=== PATIENT | female | born 1940 | race Caucasian/White ===

== ENCOUNTER 2017-09-21 12:34 | Inpatient (IN) | payer MEDICARE ==
[2017-09-21] MEDS ORDERED: METF-410 PO (12:45)
[2017-09-21] MEDS ORDERED: FURO20TA19 PO (12:46)
[2017-09-21] MEDS ORDERED: LEVO50TA86 PO (12:46)
[2017-09-21] MEDS ORDERED: LISI-362 PO (12:46)
[2017-09-21 13:32] LABS: PLATELET COUNT, AUTOMATED 212 K/uL (150-450)
--- NOTE | 2017-09-21 13:33 | EKG ---
FACILITY: [facility] PATIENT NAME: BAM LOCKWOOD : [id number] MR: [id number] V: [id number] EXAM DATE: ORDERING PHYSICIAN: MARCELLUS SONG TECHNOLOGIST: Andres Brown Reason : Blood Pressure : / mmHG Vent. Rate : 112 BPM Atrial Rate : 112 BPM P-R Int : 150 ms QRS Dur : 084 ms QT Int : 356 ms P-R-T Axes : 050 019 088 degrees QTc Int : 485 ms Sinus tachycardia Possible Left atrial enlargement Possible Anterolateral infarct , age undetermined Abnormal ECG No previous ECGs available Confirmed by EARL GASCA ([id number]) on 09/21/2017 11:47:15 PM Referred By: Confirmed By:EARL GASCA
--- NOTE | 2017-09-21 13:52 | ER Report ---
History and Physical Time Seen By MD: 13:12 Hx. of Stated Complaint: PT C/O SOB AND SWOLLEN ANKLES. WAS TAKING DIURETICS BUT THEY ARE NO LONGER WORKING HPI/ROS Chief concern: shortness of breath, swelling in legs. HPI: 77 y/o female presents with concern of shortness of breath x1 month and lower extremity edema x3 weeks. Currently taking Lasix for heart failure, denies taking dose this morning, but takes as ordered otherwise; unsure of dosage. Denies chest pain,heart palpitations, nausea/vomiting, fever, chills, sweats. Reports cool extremities, "gurgling, crackles" cough, wheezing, and occasional "wobbliness" when she stands up. Reports she has been sleeping in her arm chair for one month, due to increased difficulty breathing. Reports a weight loss Review of Systems: General: Respiratory: CV: GI: Neuro: Allergies: Coded Allergies: hydrochlorothiazide (Verified Allergy, Intermediate, RASH, 09/21/17) Home Meds Reported Medications Pravastatin Sodium (PRAVACHOL) 20 Mg Tablet, 40 MG PO QDAY, TAB 09/21/17 Lisinopril (LISINOPRIL) 40 Mg Tablet, 40 MG PO QDAY, TAB 09/21/17 Glipizide (GLIPIZIDE) 10 Mg Tablet, 10 MG PO BIDAC 09/21/17 Allopurinol (ZYLOPRIM) 300 Mg Tablet, 600 MG PO QDAY, TAB 09/21/17 Levothyroxine Sodium (LEVOTHYROXINE SODIUM) 50 Mcg Tablet, 100 MCG PO QDAY, TAB 09/21/17 Furosemide (LASIX) 20 Mg Tablet, 1 TAB PO QDAY, TAB 09/21/17 Metformin Hcl (METFORMIN HCL) 500 Mg Tablet, 1 TAB PO BID, TAB 09/21/17 Discontinued Reported Medications Lisinopril (LISINOPRIL) 10 Mg Tablet, 10 MG PO QDAY, TAB 09/21/17 Past Medical/Surgical History congestive heart failure date undetermined, kidney injury 2001; Reviewed Nurses Notes: Yes Old Medical Records Reviewed: No Hx Smoking: Yes Smoking Status: Former Smoker Hx Substance Use Disorder: No Hx Alcohol Use: No Constitutional Vital Sign - Last 24 Hours 09/21/17 09/21/17 09/21/17 09/21/17 12:38 12:40 13:04 13:34 Temp 96.3 Pulse 142 115 112 Resp 22 19 10 B/P (MAP) 124/80 124/80 (95) Pulse Ox 92 93 O2 Delivery Room Air 09/21/17 09/21/17 09/21/17 13:42 14:00 14:04 Pulse 105 Resp 25 B/P (MAP) 118/71 (87) 101/70 (80) Pulse Ox 90 Physical Exam Physical Exam: General: Alert, oriented x3, in no acute distress HENT: Posterior pharynx pink, no lymphadenopathy. Respiratory: coarse crackles scattered throughout, decreased respiratory effort , no acute respiratory distress CV: irregular rate and rhythm, 4+ pitting edema bilateral lower extremities, dorsalis pedis pulse nonpalpable, radial pulse 2+ regular, capillary refill < 2seconds all extremities GI: bowel sounds normoactive all quadrants, no tenderness to palpation. After obtaining thorough HPI and ROS, the following differentials were considered but not limited to: congestive heart failure, pulmonary embolism, myocardial infarction, kidney injury, stroke, pulmonary congestion. Medical Decision Making Data Points Result Diagram: 09/21/17 1315 09/21/17 1315 Laboratory Hematology Test 09/21/17 13:15 Red Blood Count 4.58 M/uL (4.17-5.56) Mean Corpuscular Volume 90.0 fL (80.0-96.0) Mean Corpuscular Hemoglobin 29.6 pg (26.0-33.0) Mean Corpuscular Hemoglobin Concent 32.9 g/dL (32.0-36.0) Red Cell Distribution Width 15.2 % (11.5-14.5) Mean Platelet Volume 9.1 fL (7.2-11.1) Neutrophils (%) (Auto) 76.4 % (39.4-72.5) Lymphocytes (%) (Auto) 14.4 % (17.6-49.6) Monocytes (%) (Auto) 6.4 % (4.1-12.4) Eosinophils (%) (Auto) 1.9 % (0.4-6.7) Basophils (%) (Auto) 0.9 % (0.3-1.4) Nucleated RBC Relative Count (auto) 0.1 /100WBC Neutrophils # (Auto) 4.7 K/uL (2.0-7.4) Lymphocytes # (Auto) 0.9 K/uL (1.3-3.6) Monocytes # (Auto) 0.4 K/uL (0.3-1.0) Eosinophils # (Auto) 0.1 K/uL (0.0-0.5) Basophils # (Auto) 0.1 K/uL (0.0-0.1) Nucleated RBC Absolute Count (auto) 0.01 K/uL D-Dimer Quantitative (PE/DVT) 3.40 ug/ml (0-0.50) Sodium Level 141 mmol/L (137-145) Potassium Level 3.0 mmol/L (3.5-5.0) Chloride Level 105 mmol/L (98-107) Carbon Dioxide Level 20 mmol/L (22-31) Blood Urea Nitrogen 27 mg/dl (7-18) Creatinine 1.80 mg/dl (0.52-1.04) Glomerular Filtration Rate Calc 27.4 Random Glucose 157 mg/dl (75-110) Calcium Level 9.1 mg/dl (8.4-10.2) Total Bilirubin 0.6 mg/dl (0.2-1.3) Aspartate Amino Transf (AST/SGOT) 16 U/L (0-35) Alanine Aminotransferase (ALT/SGPT) 22 U/L (0-56) Alkaline Phosphatase 97 U/L (0-126) Troponin I 0.017 ng/ml B-Type Natriuretic Peptide 2550 pg/ml (0-100) Total Protein 6.5 gm/dl (6.3-8.2) Albumin 3.6 g/dl (3.5-5.0) Chemistry Test 09/21/17 13:15 White Blood Count 6.1 k/uL (4.5-11.0) Red Blood Count 4.58 M/uL (4.17-5.56) Hemoglobin 13.6 g/dL (12.0-16.0) Hematocrit 41.2 % (34.0-47.0) Mean Corpuscular Volume 90.0 fL (80.0-96.0) Mean Corpuscular Hemoglobin 29.6 pg (26.0-33.0) Mean Corpuscular Hemoglobin Concent 32.9 g/dL (32.0-36.0) Red Cell Distribution Width 15.2 % (11.5-14.5) Platelet Count 212 K/uL (150-450) Mean Platelet Volume 9.1 fL (7.2-11.1) Neutrophils (%) (Auto) 76.4 % (39.4-72.5) Lymphocytes (%) (Auto) 14.4 % (17.6-49.6) Monocytes (%) (Auto) 6.4 % (4.1-12.4) Eosinophils (%) (Auto) 1.9 % (0.4-6.7) Basophils (%) (Auto) 0.9 % (0.3-1.4) Nucleated RBC Relative Count (auto) 0.1 /100WBC Neutrophils # (Auto) 4.7 K/uL (2.0-7.4) Lymphocytes # (Auto) 0.9 K/uL (1.3-3.6) Monocytes # (Auto) 0.4 K/uL (0.3-1.0) Eosinophils # (Auto) 0.1 K/uL (0.0-0.5) Basophils # (Auto) 0.1 K/uL (0.0-0.1) Nucleated RBC Absolute Count (auto) 0.01 K/uL D-Dimer Quantitative (PE/DVT) 3.40 ug/ml (0-0.50) Glomerular Filtration Rate Calc 27.4 Calcium Level 9.1 mg/dl (8.4-10.2) Total Bilirubin 0.6 mg/dl (0.2-1.3) Aspartate Amino Transf (AST/SGOT) 16 U/L (0-35) Alanine Aminotransferase (ALT/SGPT) 22 U/L (0-56) Alkaline Phosphatase 97 U/L (0-126) Troponin I 0.017 ng/ml B-Type Natriuretic Peptide 2550 pg/ml (0-100) Total Protein 6.5 gm/dl (6.3-8.2) Albumin 3.6 g/dl (3.5-5.0) Coagulation Test 09/21/17 13:15 D-Dimer Quantitative (PE/DVT) 3.40 ug/ml EKG/Imaging EKG Interpretation 12 lead EKG: Rhythm: Sinus tachycardia with ventricular rate of 112 bpm [place]: normal QRS: Low voltage QRS ST segments: normal Monitor Interpretation: Sinus Tachycardia Imaging CHEST PA AND LAT COMPARISONS: None. ADDITIONAL PERTINENT HISTORY: Shortness of breath FINDINGS: Cardiomediastinal silhouette: Negative. Pulmonary vasculature: Mild atherosclerotic disease of the thoracic aortic arch. Mild vascular congestion without shirley pulmonary edema. Lung villasenor: Bibasilar atelectatic change. Pleural spaces: Small bilateral pleural effusions. Osseous structures: Negative. Surrounding soft tissues: Negative. IMPRESSION: 1. Underlying vascular congestion without shirley pulmonary edema. 2. Small bilateral pleural effusions with overlying atelectatic change. Report Dictated By: Carlos Arriaga MD at 09/21/2017 1:56 PM Report E-Signed By: Carlos Arriaga MD at 09/21/2017 1:57 PM ED Course/Re-evaluation ED Course Patient admitted to exam room. Thorough HPI and ROS obtained. Physical exam: coarse crackles scattered throughout, decreased respiratory effort, no acute respiratory distress; CV: irregular rate and rhythm, 4+ pitting edema bilateral lower extremities, dorsalis pedis pulse nonpalpable, radial pulse 2+ regular, capillary refill <2seconds all extremities; GI: bowel sounds normoactive all quadrants, no tenderness to palpation. The following differentials were considered but not limited to: congestive heart failure, pulmonary embolism, myocardial infarction, kidney injury, stroke, pulmonary congestion. Tests ordered include: CXR, ECG, CBC, CMP, BNP, troponin, and d-dimer. BNP levels 2, 500, troponin 0.017, d-dimer 3.4, GFR 27, BUN 27, creatinine 1.8. CXR: IMPRESSION: 1. Underlying vascular congestion without shirley pulmonary edema. 2. Small bilateral pleural effusions with overlying atelectatic change. ECG: sinus tachycardia, possible left atrial enlargement, low voltage QRS; possible anterolateral infarct, age undetermined. After discussion with patient and the hospitalist, will admit to hospital today. Patient refused catheter placement. Will administer 40mg Lasix IV. Discussed with patient, and patient verbalized understanding and agreement to plan. Decision to Disposition Date: Sep 21, 2017 Decision to Disposition Time: 14:22 Depart Departure Latest Vital Signs Vital Signs Date Time Temp Pulse Resp B/P (MAP) Pulse Ox O2 Delivery O2 Flow Rate FiO2 09/21/17 14:04 105 25 90 09/21/17 14:00 101/70 (80) 09/21/17 12:38 96.3 Room Air Impression: Primary Impression: Congestive heart failure (CHF) Additional Impression: Hypokalemia Condition: Condition Unchanged Disposition: Admitted from ER Referrals: RACHANA CHRISTY (PCP) Problem Qualifiers Primary Impression: Congestive heart failure (CHF) Heart failure type: unspecified Heart failure chronicity: acute Qualified Codes: I50.9 - Heart failure, unspecified MARCELLUS SONG Sep 21, 2017 13:52
--- NOTE | 2017-09-21 14:01 | RADIOLOGY IMAGING REPORT ---
FACILITY: [facility] PATIENT NAME: Maribel Valdovinos : 1940 MR: [id number] V: [id number] EXAM DATE: ORDERING PHYSICIAN: MARCELLUS SONG TECHNOLOGIST: Location: [facility] [place] Patient: Maribel Valdovinos : 1940 Visit/Account:[id number] Date of Sevice: 09/21/2017 CHEST PA AND LAT COMPARISONS: None. ADDITIONAL PERTINENT HISTORY: Shortness of breath FINDINGS: Cardiomediastinal silhouette: Negative. Pulmonary vasculature: Mild atherosclerotic disease of the thoracic aortic arch. Mild vascular conge stion without shirley pulmonary edema. Lung villasenor: Bibasilar atelectatic change. Pleural spaces: Small bilateral pleural effusions. Osseous structures: Negative. Surrounding soft tissues: Negative. IMPRESSION: 1. Underlying vascular congestion without shirley pulmonary edema. 2. Small bilateral pleural effusions with overlying atelectatic change. Report Dictated By: Carlos Arriaga MD at 09/21/2017 1:56 PM Report E-Signed By: Carlos Arriaga MD at 09/21/2017 1:57 PM WSN:[email or web address]
[2017-09-21] MEDS ORDERED: FUROSEMIDE 40 MG/4 ML VIAL IVP ONE (14:25)
[2017-09-21 15:05] VITALS: BP 109/73
[2017-09-21] MEDS ORDERED: FLUSH 10 ML SYR IVP PRN (15:05)
[2017-09-21] MEDS ORDERED: ALLO-119 PO (16:02)
[2017-09-21] MEDS ORDERED: GLIP-154 PO (16:02)
[2017-09-21] MEDS ORDERED: LISI-374 PO (16:02)
[2017-09-21] MEDS ORDERED: PRAV20TA65 PO (16:02)
[2017-09-21] MEDS ORDERED: KCL (*) 20 MEQ/100 ML PREMIX 100 ML IV ONE (16:45)
[2017-09-21] MEDS ORDERED: NS(*) 0.9% 250 ML BAG 250 ML IVPB PRN (17:05)
--- NOTE | 2017-09-21 17:14 | History & Physical ---
History of Present Illness Chief Complaint Increased lower extremity swelling and increased shortness of breath for the past month. History of Present Illness The patient is a 77 year old female with PMH significant for stage 3 CKD, HTN and type 2 DM who presents with increased LE edema and shortness of breath for about a month. The patient states she has had LE edema which waxes and wanes but over the past month it has worsened significantly and extends to her knees. She denies any skin breakdown with this. The patient also notes she has had increased dyspnea with exertion. She can only walk a short distance without having to stop and catch her breath. She has also developed orthopnea and says if she doesn't prop herself up in bed she becomes short of breath. She also has some PND. She denies any history of cardiac issues. She does have a FH of CAD in her father. She has never smoked but does have HTN, hyperlipidemia and type II DM. She drinks about 2 glasses of wine per year. History Problems: (1) Atrophy of right kidney Status: Chronic (2) Vaginal delivery Status: Resolved Comment: X 3 (3) Hyperlipidemia Status: Chronic (4) Leg edema Status: Chronic (5) HTN (hypertension) Status: Chronic (6) CKD (chronic kidney disease) stage 3, GFR 30-59 ml/min Status: Chronic (7) Gout Status: Chronic (8) Type II diabetes mellitus Status: Chronic (9) Hypothyroidism Status: Chronic Home Meds Reported Medications Pravastatin Sodium (PRAVACHOL) 20 Mg Tablet, 40 MG PO QDAY, TAB 09/21/17 Lisinopril (LISINOPRIL) 40 Mg Tablet, 40 MG PO QDAY, TAB 09/21/17 Glipizide (GLIPIZIDE) 10 Mg Tablet, 10 MG PO BIDAC 09/21/17 Allopurinol (ZYLOPRIM) 300 Mg Tablet, 600 MG PO QDAY, TAB 09/21/17 Levothyroxine Sodium (LEVOTHYROXINE SODIUM) 50 Mcg Tablet, 100 MCG PO QDAY, TAB 09/21/17 Furosemide (LASIX) 20 Mg Tablet, 1 TAB PO QDAY, TAB 09/21/17 Metformin Hcl (METFORMIN HCL) 500 Mg Tablet, 1 TAB PO BID, TAB 09/21/17 Discontinued Reported Medications Lisinopril (LISINOPRIL) 10 Mg Tablet, 10 MG PO QDAY, TAB 09/21/17 Allergies: Coded Allergies: hydrochlorothiazide (Verified Allergy, Intermediate, RASH, 09/21/17) Patient History: FH: CAD (coronary artery disease) FATHER FH: hearing loss MOTHER BROTHER OR SISTER FH: rheumatoid arthritis CHILD Other Social/Family Hx The patient is and lives in [place]. Her oldest son lives with her. She is retired. Hx Smoking: Yes Smoking Status: Former Smoker (Smoked a little in college. ) Hx Alcohol Use: No Hx Substance Use Disorder: No History of IV Drug Use: No Review of Systems All Systems Reviewed/Normal: Yes, Except as Noted Constitutional: Weight Loss (Unintentional weight loss gradually since being diagnosed with CKD.) ENT: Other (Wears glasses. Has upper and lower dentures.) Cardiovascular: Other (No previous heart problems.), No Chest Pain Respiratory: Shortness of Breath, Cough (Has had 3 "bouts" of coughing over the past few weeks.) Gastrointestinal: No Nausea, Diarrhea (Has had diarrhea for about 6 months. Uses Imodium, up to 2 per day, at home.), Other (Decreased appetite.) Genitourinary: No Dysuria Musculoskeletal: Pain (General "aches and pains of aging".) Other Dry skin. Exam Vital Signs Vital Signs Date Time Temp Pulse Resp B/P (MAP) Pulse Ox O2 Delivery O2 Flow Rate FiO2 09/21/17 15:09 95 09/21/17 15:05 97.8 110 28 109/73 (85) Room Air General Appearance: Alert, Awake, No Acute Distress, Afebrile Neuro: No Gross deficits Eyes: PERRLA ENT: Moist Mucous Membranes Neck: Other (Carotids palpable bilaterally. No bruits. ) Cardiovascular: Other (Tachy, regular with audible S4 gallop.) Respiratory: No Respiratory Distress GI: Abd Soft and Non-Tender Lymph: Cervical Nodes Benign Extremities: Warm, Perfused, Edema (3+ edema.) Integumentary: Skin Intact without Lesion / Mass Psych: Alert & Oriented X3, Appropriate Mood & Affect Medical Decision Making Data Points Result Diagram: 09/21/17 1315 09/21/17 1315 Item Value Date Time D-Dimer Quantitative (PE/DVT) 3.40 ug/ml H 09/21/17 1315 Calcium Level 9.1 mg/dl 09/21/17 1315 Total Bilirubin 0.6 mg/dl 09/21/17 1315 Aspartate Amino Transf (AST/SGOT) 16 U/L 09/21/17 1315 Alanine Aminotransferase (ALT/SGPT) 22 U/L 09/21/17 1315 Alkaline Phosphatase 97 U/L 09/21/17 1315 Total Protein 6.5 gm/dl 09/21/17 1315 Albumin 3.6 g/dl 09/21/17 1315 Troponin I 0.017 ng/ml 09/21/17 1315 B-Type Natriuretic Peptide 2550 pg/ml H 09/21/17 1315 EKG / Imaging EKG Interpretation FACILITY: [facility] [place] PATIENT NAME: MARIBEL VALDOVINOS : [id number] MR: [id number] V: [id number] EXAM DATE: ORDERING PHYSICIAN: MARCELLUS SONG TECHNOLOGIST: Andres Brown Reason : Blood Pressure : / mmHG Vent. Rate : 112 BPM Atrial Rate : 112 BPM P-R Int : 150 ms QRS Dur : 084 ms QT Int : 356 ms P-R-T Axes : 050 019 088 degrees QTc Int : 485 ms Sinus tachycardia Possible Left atrial enlargement Low voltage QRS Possible Anterolateral infarct , age undetermined Abnormal ECG No previous ECGs available Referred By: Confirmed By: [id number] T: / Imaging FACILITY: [facility] [place] PATIENT NAME: Maribel Valdovinos : 1940 MR: [id number] V: [id number] EXAM DATE: ORDERING PHYSICIAN: MARCELLUS SONG [place]CHNOLOGIST: [place] [facility] [place] Maribel Valdov[place] : 1940 Visit/Account:[id number] Date of Sevice: 09/21/2017 CHEST PA AND LAT COMPARISONS: None. ADDITIONAL PERTINENT HISTORY: Shortness of breath FINDINGS: Cardiomediastinal silhouette: Negative. Pulmonary vasculature: Mild atherosclerotic disease of the thoracic aortic arch. Mild vascular congestion without shirley pulmonary edema. Lung villasenor: Bibasilar atelectatic change. Pleural spaces: Small bilateral pleural effusions. Osseous structures: Negative. Surrounding soft tissues: Negative. IMPRESSION: 1. Underlying vascular congestion without shirley pulmonary edema. 2. Small bilateral pleural effusions with overlying atelectatic change. Report Dictated By: Carlos Arriaga MD at 09/21/2017 1:56 PM Report E-Signed By: Carlos Arriaga MD at 09/21/2017 1:57 PM WSN:[email or web address] Pre-Admit Course Medical Record Review: Yes (Records from Rachana Muir's office.) Assessment and Plan Problems: (1) Congestive heart failure (CHF) Status: Acute Assessment & Plan: The patient has had orthopnea, PND, dyspnea on exertion and increased LE edema. Her BNP on admission is 2250. CXR showed underlying vascular congestion and bilateral pleural effusions. No history of cardiac issues. She received a dose of Lasix 40mg in ER. Echocardiogram ordered. (2) Leg edema Status: Chronic Assessment & Plan: Worsened over the past month. Lasix given. Echo ordered. Will elevate legs. (3) CKD (chronic kidney disease) stage 3, GFR 30-59 ml/min Status: Chronic Assessment & Plan: Stage 3 per old records. She sees Dr. Blanco. (4) Type II diabetes mellitus Status: Chronic Assessment & Plan: She is on metformin and glipizide at home. Will order glucose monitoring and SSI for now. (5) Hypothyroidism Status: Chronic Assessment & Plan: TSH ordered. Continue levothyroxine. (6) Hyperlipidemia Status: Chronic Assessment & Plan: On pravastatin. (7) HTN (hypertension) Status: Chronic Assessment & Plan: On lisinopril 10mg. (8) Atrophy of right kidney Status: Chronic Assessment & Plan: Etiology unknown. (9) Gout Status: Chronic Assessment & Plan: On allopurinol. Time Spent on Plan of Care: < 30 min Copies to: RACHANA MUIR Venous Thromboembolism Antithrombotics Is Pt On Any Antithrombotics?: Yes (Lovenox.) Exam Sepsis Risk: No Definite Risk Problem Qualifiers (1) Congestive heart failure (CHF): Heart failure type: unspecified Heart failure chronicity: acute Qualified Codes: I50.9 - Heart failure, unspecified EARL WASSERMAN MD Sep 21, 2017 17:14
[2017-09-21] MEDS: POTASSIUM CHL 10 MEQ TABCR PO SCH (17:24)
[2017-09-21 21:35] VITALS: BP 106/75
[2017-09-22 06:04] VITALS: BP 102/67
[2017-09-22] MEDS: LEVOTHYROXINE SOD 0.05 MG TAB PO SCH (06:07)
[2017-09-22 06:33] LABS: PLATELET COUNT, AUTOMATED 202 K/uL (150-450)
--- NOTE | 2017-09-22 08:36 | RADIOLOGY IMAGING REPORT ---
FACILITY: [facility] PATIENT NAME: Maribel Valdovinos : 1940 MR: [id number] V: [id number] EXAM DATE: ORDERING PHYSICIAN: EARL WASSERMAN [place]CHNOLOGIST: [place] [facility] [place] Maribel Valdovinos : 1940 Visit/Account:[id number] Date of Sevice: 09/22/2017 Examination: CHEST SINGLE AP Comparison: 09/21/2017 History: Heart failure. Findings: Cardiac and hilar contour size is within normal limits and unchanged. Mild vascular congest ion with mild indistinctness of the central and infrahilar bronchovascular markings suggestive of pul monary edema. Small right pleural effusion and trace left pleural effusion. No pneumothorax. No new o r enlarging consolidation. Osseous structures are intact. IMPRESSION: Minimally changed chest with small right and trace left pleural effusions and probable mild pulmonary edema. Report Dictated By: Layo Gupta MD at 09/22/2017 8:31 AM Report E-Signed By: Layo Gupta MD at 09/22/2017 8:32 AM WSN:[id number]
[2017-09-22] MEDS ORDERED: INSULIN HUM LISPRO 100 UN/ML 3 ML VIAL SUBQ PRN (08:40)
[2017-09-22] MEDS ORDERED: OXYC-869 PO (08:43)
[2017-09-22] MEDS: POTASSIUM CHL 10 MEQ TABCR PO SCH ×2 (08:47→17:30)
[2017-09-22] MEDS: ENOXAPARIN 40 MG/0.4ML SYR SC SCH (08:47)
[2017-09-22] MEDS: LISINOPRIL 10 MG TAB PO SCH (08:47)
[2017-09-22] MEDS: FUROSEMIDE 40 MG/4 ML VIAL IVP SCH ×2 (09:33→14:40)
[2017-09-22] MEDS: LOPERAMIDE HCL 2 MG CAP PO PRN (10:19)
--- NOTE | 2017-09-22 12:02 | Hospitalist Progress Note ---
Subjective Progress Notes Subjective This patient was admitted for heart failure. She had no acute changes overnight. Patient Complains of: Cardiovascular: No: Chest Pain Respiratory: Shortness of Breath Physical Exam Vital Signs Date Time Temp Pulse Resp B/P (MAP) Pulse Ox O2 Delivery O2 Flow Rate FiO2 09/22/17 07:10 90 09/22/17 06:40 90 09/22/17 06:04 97.5 16 102/67 (79) Room Air Intake and Output 09/23/17 07:00 Intake Total 120 ml Output Total 50 ml Balance 70 ml Intake Oral 120 ml Output Urine Total 50 ml # Voids 1 Neuro: No Gross deficits Cardiovascular: Regular Rate and Rhythm, Other (JVD present.) Respiratory: Other (Crackles at bases.) Extremities: Edema Integumentary: No Cyanosis Result Diagram: 09/22/1752709/22/17527 Imaging Echocardiogram reviewed. Monitor Interpretation: Sinus Tachycardia Assessment and Plan Problems: (1) Acute systolic (congestive) heart failure Assessment & Plan: She did present with increased edema and shortness of breath. Her echocardiogram is pending an official report, but it looks as though she has an ejection fraction of around 35% and significant akinesis of the left ventricle. She has been started on scheduled Lasix. She is already on chronic treatment with lisinopril. She may benefit from cardiology follow up. (2) Type II diabetes mellitus Status: Chronic Assessment & Plan: She is on chronic treatment with metformin and glipizide. Both of these medications are currently on hold. She is on sliding scale level #2. (3) Hypothyroidism Status: Chronic Assessment & Plan: She is on chronic treatment with Synthroid. A TSH was within normal limits. (4) Hyperlipidemia Status: Chronic Assessment & Plan: She is on chronic treatment with pravastatin. (5) Gout Status: Chronic Assessment & Plan: She is on chronic treatment with allopurinol. (6) Atrophy of right kidney Status: Chronic Assessment & Plan: Etiology unknown. (7) CKD (chronic kidney disease) stage 3, GFR 30-59 ml/min Status: Chronic Assessment & Plan: Stage 3 per old records. She sees Dr. Blanco. Exam Sepsis Risk: No Definite Risk DEVI CARSON DO Sep 22, 2017 12:02
[2017-09-22 12:08] VITALS: BP 109/72
--- NOTE | 2017-09-22 12:25 | Medical Nutrition Therapy ---
Nutrition Anthropometrics Weight (Pounds): 144 Weight (Calculated Kilograms): 65.516 Néstor Nutrition Score: Adequate Néstor Nutrition Risk Score: 19 Dietary Referral Nutrition Risk Factors: Unplanned Loss >10lbs Nutrition Risk Comment: Physical Findings Physical Appearance: Skin Appearance Skin Appearance: Edema Edema Location Modifier: Both Edema Location: Lower Extremity Type of Edema: Degree of Edema: 3+ Gastrointestinal Symptoms GI Symtoms: Tube Present: Bowel Sounds: Recent Bowel Pattern: Stool Characteristics: Nutrition/Food History No Significant Nutr. HX Nutritional Diagnosis Nutritional Risk Acuity 2: CHF w/Complication Nutritional Acuity: 2-Moderate Nutrition Diagnosis: Decreased Nutrient Needs Nutrition Etiology: Physiological Causes Diet Type: Cardiac Nutrition Intervention: Cont diet as ordered Nutrition Monitoring & Eval Nutrition Goals: Eat 50-100% Meal RD Patient Assessment Time: [address] Assessment Type: RD Re-Assessment Patient Nutrition Acuity: 2-Moderate Follow Up Date: Sep 25, 2017 Nutritional Comment: Pt admitted for CHF. Alb 3.6, BNP 2550, Glu 157, High BUN/Creat. Wt 65.516 kg with 4+ pitting edema in lower extremities. Receiving Cardiac/CHF diet and consuming 75% of meals. Follow intake, wt, labs, etc. STEVE HARMAN Sep 22, 2017 12:24
[2017-09-22 16:24] VITALS: BP 99/67
--- NOTE | 2017-09-22 17:18 | RADIOLOGY IMAGING REPORT ---
[place] [facility] [place] NAME: BAM LOCKWOOD : [id number] MR: [id number] V: [id number] EXAM DATE: ORDERING PHYSICIAN: EARL WASSERMAN TECHNOLOGIST: Jennifer Goodwin EXAMINATION:TWO-DIMENSIONAL ECHOCARDIOGRAPH REASON:CHF 2D Measurements (normal values in centimeters) LV endLV endRV endVent.LV PostAorticLeftPercent DiastolicSystolicDiastolicSeptumWallRootAtriumShortening (3.5-5.7)(0.9-2.6)(0.6-1.1)(0.6-1.1)(2.0-3.7)(1.9-4.0)(25-35%) [id number]% STROKE VOLUME: 53ml ESTIMATED EJECTION FRACTION:35% on average. PARASTERNAL LONG AXIS: Left ventricular systolic function is severely decreased. Right ventricle does appear to contract but the septal wall of the right ventricle is not well seen. Aortic valve appears to open normally. There is mild mitral annular calcification. Color examination of the valves reveals some mitral insufficiency as well as a trace of aortic insufficiency present. Mild aortic calcification as well. Septal wall appears to be akinetic. PARASTERNAL SHORT AXIS: Again severely decreased left ventricular systolic function. There is akinesis along the septal wall. Other barros also appear to be hypokinetic. Aortic valve is trileaflet in configuration with mild aortic sclerosis but it does not appear to be stenotic. There is a trace of aortic insufficiency present. Tricuspid insufficiency is also noted. APICAL FOUR AND TWO CHAMBER: Left ventricular systolic function again appears to be severely decreased. Aortic valve area was measured within normal ranges at 2.7cm2. Mitral valve area measured within normal ranges at 5.2cm2. Left atrial & right atrial volumes showed mildly increased left atrial volume with normal right atrial volume. Color examination of the valves reveals moderate to borderline severe amount of tricuspid insufficiency. The tricuspid regurgitation Vmax measured 3.85m/sec. Probable severe mitral insufficiency with an eccentrically directed jet toward the free wall of the left atrium. The regurgitant volume was 103ml. The regurgitant fraction 64%. Effective regurgitant orifice is 58. Mildly calcified moderator band in the right ventricle. Right ventricular function appears to be mildly decreased. The TAPSE is measured at 1.4. There is also akinesis at the apex of the left ventricle. Definity contrast was used. No thrombus was noted in the apex of the left ventricle. SUBCOSTAL VIEW: No pericardial effusion was noted. No atrioseptal or ventriculoseptal defects were appreciated. IVC is enlarged with estimated right atrial pressure of 15mm Hg. There is significantly decreased Strain along the apex in the interventricular septum. The other barros are hypokinetic. Doppler examination of the mitral valve in diastole does reveal the E wave more than twice the velocity of the A wave suggesting significant decrease in diastolic function. Lateral & medial E prime velocities are also decreased. The PISA of the mitral regurgitation is 1.1cm at an aliasing velocity of 31. OVERALL IMPRESSION: 1. Significantly decreased left ventricular ejection fraction measuring approximately 35% with some generalized hypokinesis but also akinesis along the interventricular septum & the apex. No thrombus was noted in the apex & Definity contrast was used. 2. Severe decrease in diastolic function. 3. Mild decrease in right ventricular function that is evidenced by the TAPSE measured at 1.4. 4. Mild left atrial size increase with the other chamber sizes being normal. 5. A trileaflet aortic valve with mild aortic sclerosis but no stenosis & a trace of aortic insufficiency. 6. A mild amount of pulmonic insufficiency. 7. Moderate to severe amount of tricuspid insufficiency with estimated right ventricular systolic pressures of 64mm Hg which does include an estimated right atrial pressure of 15mm Hg indicating severe pulmonary hypertension & increased right ventricular systolic pressures. 8. Severe amount of mitral insufficiency with mild mitral annular calcification. Dictated by: Saida Blancas M.D. on 09/22/2017 at 8:42 Transcribed by: ANNAMARIE on 09/22/2017 at 13:20 Approved by: Saida Blancas M.D. on 09/22/2017 at 17:17 [facility] [employer]
[2017-09-22 20:17] VITALS: BP 110/69
[2017-09-22] MEDS: ACETAMINOPHEN 325 MG TAB PO PRN (22:11)
[2017-09-22 23:00] VITALS: BP 105/62
[2017-09-23 03:03] VITALS: BP 111/76
[2017-09-23] MEDS: LEVOTHYROXINE SOD 0.05 MG TAB PO SCH (05:22)
[2017-09-23 08:22] VITALS: BP 118/78
[2017-09-23] MEDS: LISINOPRIL 10 MG TAB PO SCH (08:25)
[2017-09-23] MEDS: ENOXAPARIN 40 MG/0.4ML SYR SC SCH (08:25)
[2017-09-23] MEDS: POTASSIUM CHL 10 MEQ TABCR PO SCH ×2 (08:26→17:19)
[2017-09-23] MEDS: FUROSEMIDE 40 MG TAB PO SCH (11:00)
[2017-09-23] MEDS: CARVEDILOL 3.125 MG TAB PO SCH ×2 (11:00→20:47)
[2017-09-23 11:41] VITALS: BP 95/75
[2017-09-23] MEDS ORDERED: FUROSEMIDE 20 MG TAB PO SCH (14:00)
[2017-09-23] MEDS: LOPERAMIDE HCL 2 MG CAP PO PRN (14:05)
[2017-09-23 14:55] VITALS: BP 98/66
--- NOTE | 2017-09-23 15:20 | RADIOLOGY IMAGING REPORT ---
FACILITY: [facility] - [place] PATIENT NAME: Maribel Valdovinos : 1940 MR: [id number] V: [id number] EXAM DATE: ORDERING PHYSICIAN: BHUMI WALLS TECHNOLOGIST: Location: [facility] Patient: Maribel Valdovinos : 1940 Visit/Account:[id number] Date of Sevice: 09/23/2017 Exam type: VENOUS DOPP LOWER BILAT EXTREM History: Right lower extremity swelling Comparison: None. Findings: There is extensive DVT of the left lower extremity veins including the left common femoral vein just below the level of the greater saphenous vein and throughout the left superficial femoral vein, popli teal vein, peroneal vein and posterior tibial vein. The anterior tibial vein on the left was zach sible and demonstrated flow There is extensive DVT throughout the right lower extremity vein including the right common femoral v ein below the greater saphenous vein the profunda femoral vein, the superficial femoral vein, the pop liteal vein, posterior tibial vein, peroneal vein and anterior tibial vein IMPRESSION: 1. Extensive DVT throughout the lower extremity veins bilaterally from the common femoral veins into the calf veins with only the left anterior tibial vein free of thrombus. Findings were communicated to the patient's nurse at the time of the examination by the technologist Report Dictated By: Jing Su MD at 09/23/2017 3:06 PM Report E-Signed By: Jing Su MD at 09/23/2017 3:14 PM WSN:[email or web address]
[2017-09-23] MEDS ORDERED: ENOXAPARIN 30 MG/0.3 ML SYR SC ONE (15:35)
[2017-09-23] MEDS ORDERED: WARFARIN SOD 2.5 MG TAB PO SCH (15:35)
[2017-09-23] MEDS: ACETAMINOPHEN 325 MG TAB PO PRN (20:01)
[2017-09-23 20:02] VITALS: BP 107/76
[2017-09-23 23:09] VITALS: BP 99/76
[2017-09-24 03:08] VITALS: BP 107/70
[2017-09-24] MEDS: LEVOTHYROXINE SOD 0.05 MG TAB PO SCH (05:41)
[2017-09-24 05:54] LABS: PLATELET COUNT, AUTOMATED 228 K/uL (150-450)
[2017-09-24 06:05] LABS: INR 1.08
[2017-09-24 07:10] VITALS: BP 116/84
[2017-09-24] MEDS: CARVEDILOL 3.125 MG TAB PO SCH (08:35)
[2017-09-24] MEDS: POTASSIUM CHL 10 MEQ TABCR PO SCH (08:35)
[2017-09-24] MEDS: FUROSEMIDE 40 MG TAB PO SCH (08:35)
[2017-09-24] MEDS: LISINOPRIL 10 MG TAB PO SCH (08:35)
[2017-09-24] MEDS ORDERED: ENOXAPARIN 100 MG/ML SYR SC SCH (09:00)
[2017-09-24] MEDS ORDERED: INFLUENZA VIRUS VAC 0.5 ML SYR IM ONLY ONE (09:00)
--- NOTE | 2017-09-24 10:24 | Hospitalist Progress Note ---
Subjective Progress Notes Subjective This is a note for 09/23: No problems o/n. Breathing much better. Still with edema. Physical Exam Vital Signs Date Time Temp Pulse Resp B/P (MAP) Pulse Ox O2 Delivery O2 Flow Rate FiO2 09/24/17 07:17 92 Room Air 09/24/17 07:10 97.2 95 14 116/84 (95) 09/23/17 11:41 1.0 General Appearance: Alert, Awake, No Acute Distress Cardiovascular: Regular Rate and Rhythm Respiratory: Clear to Auscultation Extremities: Edema (1-2+ in shins bilaterally. R>L) Result Diagram: 09/24/17 0530 09/24/17 0530 Monitor Interpretation: Sinus Tachycardia Assessment and Plan Problems: (1) Acute systolic (congestive) heart failure Assessment & Plan: She did present with increased edema and shortness of breath. Her echocardiogram is pending an official report, but it looks as though she has an ejection fraction of around 35%, severe IL, and significant akinesis of the left ventricle. She has been started on scheduled Lasix. She is already on chronic treatment with lisinopril, but the dose has been reduced in the hospital. Coreg started today. I am awaiting a return call from Dr. Lai (Cardiology). (2) DVT (deep venous thrombosis) Status: Acute Assessment & Plan: Bilateral LE DVT. Unclear when it occurred, but likely a couple of weeks ago. Because of the CKD, will start Lovenox and Warfarin. (3) Type II diabetes mellitus Status: Chronic Assessment & Plan: She is on chronic treatment with metformin and glipizide. Both of these medications are currently on hold. She is on sliding scale level #2. (4) Hypothyroidism Status: Chronic Assessment & Plan: She is on chronic treatment with Synthroid. A TSH was within normal limits. (5) Hyperlipidemia Status: Chronic Assessment & Plan: She is on chronic treatment with pravastatin. (6) Gout Status: Chronic Assessment & Plan: She is on chronic treatment with allopurinol. (7) Atrophy of right kidney Status: Chronic Assessment & Plan: Etiology unknown. (8) CKD (chronic kidney disease) stage 3, GFR 30-59 ml/min Status: Chronic Assessment & Plan: Stage 3 per old records. She sees Dr. Blanco. Exam Sepsis Risk: No Definite Risk BHUMI WALLS MD Sep 24, 2017 10:24
[2017-09-24] MEDS ORDERED: POTA-23 PO (10:53)
[2017-09-24] MEDS ORDERED: CAR3.125 PO (10:53)
[2017-09-24] MEDS ORDERED: WARF2.5T11 PO (10:53)
[2017-09-24] MEDS ORDERED: LISI-362 PO (10:53)
[2017-09-24] MEDS ORDERED: ENOX60DI10 SQ (10:53)
[2017-09-24] MEDS ORDERED: LEVO50TA86 PO (10:53)
--- NOTE | 2017-09-24 11:11 | Hospitalist Depart ---
Discharge Summary Reason for Hosp/Final Diag: (1) Acute systolic (congestive) heart failure Hospital Course & Plan: She did present with increased edema and shortness of breath. Her echocardiogram shows an ejection fraction of around 35%, severe mitral regurgitation, and significant akinesis of the left ventricle. She has been started on carvedilol and Lasix. She is already on chronic treatment with lisinopril, but the dose has been reduced in the hospital to 10mg daily. She was tolerating activities fairly well. She was not requiring supplemental oxygen. She will need to follow up very soon with her PCP (Rachana ISAAC) and Cardiology regarding further work-up and management of her medications. We have arranged for appointments. (2) DVT (deep venous thrombosis) Status: Acute Hospital Course & Plan: Bilateral LE DVT. Unclear when it occurred, but likely a couple of weeks ago. Because of the CKD, we did start Lovenox daily dosing and Warfarin. She will need close follow up on her protime/INR. I did contact Rachana ISAAC and she will monitor this. She will have a protime on MON 09/27/17. (3) Type II diabetes mellitus Status: Chronic Hospital Course & Plan: She is on chronic treatment with metformin and glipizide. Her metformin will be stopped for now, due to CHF and CKD. She will continue on the glipizide. (4) Hypothyroidism Status: Chronic Hospital Course & Plan: She is on chronic treatment with Synthroid. Her TSH was within normal limits. (5) Hyperlipidemia Status: Chronic Hospital Course & Plan: She is on chronic treatment with pravastatin. (6) Gout Status: Chronic Hospital Course & Plan: She is on chronic treatment with allopurinol. (7) Atrophy of right kidney Status: Chronic Hospital Course & Plan: Etiology unknown. (8) CKD (chronic kidney disease) stage 3, GFR 30-59 ml/min Status: Chronic Hospital Course & Plan: Stage [address] Dr[address] Blanco. Departure Weight (Pounds): 143 Weight (Ounces): 6.0 Result Diagram: 09/24/1730 09/24/17 0530 Item Value Date Time Sodium Level 141 mmol/L 09/21/17 1315 Potassium Level 3.0 mmol/L L 09/21/17 1315 Chloride Level 105 mmol/L 09/21/17 1315 Carbon Dioxide Level 20 mmol/L L 09/21/17 1315 Blood Urea Nitrogen 27 mg/dl H 09/21/17 1315 Creatinine 1.80 mg/dl H 09/21/17 131 Glomerular Filtration Rate Calc 27.4 09/21/17 1315 Random Glucose 157 mg/dl H 09/21/17 1315 Calcium Level 9.1 mg/dl 09/21/17 1315 Total Bilirubin 0.6 mg/dl 09/21/17 1315 Aspartate Amino Transf (AST/SGOT) 16 U/L 09/21/17 1315 Alanine Aminotransferase (ALT/SGPT) 22 U/L 09/21/17 1315 Alkaline Phosphatase 97 U/L 09/21/17 1315 Troponin I 0.017 ng/ml 09/21/175 Total Protein 6.5 gm/dl 09/21/171314 Albumin 3.6 g/dl 09/21/171314 Thyroid Stimulating Hormone (TSH) 3.00 uIU/ml 09/22/17 0528 B-Type Natriuretic Peptide 2550 pg/ml H 09/21/17 1315 Random Glucose 126 mg/dl H 09/22/17 0528 Glomerular Filtration Rate Calc 29.3 09/22/17 0528 Creatinine 1.70 mg/dl H 09/22/17 0528 Blood Urea Nitrogen 26 mg/dl H 09/22/17 0528 Carbon Dioxide Level 20 mmol/L L 09/22/17 0528 Chloride Level 106 mmol/L 09/22/17 0528 Potassium Level 3.8 mmol/L 09/22/17 0528 Sodium Level 140 mmol/L 09/22/17 0528 Sodium Level 140 mmol/L 09/23/17 0601 Potassium Level 3.9 mmol/L 09/23/17 0601 Chloride Level 105 mmol/L 09/23/17 0601 Carbon Dioxide Level 23 mmol/L 09/23/17 0601 Blood Urea Nitrogen 29 mg/dl H 09/23/17 0601 Creatinine 1.70 mg/dl H 09/23/17 0601 Glomerular Filtration Rate Calc 29.3 09/23/17 0601 Random Glucose 123 mg/dl H 09/23/17 0601 Calcium Level 8.9 mg/dl 09/23/17 0601 B-Type Natriuretic Peptide 2920 pg/ml H 09/24/17 0530 Prothrombin Time 14.0 seconds 09/24/17 0530 Prothromb Time International Ratio 1.08 09/24/17 0530 White Blood Count 6.1 k/uL 09/21/17 1315 Hemoglobin 13.6 g/dL 09/21/17 1315 Hematocrit 41.2 % 09/21/17 1315 Platelet Count 212 K/uL 09/21/17 1315 Imaging PATIENT NAME: Maribel Lockwood : 1940 MR: [id number] V: [id number] EXAM DATE: ORDERING PHYSICIAN: MARCELLUS SONG TECHNOLOGIST: Location: [facility] Patient: Maribel Lockwood : 1940 Visit/Account:[id number] Date of Sevice: 09/21/2017 CHEST PA AND LAT COMPARISONS: None. ADDITIONAL PERTINENT HISTORY: Shortness of breath FINDINGS: Cardiomediastinal silhouette: Negative. Pulmonary vasculature: Mild atherosclerotic disease of the thoracic aortic arch. Mild vascular congestion without shirley pulmonary edema. Lung villasenor: Bibasilar atelectatic change. Pleural spaces: Small bilateral pleural effusions. Osseous structures: Negative. Surrounding soft tissues: Negative. IMPRESSION: 1. Underlying vascular congestion without shirley pulmonary edema. 2. Small bilateral pleural effusions with overlying atelectatic change. Report Dictated By: Carlos Arriaga MD at 09/21/2017 1:56 PM Report E-Signed By: Carlos Arriaga MD at 09/21/2017 1:57 PM WSN:[email or web address] PATIENT NAME: MARIBEL LOCKWOOD : [id number] MR: [id number] V: [id number] EXAM DATE: [id number] ORDERING PHYSICIAN: EARL WASSERMAN TECHNOLOGIST: Jennifer Goodwin EXAMINATION: T WO-DIMENSIONAL ECHOCARDIOGRAPH REASON: CHF 2D Measurements (normal values in centimeters) LV end LV end RV end Vent. LV Post Aortic Left Percent Diastolic Systolic Diastolic Septum Wall Root Atrium Shortening (3.5-5.7) (0.9-2.6) (0.6-1.1) (0.6-1.1) (2.0-3.7) (1.9-4.0) (25-35%) 4.8 3.8 2.7 .76 .88 3.0 4.2 20% STROKE VOLUME: 53ml ESTIMATED EJECTION FRACTION: 35% on average. PARASTERNAL LONG AXIS: Left ventricular systolic function is severely decreased. Right ventricle does appear to contract but the septal wall of the right ventricle is not well seen. Aortic valve appears to open normally. There is mild mitral annular calcification. Color examination of the valves reveals some mitral insufficiency as well as a trace of aortic insufficiency present. Mild aortic calcification as well. Septal wall appears to be akinetic. PARASTERNAL SHORT AXIS: Again severely decreased left ventricular systolic function. There is akinesis along the septal wall. Other barros also appear to be hypokinetic. Aortic valve is trileaflet in configuration with mild aortic sclerosis but it does not appear to be stenotic. There is a trace of aortic insufficiency present. Tricuspid insufficiency is also noted. APICAL FOUR AND TWO CHAMBER: Left ventricular systolic function again appears to be severely decreased. Aortic valve area was measured within normal ranges at 2.7cm2. Mitral valve area measured within normal ranges at 5.2cm2. Left atrial & right atrial volumes showed mildly increased left atrial volume with normal right atrial volume. Color examination of the valves reveals moderate to borderline severe amount of tricuspid insufficiency. The tricuspid regurgitation Vmax measured 3.85m/sec. Probable severe mitral insufficiency with an eccentrically directed jet toward the free wall of the left atrium. The regurgitant volume was 103ml. The regurgitant fraction 64%. Effective regurgitant orifice is 58. Mildly calcified moderator band in the right ventricle. Right ventricular function appears to be mildly decreased. The TAPSE is measured at 1.4. There is also akinesis at the apex of the left ventricle. Definity contrast was used. No thrombus was noted in the apex of the left ventricle. SUBCOSTAL VIEW: No pericardial effusion was noted. No atrioseptal or ventriculoseptal defects were appreciated. IVC is enlarged with estimated right atrial pressure of 15mm Hg. There is significantly decreased Strain along the apex in the interventricular septum. The other barros are hypokinetic. Doppler examination of the mitral valve in diastole does reveal the E wave more than twice the velocity of the A wave suggesting significant decrease in diastolic function. Lateral & medial E prime velocities are also decreased. The PISA of the mitral regurgitation is 1.1cm at an aliasing velocity of 31. OVERALL IMPRESSION: 1. Significantly decreased left ventricular ejection fraction measuring approximately 35% with some generalized hypokinesis but also akinesis along the interventricular septum & the apex. No thrombus was noted in the apex & Definity contrast was used. 2. Severe decrease in diastolic function. 3. Mild decrease in right ventricular function that is evidenced by the TAPSE measured at 1.4. 4. Mild left atrial size increase with the other chamber sizes being normal. 5. A trileaflet aortic valve with mild aortic sclerosis but no stenosis & a trace of aortic insufficiency. 6. A mild amount of pulmonic insufficiency. 7. Moderate to severe amount of tricuspid insufficiency with estimated right ventricular systolic pressures of 64mm Hg which does include an estimated right atrial pressure of 15mm Hg indicating severe pulmonary hypertension & increased right ventricular systolic pressures. 8. Severe amount of mitral insufficiency with mild mitral annular calcification. Dictated by: Saida Blancas M.D. on 09/22/2017 at 8:42 Transcribed by: ANNAMARIE on 09/22/2017 at 13:20 Approved by: Saida Blancas M.D. on 09/22/2017 at 17:17 [facility] PATIENT NAME: Maribel Lockwood : 1940 MR: [id number] V: [id number] EXAM DATE: ORDERING PHYSICIAN: EARL WASSERMAN TECHNOLOGIST: Location: [facility] Patient: Maribel Lockwood : 1940 Visit/Account:[id number] Date of Sevice: 09/22/2017 Examination: CHEST SINGLE AP Comparison: 09/21/2017 History: Heart failure. Findings: Cardiac and hilar contour size is within normal limits and unchanged. Mild vascular congestion with mild indistinctness of the central and infrahilar bronchovascular markings suggestive of pulmonary edema. Small right pleural effusion and trace left pleural effusion. No pneumothorax. No new or enlarging consolidation. Osseous structures are intact. IMPRESSION: Minimally changed chest with small right and trace left pleural effusions and probable mild pulmonary edema. Report Dictated By: Layo Gupta MD at 09/22/2017 8:31 AM Report E-Signed By: Layo Gupta MD at 09/22/2017 8:32 AM WSN:[id number] PATIENT NAME: Maribel Lockwood : 1940 MR: [id number] V: [id number] EXAM DATE: [id number] ORDERING PHYSICIAN: BHUMI WALLS TECHNOLOGIST: Location: [facility] Patient: Maribel Lockwood : 1940 Visit/Account:[id number] Date of Sevice: 09/23/2017 Exam type: VENOUS DOPP LOWER BILAT EXTREM History: Right lower extremity swelling Comparison: None. Findings: There is extensive DVT of the left lower extremity veins including the left common femoral vein just below the level of the greater saphenous vein and throughout the left superficial femoral vein, popliteal vein, peroneal vein and posterior tibial vein. The anterior tibial vein on the left was compressible and demonstrated flow There is extensive DVT throughout the right lower extremity vein including the right common femoral vein below the greater saphenous vein the profunda femoral vein, the superficial femoral vein, the popliteal vein, posterior tibial vein, peroneal vein and anterior tibial vein IMPRESSION: 1. Extensive DVT throughout the lower extremity veins bilaterally from the common femoral veins into the calf veins with only the left anterior tibial vein free of thrombus. Findings were communicated to the patient's nurse at the time of the examination by the technologist Report Dictated By: Jing Su MD at 09/23/2017 3:06 PM Report E-Signed By: Jing Su MD at 09/23/2017 3:14 PM WSN:[email or web address] PATIENT NAME: MARIBEL LOCKWOOD : [id number] MR: [id number] V: [id number] EXAM DATE: ORDERING PHYSICIAN: MARCELLUS SONG TECHNOLOGIST: Andres Test Reason : Blood Pressure : / mmHG Vent. Rate : 112 BPM Atrial Rate : 112 BPM P-R Int : 150 ms QRS Dur : 084 ms QT Int : 356 ms P-R-T Axes : 050 019 088 degrees QTc Int : 485 ms Sinus tachycardia Possible Left atrial enlargement Possible Anterolateral infarct , age undetermined Abnormal ECG No previous ECGs available Confirmed by EARL GASCA ([id number]) on 09/21/2017 11:47:15 PM Referred By: Confirmed By:EARL GASCA Condition: Improved Discharge: Home Follow-Up Labs: INR (On Wednesday09/27/17 with results to Rachana ISAAC. CBC, BMP at same time.) Time Spent: > 30 min Discharge Instructions Home Meds Active Scripts Enoxaparin Sodium (ENOXAPARIN SODIUM) 60 Mg/0.6 Ml Disp.syrin, 60 MG SQ daily at 0900, #4 SYR 1 Refill Prov:BLAINE WASSERMAN MD 09/24/17 Warfarin Sodium (WARFARIN SODIUM) 2.5 Mg Tablet, 2.5 MG PO QDAY@13, #30 TAB 0 Refills Two tabs on 09/24 and SAT 09/25, then one tab a day starting on 09/26. Prov:BLAINE WASSERMAN MD 09/24/17 Potassium Chloride (KLOR-CON 10) 10 Meq Tablet.er, 10 MEQ PO BIDBS, #60 TAB 0 Refills Prov:BLAINE WASSERMAN MD 09/24/17 Lisinopril (LISINOPRIL) 10 Mg Tablet, 10 MG PO QDAY, #30 TAB 1 Refill Prov:BLAINE WASSERMAN MD 09/24/17 Carvedilol (CARVEDILOL) 3.125 Mg Tab, 3.125 MG PO BID, #60 TAB 1 Refill Prov:BLAINE WASSERMAN MD 09/24/17 Levothyroxine Sodium (LEVOTHYROXINE SODIUM) 50 Mcg Tablet, 50 MCG PO QDAY, #30 TAB 1 Refill Prov:BLAINE WASSERMAN MD 09/24/17 Reported Medications Pravastatin Sodium (PRAVACHOL) 20 Mg Tablet, 40 MG PO QDAY, TAB 09/21/17 Lisinopril (LISINOPRIL) 40 Mg Tablet, 40 MG PO QDAY, TAB 09/21/17 Glipizide (GLIPIZIDE) 10 Mg Tablet, 10 MG PO BIDAC 09/21/17 Allopurinol (ZYLOPRIM) 300 Mg Tablet, 600 MG PO QDAY, TAB 09/21/17 Furosemide (LASIX) 20 Mg Tablet, 1 TAB PO QDAY, TAB 09/21/17 Metformin Hcl (METFORMIN HCL) 500 Mg Tablet, 1 TAB PO BID, TAB 09/21/17 Discontinued Reported Medications Lisinopril (LISINOPRIL) 10 Mg Tablet, 10 MG PO QDAY, TAB 09/21/17 Follow up Referrals: Cardiology @ [facility] with [facility] with Rachana Muir Diet: Diabetic, No Added Salt (MILA) Activity: As Tolerated, No Exertion Special Instructions: Follow up with Rachana ISAAC in enxt 5-10 days. [facility] [place] [facility] [place] [facility] [place] MON 09/27/17 with results to Rachana ISAAC. Follow up with Dr. Daniel Lai (cardiology) on Wed10/01/17 at 3:00PM in [address] Copies to: RACHANA MUIR; DANIEL ALI MD Venous Thromboembolism Antithrombotics Is Pt On Any Antithrombotics?: Yes (Lovenox.) BLAINE WASSERMAN MD Sep 24, 2017 11:11
== END 2017-09-24 13:00 | disposition home or self-care (01) | DRG 291 ==
LOC: CANBEDREQ 12:39 → ER 12:47 → MED 14:36
PROVIDERS: ADMIT Internal Medicine; ATTEND Internal Medicine
DX: I13.0 Hypertensive heart and chronic kidney disease with heart failure and stage 1 through stage 4 chronic kidney disease, or unspecified chronic kidney disease (principal); I50.23 Acute on chronic systolic (congestive) heart failure; I82.413 Acute embolism and thrombosis of femoral vein, bilateral; I82.433 Acute embolism and thrombosis of popliteal vein, bilateral; I82.493 Acute embolism and thrombosis of other specified deep vein of lower extremity, bilateral; I82.441 Acute embolism and thrombosis of right tibial vein; E11.22 Type 2 diabetes mellitus with diabetic chronic kidney disease; N18.3 Chronic kidney disease, stage 3 (moderate); E03.9 Hypothyroidism, unspecified; E78.5 Hyperlipidemia, unspecified; M1A.00X0 Idiopathic chronic gout, unspecified site, without tophus (tophi); E87.6 Hypokalemia; K52.9 Noninfective gastroenteritis and colitis, unspecified; N26.1 Atrophy of kidney (terminal); I34.0 Nonrheumatic mitral (valve) insufficiency; Z88.8 Allergy status to other drugs, medicaments and biological substances; Z79.84 Long term (current) use of oral hypoglycemic drugs; Z87.891 Personal history of nicotine dependence
CPT/HCPCS: 36415; 36416; 71045; 71046; 82040; 82247; 82310; 82374; 82435; 82565; 82947; 82948; 83880; 84075; 84132; 84155; 84295; 84443; 84450; 84460; 84484; 84520; 85025; 85379; 85610; 93005; 93970; 96374; 97161; 97165; 99284; C8929; J1650; J1940; J3480; J7050; Q9957

== ENCOUNTER 2017-09-22 13:40 | Outpatient (RCR) | payer MEDICARE ==
[~2017-09-22 13:40] MED LIST: ALLO-119 PO; FURO20TA19 PO; GLIP-154 PO; LEVO50TA86 PO; LISI-362 PO; LISI-374 PO; METF-411 PO; OXYC-869 PO; PRAV20TA65 PO
[2017-09-24] MEDS ORDERED: LEVO50TA86 PO (10:53)
[2017-09-24] MEDS ORDERED: POTA-23 PO (10:53)
[2017-09-24] MEDS ORDERED: LISI-362 PO (10:53)
[2017-09-24] MEDS ORDERED: ENOX60DI10 SQ (10:53)
[2017-09-24] MEDS ORDERED: WARF2.5T11 PO (10:53)
[2017-09-24] MEDS ORDERED: CAR3.125 PO (10:53)
--- NOTE | 2017-09-27 11:53 | Transitional Care Management ---
Assessment Visit Type: Telephone Visit Spoke with: Liliane Cardiac: WNL Except Cardiac Comment: 09/27 Edema is unchanged since discharge. Respiratory: WNL Except Respiratory Comment: 09/27 Having trouble sleeping because she has to be propped up so high, in order to breath. GI: Nutrition: WNL Wt Gain/Loss: WNL Except Weight Comment: 09/27 She has not weighed since discharge. I reviewed the importance of daily weights, and the red and yellow flags, low Na diet and fluid restriction. Constipation?: No : WNL Comment: 09/27 Frequency caused by lasix. Musculoskeletal, Exercise: WNL Mobility/Falls: WNL Integumentary: WNL Integumentary Comment: 09/27 I encouraged her to watch her legs for skin issues. Feeling of Well Being: WNL Socialization: WN Socialization Comment: 09/27 Son, Jesusita is staying with her. Pain/Management: WNL Scheduled Follow-Up with [facility]: Yes (09/27 Appt with Brigitte Christy tomorrow.) Following Discharge Instructio: Yes TCM Discharge Criteria Medication Knowledge: 09/27 Reviewed discharge medications, Lovenox last dose is tomorrow. She has started using a pill city planner, and will not stop taking any medications without talking to her PCP. Red/Yellow Flags: 09/27 CHF reviewed. Transitional Care Comment: 09/22 Very pleasant, receptive asking lots of questions and taking a lot. States she stopped taking some pills recently due to waiting on labs; will not do that again. States she does BP about once a week and her BS daily and writes it on her calendar; suggest she write daily wt there also. 09/27 Edema is unchanged, we reviewed need for daily weights, low Na diet, fluid restrictions, CHF red and yellow flags, discharge medications. She has appointments tomorrow, but i will call after 1200 and inquire about a home visit. Copies to: BRIGITTE CHRISTY MICHAEL K Sep 27, 2017 11:53
--- NOTE | 2017-10-05 15:53 | Transitional Care Management ---
Assessment Visit Type: Telephone Visit Spoke with: Liliane Cardiac: WNL Except Cardiac Comment: 09/27 Edema is unchanged since discharge. 10/05 states edema is much better; she is able to wear her shoes now. Denies increased SOB or cough, taking lasix q day Respiratory: WNL Except Respiratory Comment: 09/27 Having trouble sleeping because she has to be propped up so high, in order to breath. 10/05 Able to sleep in her own bed without edema and SOB. GI: Nutrition: WNL GI Comment: 10/05 enc to avoid leafy greens Wt Gain/Loss: WNL Except Weight Comment: 09/27 She has not weighed since discharge. I reviewed the importance of daily weights, and the red and yellow flags, low Na diet and fluid restriction. 10/05 states is loosing wt and wt q day. doesn't always write the numbers down. When I asked what she'd do if she gained 2# overnight she stated "Call you". Enc her to call Dayana Lucas to avoid having to come to hospital. Constipation?: No : WNL Comment: 09/27 Frequency caused by lasix. Musculoskeletal, Exercise: WNL Mobility/Falls: WNL Integumentary: WNL Integumentary Comment: 09/27 I encouraged her to watch her legs for skin issues. 10/05 states no bleeding or new bruising and that venipuncture sites were healing Feeling of Well Being: WNL Socialization: WNL Socialization Comment: 09/27 Son, Jesusita is staying with her. 10/05 Jesusita is gone but Matt is there. States friend went to last appt with her Pain/Management: WNL Scheduled Follow-Up with Provi: Yes (09/27 Appt with Brigitte Muir tomorrow.) Community Resources/C: 10/05 had INR yesterday (2.8) due 10/08. Saw Juli 10/01 and again 10/04. To vp director of creative strategy to consider a "clip" on 10/19. To nephrology on 10/13 and/or 11/05 (she is unclear but will verify) Needed or Pending Tests: Yes (next INR 10/08) Following Discharge Instructio: Yes TCM Discharge Criteria Medication Knowledge: 09/27 Reviewed discharge medications, Lovenox last dose is tomorrow. She has started using a pill technical planner, and will not stop taking any medications without talking to her PCP. 10/05 states no change to coumadin daily dose or new bp meds from hosptal. Does bp's rarely. Cant do BS as she doesn't have a working monitor. Reminded her metformin was dc in hospital and suggested she ask her son or pharmacist to help her fix this newmeter or obtain a new one. Red/Yellow Flags: 09/27 CHF reviewed. Transitional Care Comment: 09/22 Very pleasant, receptive asking lots of questions and taking a lot. States she stopped taking some pills recently due to waiting on labs; will not do that again. States she does BP about once a week and her BS daily and writes it on her calendar; suggest she write daily wt there also. 09/27 Edema is unchanged, we reviewed need for daily weights, low Na diet, fluid restrictions, CHF red and yellow flags, discharge medications. She has appointments tomorrow, but i will call after 1200 and inquire about a home visit. 10/05 INR per orders, f/u with cardio and nephrology. Pleased edema resolved. Review s/s to report early to PCP. Suggest she have someone go to appointments with her as she is little forgetful especially if considering procedure on heart "to make it better". Frequently tired and naps prn but doing better. KAL GABRIEL Oct 05, 2017 15:53
--- NOTE | 2017-10-11 13:41 | Transitional Care Management ---
Assessment Visit Type: Telephone Visit (10/11 Liliane) Cardiac: WNL Except Cardiac Comment: 09/27 Edema is unchanged since discharge. 10/05 states edema is much better; she is able to wear her shoes now. Denies increased SOB or cough, taking lasix q day 10/11 edema about same- wering shoes. Puts legs up when estion-does have some sweelling towards evening. C/o feeeling dizzing in the mornings after she takes her lasix and lisenipril- enc her to take lisinepril at HS. Tke BP when feeling dizzy-has no BP cuff. She was told on Wednesday by Rachana to increase her coumadin but hasn't done so. Enc her to start tht this afternoon. States she is to have another blood draw in AM. I suggested she call Rachana and inquire about waiting a couple more days since she had done so at this time and also about being dizzy. Respiratory: WNL Except Respiratory Comment: 09/27 Having trouble sleeping because she has to be propped up so high, in order to breath. 10/05 Able to sleep in her own bed without edema and SOB. 10/12 continues to sleep in bed without any SOB GI: Nutrition: WNL GI Comment: 10/05 enc to avoid leafy greens 10/11 BS are doing ok-was 117 this AM. Try's to keep on low NA+ diabetic diet. Wt Gain/Loss: WNL Except Weight Comment: 09/27 She has not weighed since discharge. I reviewed the importance of daily weights, and the red and yellow flags, low Na diet and fluid restriction. 10/05 states is loosing wt and wt q day. doesn't always write the numbers down. When I asked what she'd do if she gained 2# overnight she stated "Call you". Enc her to call Dayana Lucas to avoid having to come to hospital. 10/11 "I don't wt qd but my wt has been staying about the same. Enc her to kennedy Boland if it goes up 2 or more lbs. Constipation?: No : WNL Comment: 09/27 Frequency caused by lasix. Musculoskeletal, Exercise: WNL Mobility/Falls: WNL Integumentary: WNL Integumentary Comment: 09/27 I encouraged her to watch her legs for skin issues. 10/05 states no bleeding or new bruising and that venipuncture sites were healing 10/11 Nobruising or bleeding- enc her to monitor and if does let Wntay know as this is one of the side effects of Coumadin Feeling of Well Being: WNL Socialization: WNL Socialization Comment: 09/27 Son, Jesusita is staying with her. 10/05 Jesusita is gone but Matt is there. States friend went to last appt with her Pain/Management: WNL Scheduled Follow-Up with Florenciai: Yes (09/27 Appt with Rachana Chritsy tomorrow.) Community Resources/[facility]: 10/05 had INR yesterday (2.8) due 10/08. Saw Juli 10/01 and again 10/04. To key bed installer to consider a "clip" on 10/19. To nephrology on 10/13 and/or 11/05 (she is unclear but will verify) Needed or Pending Tests: Yes (next INR 10/08) Following Discharge Instructio: Yes TCM Discharge Criteria Medication Knowledge: 09/27 Reviewed discharge medications, Lovenox last dose is tomorrow. She has started using a pill party planner, and will not stop taking any medications without talking to her PCP. 10/05 states no change to coumadin daily dose or new bp meds from hosptal. Does bp's rarely. Cant do BS as she doesn't have a working monitor. Reminded her metformin was dc in hospital and suggested she ask her son or pharmacist to help her fix this newmeter or obtain a new one. 10/11 pretty sure glucometer is working OK at this time. States "I'm not taking metformin" Red/Yellow Flags: 09/27 CHF reviewed. Transitional Care Comment: 09/22 Very pleasant, receptive asking lots of questions and taking a lot. States she stopped taking some pills recently due to waiting on labs; will not do that again. States she does BP about once a week and her BS daily and writes it on her calendar; suggest she write daily wt there also. 09/27 Edema is unchanged, we reviewed need for daily weights, low Na diet, fluid restrictions, CHF red and yellow flags, discharge medications. She has appointments tomorrow, but i will call after 1200 and inquire about a home visit. 10/05 INR per orders, f/u with cardio and nephrology. Pleased edema resolved. Review s/s to report early to PCP. Suggest she have someone go to appointments with her as she is little forgetful especially if considering procedure on heart "to make it better". Frequently tired and naps prn but doing better. 10/11 Went over medications and that she needed to follow what Padma tells her as if she is to have another INR tomorrow it won't be accurate since she didn't take her increased coumadin. Also to inquire about Lisinepril Copies to: RACHANA CHRISTY JOAN Oct 11, 2017 13:41
--- NOTE | 2017-10-22 12:41 | Transitional Care Management ---
Assessment Visit Type: Telephone Visit Spoke with: Liliane Cardiac: WNL Except Cardiac Comment: 09/27 Edema is unchanged since discharge. 10/05 states edema is much better; she is able to wear her shoes now. Denies increased SOB or cough, taking lasix q day 10/11 edema about same- wering shoes. Puts legs up when estion-does have some sweelling towards evening. C/o feeeling dizzing in the mornings after she takes her lasix and lisenipril- enc her to take lisinepril at HS. Tke BP when feeling dizzy-has no BP cuff. She was told on Wednesday by Rachana to increase her coumadin but hasn't done so. Enc her to start tht this afternoon. States she is to have another blood draw in AM. I suggested she call Rachana and inquire about waiting a couple more days since she had done so at this time and also about being dizzy. 10/22 Less edema, saw her passenger car inspector on 10/19 SYDNEY scheduled for 11/04. She still gets dizzy at times. Respiratory: WNL Except Respiratory Comment: 09/27 Having trouble sleeping because she has to be propped up so high, in order to breath. 10/05 Able to sleep in her own bed without edema and SOB. 10/12 continues to sleep in bed without any SOB GI: Nutrition: WNL GI Comment: 10/05 enc to avoid leafy greens 10/11 BS are doing ok-was 117 this AM. Try's to keep on low NA+ diabetic diet. Wt Gain/Loss: WNL Except Weight Comment: 09/27 She has not weighed since discharge. I reviewed the importance of daily weights, and the red and yellow flags, low Na diet and fluid restriction. 10/05 states is loosing wt and wt q day. doesn't always write the numbers down. When I asked what she'd do if she gained 2# overnight she stated "Call you". Enc her to call Dayana Lucas to avoid having to come to hospital. 10/11 "I don't wt qd but my wt has been staying about the same. Enc her to kennedy Boland if it goes up 2 or more lbs. 10/22 Not weighing daily, but states that weights are stable. I reminded the importance of daily weights. Constipation?: No : WNL Comment: 09/27 Frequency caused by lasix. Musculoskeletal, Exercise: WNL Mobility/Falls: WNL Integumentary: WNL Integumentary Comment: 09/27 I encouraged her to watch her legs for skin issues. 10/05 states no bleeding or new bruising and that venipuncture sites were healing 10/11 Nobruising or bleeding- enc her to monitor and if does let Wndy know as this is one of the side effects of Coumadin Feeling of Well Being: WNL Socialization: WNL Socialization Comment: 09/27 Son, Jesusita is staying with her. 10/05 Jesusita is gone but Matt is there. States friend went to last appt with her Pain/Management: WNL Scheduled Follow-Up with Provi: Yes (10/22 Next Neph appt 11/11, renal US to be scheduled, SYDNEY scheduled for 11/04) Community Resources/[facility]: 10/05 had INR yesterday (2.8) due 10/08. Saw [place] 10/01 and again 10/04. To javascript developer to consider a "clip" on 10/19. To nephrology on 10/13 and/or 11/05 (she is unclear but will verify) Needed or Pending Tests: Yes (INR 10/18 was 3.3) Following Discharge Instructio: Yes TCM Discharge Criteria Medication Knowledge: 09/27 Reviewed discharge medications, Lovenox last dose is tomorrow. She has started using a pill marine [employer] task [employer] planners, and will not stop taking any medications without talking to her PCP. 10/05 states no change to coumadin daily dose or new bp meds from hosptal. Does bp's rarely. Cant do BS as she doesn't have a working monitor. Reminded her metformin was dc in hospital and suggested she ask her son or pharmacist to help her fix this newmeter or obtain a new one. 10/11 pretty sure glucometer is working OK at this time. States "I'm not taking metformin" Red/Yellow Flags: 09/27 CHF reviewed. Transitional Care Comment: 09/22 Very pleasant, receptive asking lots of questions and taking a lot. States she stopped taking some pills recently due to waiting on labs; will not do that again. States she does BP about once a week and her BS daily and writes it on her calendar; suggest she write daily wt there also. 09/27 Edema is unchanged, we reviewed need for daily weights, low Na diet, fluid restrictions, CHF red and yellow flags, discharge medications. She has appointments tomorrow, but i will call after 1200 and inquire about a home visit. 10/05 INR per orders, f/u with cardio and nephrology. Pleased edema resolved. Review s/s to report early to PCP. Suggest she have someone go to appointments with her as she is little forgetful especially if considering procedure on heart "to make it better". Frequently tired and naps prn but doing better. 10/11 Went over medications and that she needed to follow what Padma tells her as if she is to have another INR tomorrow it won't be accurate since she didn't take her increased coumadin. Also to inquire about Lisinepril 10/19 Unable to contact 10/21 Unable to contact 10/22 She feels well, less edema, better activity tolerace. Is taking 2 coumadin, as instructed by Jessica Christy, though she does not know how may milligrams. F/U with Neph and Cardo, renal US to be scheduled, and SYDNEY scheduled for 11/04 Copies to: RACHANA CHRISTY MICHAEL K Oct 22, 2017 12:41
--- NOTE | 2017-10-29 12:46 | Transitional Care Management ---
Assessment Visit Type: Telephone Visit Spoke with: Maribel Cardiac: WNL Except Cardiac Comment: 09/27 Edema is unchanged since discharge. 10/05 states edema is much better; she is able to wear her shoes now. Denies increased SOB or cough, taking lasix q day 10/11 edema about same- wering shoes. Puts legs up when estion-does have some sweelling towards evening. C/o feeeling dizzing in the mornings after she takes her lasix and lisenipril- enc her to take lisinepril at HS. Tke BP when feeling dizzy-has no BP cuff. She was told on Wednesday by Brigitte to increase her coumadin but hasn't done so. Enc her to start tht this afternoon. States she is to have another blood draw in AM. I suggested she call Brigitte and inquire about waiting a couple more days since she had done so at this time and also about being dizzy. 10/22 Less edema, saw her certified cytotechnologist on 10/19 SYDNEY scheduled for 11/04. She still gets dizzy at times. 10/29 No cough, SOB. Edema, slight, by end of a day but is happy she can wear shoes. Enc use of support hose and to elevate. Saw cardio and is scheduled for SYDNEY and "stent in her arm" on 11/04 in [facility]. Respiratory: WNL Except Respiratory Comment: 09/27 Having trouble sleeping because she has to be propped up so high, in order to breath. 10/05 Able to sleep in her own bed without edema and SOB. 10/12 continues to sleep in bed without any SOB 10/29 denies sob but is not doing much activity GI: Nutrition: WNL GI Comment: 10/05 enc to avoid leafy greens 10/11 BS are doing ok-was 117 this AM. Try's to keep on low NA+ diabetic diet. 10/29 Not on DM meds. BS 106, 107, 110. Wt Gain/Loss: WNL Except Weight Comment: 09/27 She has not weighed since discharge. I reviewed the importance of daily weights, and the red and yellow flags, low Na diet and fluid restriction. 10/05 states is loosing wt and wt q day. doesn't always write the numbers down. When I asked what she'd do if she gained 2# overnight she stated "Call you". Enc her to call Dayanaarlin Lucas to avoid having to come to hospital. 10/11 "I don't wt qd but my wt has been staying about the same. Enc her to kennedy Boland if it goes up 2 or more lbs. 10/22 Not weighing daily, but states that weights are stable. I reminded the importance of daily weights. 10/29 wt remains at 135 and wt almost every day Constipation?: No : WNL Comment: 09/27 Frequency caused by lasix. 10/29 Saw merchandise support associate and she took her off her bp med and potassium. has US of kidney scheduled at [facility] and sees her again on 11/11 Musculoskeletal, Exercise: WNL Musculoskeletal, Excercise Com: 10/29 states she hasn't been doing much. [facility]s. enc to increase act daily. says she is going to use 2 soup cans to lift weights with at home Mobility/Falls: WNL Integumentary: WNL Integumentary Comment: 09/27 I encouraged her to watch her legs for skin issues. 10/05 states no bleeding or new bruising and that venipuncture sites were healing 10/11 Nobruising or bleeding- enc her to monitor and if does let Wndy know as this is one of the side effects of Coumadin 10/29 says last INR just over 3. takes 2 pills a day. is gong to hold it for 3 days before procedure with cardio (as instructed) Feeling of Well Being: WNL Socialization: WNL Socialization Comment: 09/27 Son, Jesusita is staying with her. 10/05 Jesusita is gone but Matt is there. States friend went to last appt with her 10/29 friend is taking her to [facility] next week but, son from [place] will meet her there Pain/Management: WNL Scheduled Follow-Up with Provi: Yes (10/22 Next Neph appt 11/11, renal US to be scheduled, SYDNEY scheduled for 11/04) Community Resources/[facility]: 10/05 had INR yesterday (2.8) due 10/08. Saw [place] 10/01 and again 10/04. To mail carriers supervisor to consider a "clip" on 10/19. To nephrology on 10/13 and/or 11/05 (she is unclear but will verify) 10/29 reports f/u with Brigitte, neph and cardio Needed or Pending Tests: Yes (INR 10/18 was 3.3) Following Discharge Instructio: Yes TCM Discharge Criteria Medication Knowledge: 09/27 Reviewed discharge medications, Lovenox last dose is tomorrow. She has started using a pill sr. merchandise planner, and will not stop taking any medications without talking to her PCP. 10/05 states no change to coumadin daily dose or new bp meds from hosptal. Does bp's rarely. Cant do BS as she doesn't have a working monitor. Reminded her metformin was dc in hospital and suggested she ask her son or pharmacist to help her fix this newmeter or obtain a new one. 10/11 pretty sure glucometer is working OK at this time. States "I'm not taking metformin" 10/29 review home meds: new spironolactone q day, lasix is bid, thyroid, coumadin, carvedilol bid. States she asked Brigitte if she should be on her statin and now she has a new RX for that. Enc her to take meds to MD appts to keep everyone on same page. States she doesn't use a pill sr. merchandise planner but, opens each bottle daily for dosing and follow direction on label Red/Yellow Flags: 09/27 CHF reviewed. Transitional Care Comment: 09/22 Very pleasant, receptive asking lots of questions and taking a lot. States she stopped taking some pills recently due to waiting on labs; will not do that again. States she does BP about once a week and her BS daily and writes it on her calendar; suggest she write daily wt there also. 09/27 Edema is unchanged, we reviewed need for daily weights, low Na diet, fluid restrictions, CHF red and yellow flags, discharge medications. She has appointments tomorrow, but i will call after 1200 and inquire about a home visit. 10/05 INR per orders, f/u with cardio and nephrology. Pleased edema resolved. Review s/s to report early to PCP. Suggest she have someone go to appointments with her as she is little forgetful especially if considering procedure on heart "to make it better". Frequently tired and naps prn but doing better. 10/11 Went over medications and that she needed to follow what Padma tells her as if she is to have another INR tomorrow it won't be accurate since she didn't take her increased coumadin. Also to inquire about Lisinepril 10/19 Unable to contact 10/21 Unable to contact 10/22 She feels well, less edema, better activity tolerace. Is taking 2 coumadin, as instructed by Jessica Muir, though she does not know how may milligrams. F/U with Neph and Cardo, renal US to be scheduled, and SYDNEY scheduled for 11/04 10/29 Reports new med and changes in previous meds. Enc her to keep list or take pills to each provider to keep current for continuity of care as she reported SBP of <100 on 2 occasions. Review sx to monitor and f/u with providers. Enc to cont to monitor labs, BP, BS wt for MD lerma . Said she wonders if she takes too many meds but on review states she needs all of them. KAL GABRIEL Oct 29, 2017 12:46
--- NOTE | 2017-11-08 13:07 | Transitional Care Management ---
Assessment Visit Type: Telephone Visit (11/08 [place]) Cardiac: WNL Except Cardiac Comment: 09/27 Edema is unchanged since discharge. 10/05 states edema is much better; she is able to wear her shoes now. Denies increased SOB or cough, taking lasix q day 10/11 edema about same- wering shoes. Puts legs up when estion-does have some sweelling towards evening. C/o feeeling dizzing in the mornings after she takes her lasix and lisenipril- enc her to take lisinepril at HS. Tke BP when feeling dizzy-has no BP cuff. She was told on Wednesday by Brigitte to increase her coumadin but hasn't done so. Enc her to start tht this afternoon. States she is to have another blood draw in AM. I suggested she call Brigitte and inquire about waiting a couple more days since she had done so at this time and also about being dizzy. 10/22 Less edema, saw her out and out cigar maker hand on 10/19 SYDNEY scheduled for 11/04. She still gets dizzy at times. 10/29 No cough, SOB. Edema, slight, by end of a day but is happy she can wear shoes. Enc use of support hose and to elevate. Saw cardio and is scheduled for SYDNEY and "stent in her arm" on 11/04 in [facility]. Respiratory: WNL Except Respiratory Comment: 09/27 Having trouble sleeping because she has to be propped up so high, in order to breath. 10/05 Able to sleep in her own bed without edema and SOB. 10/12 continues to sleep in bed without any SOB 10/29 denies sob but is not doing much activity 11/08 states SHE FEELS A LITTLE sob and dizzy today. dOES NOT HAVE HOME o2.Suggested since they dicussed in [facility] she might call Brigitte and let her know. GI: Nutrition: WNL GI Comment: 10/05 enc to avoid leafy greens 10/11 BS are doing ok-was 117 this AM. Try's to keep on low NA+ diabetic diet. 10/29 Not on DM meds. BS 106, 107, 110. 11/08 BS staying stable Wt Gain/Loss: WNL Except Weight Comment: 09/27 She has not weighed since discharge. I reviewed the importance of daily weights, and the red and yellow flags, low Na diet and fluid restriction. 10/05 states is loosing wt and wt q day. doesn't always write the numbers down. When I asked what she'd do if she gained 2# overnight she stated "Call you". Enc her to call Dayana Lucas to avoid having to come to hospital. 10/11 "I don't wt qd but my wt has been staying about the same. Enc her to kennedy Boland if it goes up 2 or more lbs. 10/22 Not weighing daily, but states that weights are stable. I reminded the importance of daily weights. 10/29 wt remains at 135 and wt almost every day 11/08 Wt 130 today Constipation?: No : WNL Comment: 09/27 Frequency caused by lasix. 10/29 Saw clinic physician director and she took her off her bp med and potassium. has US of kidney scheduled at [facility] and sees her again on 11/11 Musculoskeletal, Exercise: WNL Musculoskeletal, Excercise Com: 10/29 states she hasn't been doing much. going to [employer] today for meds. enc to increase act daily. says she is going to use 2 soup cans to lift weights with at home 11/08 states "I've been moving around the house bbut feel tired and dizzy today, I'm just going to rest today" Mobility/Falls: WNL Integumentary: WNL Integumentary Comment: 09/27 I encouraged her to watch her legs for skin issues. 10/05 states no bleeding or new bruising and that venipuncture sites were healing 10/11 Nobruising or bleeding- enc her to monitor and if does let Wndy know as this is one of the side effects of Coumadin 10/29 says last INR just over 3. takes 2 pills a day. is gong to hold it for 3 days before procedure with cardio (as instructed) Feeling of Well Being: WNL Socialization: WNL Socialization Comment: 09/27 Son, Jesusita is staying with her. 10/05 Jesusita is gone but Matt is there. States friend went to last appt with her 10/29 friend is taking her to [facility] next week but, son from [place] will meet her there Pain/Management: WNL Scheduled Follow-Up with Provi: Yes (10/22 Next Neph appt 11/11, renal US to be scheduled, SYDNEY scheduled for 11/04) Community Resources/[facility]: 10/05 had INR yesterday (2.8) due 10/08. Saw Juli 10/01 and again 10/04. To shoe reconditioner to consider a "clip" on 10/19. To nephrology on 10/13 and/or 11/05 (she is unclear but will verify) 10/29 reports f/u with Brigitte, neph and cardio Needed or Pending Tests: Yes (INR 10/18 was 3.3) Following Discharge Instructio: Yes TCM Discharge Criteria Medication Knowledge: 09/27 Reviewed discharge medications, Lovenox last dose is tomorrow. She has started using a pill funeral planner, and will not stop taking any medications without talking to her PCP. 10/05 states no change to coumadin daily dose or new bp meds from hosptal. Does bp's rarely. Cant do BS as she doesn't have a working monitor. Reminded her metformin was dc in hospital and suggested she ask her son or pharmacist to help her fix this newmeter or obtain a new one. 10/11 pretty sure glucometer is working OK at this time. States "I'm not taking metformin" 10/29 review home meds: new spironolactone q day, lasix is bid, thyroid, coumadin, carvedilol bid. States she asked Brigitte if she should be on her statin and now she has a new RX for that. Enc her to take meds to MD appts to keep everyone on same page. States she doesn't use a pill funeral planner but, opens each bottle daily for dosing and follow direction on label Red/Yellow Flags: 09/27 CHF reviewed. Transitional Care Comment: -09/22 Very pleasant, receptive asking lots of questions and taking a lot. States she stopped taking some pills recently due to waiting on labs; will not do that again. States she does BP about once a week and her BS daily and writes it on her calendar; suggest she write daily wt there also. 09/27 Edema is unchanged, we reviewed need for daily weights, low Na diet, fluid restrictions, CHF red and yellow flags, discharge medications. She has appointments tomorrow, but i will call after 1200 and inquire about a home visit. 10/05 INR per orders, f/u with cardio and nephrology. Pleased edema resolved. Review s/s to report early to PCP. Suggest she have someone go to appointments with her as she is little forgetful especially if considering procedure on heart "to make it better". Frequently tired and naps prn but doing better. 10/11 Went over medications and that she needed to follow what Padma tells her as if she is to have another INR tomorrow it won't be accurate since she didn't take her increased coumadin. Also to inquire about Lisinepril 10/19 Unable to contact 10/21 Unable to contact 10/22 She feels well, less edema, better activity tolerace. Is taking 2 coumadin, as instructed by Jessica Muir, though she does not know how may milligrams. F/U with Neph and Cardo, renal US to be scheduled, and SYDNEY scheduled for 11/04 10/29 Reports new med and changes in previous meds. Enc her to keep list or take pills to each provider to keep current for continuity of care as she reported SBP of <100 on 2 occasions. Review sx to monitor and f/u with providers. Enc to cont to monitor labs, BP, BS wt for MD lerma . Said she wonders if she takes too many meds but on review states she needs all of them. 11/08 Had stint in [facility] last week. They talked about O2 at home but didn't order any. D/t she feels tired, dizzy and SOB along with not slee[ing well last PM, I suggested she call Brigitte and let her know.She states she bought some ALEXIS hose but has not used them yet. She stated she noted her feet were slightly swollen. I suggested whe put them and put her feet up and rest for awhile today.She stated she would cll Brigitte and then rest. MARYBETH JONES Nov 08, 2017 13:07
--- NOTE | 2017-11-16 11:27 | Transitional Care Management ---
Assessment Visit Type: Telephone Visit Spoke with: Liliane Cardiac: WNL Except Cardiac Comment: 09/27 Edema is unchanged since discharge. 10/05 states edema is much better; she is able to wear her shoes now. Denies increased SOB or cough, taking lasix q day 10/11 edema about same- wering shoes. Puts legs up when estion-does have some sweelling towards evening. C/o feeeling dizzing in the mornings after she takes her lasix and lisenipril- enc her to take lisinepril at HS. Tke BP when feeling dizzy-has no BP cuff. She was told on Wednesday by Rachana to increase her coumadin but hasn't done so. Enc her to start tht this afternoon. States she is to have another blood draw in AM. I suggested she call Rachana and inquire about waiting a couple more days since she had done so at this time and also about being dizzy. 10/22 Less edema, saw her volleyball player on 10/19 SYDNEY scheduled for 11/04. She still gets dizzy at times. 10/29 No cough, SOB. Edema, slight, by end of a day but is happy she can wear shoes. Enc use of support hose and to elevate. Saw cardio and is scheduled for SYDNEY and "stent in her arm" on 11/04 in [facility]. 11/16 Increased edema, Tool Planner stopped her lasix and spironolactone due to her kidneys. Respiratory: WNL Except Respiratory Comment: 09/27 Having trouble sleeping because she has to be propped up so high, in order to breath. 10/05 Able to sleep in her own bed without edema and SOB. 10/12 continues to sleep in bed without any SOB 10/29 denies sob but is not doing much activity 11/08 states SHE FEELS A LITTLE sob and dizzy today. dOES NOT HAVE HOME o2.Suggested since they dicussed in [facility] she might call Rachana and let her know. 11/16 She is on 3L O2 all the time. She feels much better. We discussed O2 saftey in the home. GI: Nutrition: WNL GI Comment: 10/05 enc to avoid leafy greens 10/11 BS are doing ok-was 117 this AM. Try's to keep on low NA+ diabetic diet. 10/29 Not on DM meds. BS 106, 107, 110. 11/08 BS staying stable Wt Gain/Loss: WNL Except Weight Comment: 09/27 She has not weighed since discharge. I reviewed the importance of daily weights, and the red and yellow flags, low Na diet and fluid restriction. 10/05 states is loosing wt and wt q day. doesn't always write the numbers down. When I asked what she'd do if she gained 2# overnight she stated "Call you". Enc her to call Dayana Lucas to avoid having to come to hospital. 10/11 "I don't wt qd but my wt has been staying about the same. Enc her to kennedy Boland if it goes up 2 or more lbs. 10/22 Not weighing daily, but states that weights are stable. I reminded the importance of daily weights. 10/29 wt remains at 135 and wt almost every day 11/08 Wt 130 today 11/16 Not weighing daily, says she is up a few pounds. Constipation?: No : WNL Comment: 09/27 Frequency caused by lasix. 10/29 Saw knockdown man and she took her off her bp med and potassium. has US of kidney scheduled at [facility] and sees her again on 11/11 11/16 She has tried to call her knockdown man today about her increased edema since stopping the lasix and spironolactone. Musculoskeletal, Exercise: LURDES Musculoskeletal, Excercise Com: 10/29 states she hasn't been doing much. going to [facility] today for meds. enc to increase act daily. says she is going to use 2 soup cans to lift weights with at home 11/08 states "I've been moving around the house bbut feel tired and dizzy today, I'm just going to rest today" Mobility/Falls: WNL Integumentary: WNL Integumentary Comment: 09/27 I encouraged her to watch her legs for skin issues. 10/05 states no bleeding or new bruising and that venipuncture sites were healing 10/11 Nobruising or bleeding- enc her to monitor and if does let Wntay know as this is one of the side effects of Coumadin 10/29 says last INR just over 3. takes 2 pills a day. is gong to hold it for 3 days before procedure with cardio (as instructed) Feeling of Well Being: WNL Socialization: WNL Socialization Comment: 09/27 Son, Jesusita is staying with her. 10/05 Jesusita is gone but Matt is there. States friend went to last appt with her 10/29 friend is taking her to [place] next week but, son from [place] will meet her there Pain/Management: WNL Scheduled Follow-Up with Provi: Yes (11/16 Next Neph appt 12/02) Community Resources/[facility]: 10/05 had INR yesterday (2.8) due 10/08. Saw Juli 10/01 and again 10/04. To ring packer to consider a "clip" on 10/19. To nephrology on 10/13 and/or 11/05 (she is unclear but will verify) 10/29 reports f/u with sujatha Briggs and cardio 11/16 her last INR was 7, currently taking 2mg of coumadin as prescribed. Questions for Future PCP Visit: 11/16 need for diuretics? Coumadin follow up. Needed or Pending Tests: Yes (last INRs have been 7-8) Following Discharge Instructio: Yes TCM Discharge Criteria Medication Knowledge: 09/27 Reviewed discharge medications, Lovenox last dose is tomorrow. She has started using a pill case planner, and will not stop taking any medications without talking to her PCP. 10/05 states no change to coumadin daily dose or new bp meds from hosptal. Does bp's rarely. Cant do BS as she doesn't have a working monitor. Reminded her metformin was dc in hospital and suggested she ask her son or pharmacist to help her fix this newmeter or obtain a new one. 10/11 pretty sure glucometer is working OK at this time. States "I'm not taking metformin" 10/29 review home meds: new spironolactone q day, lasix is bid, thyroid, coumadin, carvedilol bid. States she asked Rachana if she should be on her statin and now she has a new RX for that. Enc her to take meds to MD appts to keep everyone on same page. States she doesn't use a pill case planner but, opens each bottle daily for dosing and follow direction on label Red/Yellow Flags: 09/27 CHF reviewed. Transitional Care Comment: -09/22 Very pleasant, receptive asking lots of questions and taking a lot. States she stopped taking some pills recently due to waiting on labs; will not do that again. States she does BP about once a week and her BS daily and writes it on her calendar; suggest she write daily wt there also. 09/27 Edema is unchanged, we reviewed need for daily weights, low Na diet, fluid restrictions, CHF red and yellow flags, discharge medications. She has appointments tomorrow, but i will call after 1200 and inquire about a home visit. 10/05 INR per orders, f/u with cardio and nephrology. Pleased edema resolved. Review s/s to report early to PCP. Suggest she have someone go to appointments with her as she is little forgetful especially if considering procedure on heart "to make it better". Frequently tired and naps prn but doing better. 10/11 Went over medications and that she needed to follow what Padma tells her as if she is to have another INR tomorrow it won't be accurate since she didn't take her increased coumadin. Also to inquire about Lisinepril 10/19 Unable to contact 10/21 Unable to contact 10/22 She feels well, less edema, better activity tolerace. Is taking 2 coumadin, as instructed by Jessica Muir, though she does not know how may milligrams. F/U with Neph and Cardo, renal US to be scheduled, and SYDNEY scheduled for 11/04 10/29 Reports new med and changes in previous meds. Enc her to keep list or take pills to each provider to keep current for continuity of care as she reported SBP of <100 on 2 occasions. Review sx to monitor and f/u with providers. Enc to cont to monitor labs, BP, BS wt for MD lerma . Said she wonders if she takes too many meds but on review states she needs all of them. 11/08 Had stint in [facility] last week. They talked about O2 at home but didn't order any. D/t she feels tired, dizzy and SOB along with not slee[ing well last PM, I suggested she call Rachana and let her know.She states she bought some ALEXIS hose but has not used them yet. She stated she noted her feet were slightly swollen. I suggested whe put them and put her feet up and rest for awhile today.She stated she would cll Rachana and then rest. 11/16 She is on 3L O2 and feels much better, no dizziness or SOB. Called her knockdown man office today about her increased edema and weight since lasix and spironolactone have been stopped. Rachana is following her INR's and adjusting warfarin. Copies to: RACHANA MUIR MICHAEL K November 16, 2017 11:27
--- NOTE | 2017-12-02 13:10 | Transitional Care Management ---
Assessment Cardiac: WNL Except Cardiac Comment: 09/27 Edema is unchanged since discharge. 10/05 states edema is much better; she is able to wear her shoes now. Denies increased SOB or cough, taking lasix q day 10/11 edema about same- wering shoes. Puts legs up when estion-does have some sweelling towards evening. C/o feeeling dizzing in the mornings after she takes her lasix and lisenipril- enc her to take lisinepril at HS. Tke BP when feeling dizzy-has no BP cuff. She was told on Wednesday by Brigitte to increase her coumadin but hasn't done so. Enc her to start tht this afternoon. States she is to have another blood draw in AM. I suggested she call Brigitte and inquire about waiting a couple more days since she had done so at this time and also about being dizzy. 10/22 Less edema, saw her employee relations assistant on 10/19 SYDNEY scheduled for 11/04. She still gets dizzy at times. 10/29 No cough, SOB. Edema, slight, by end of a day but is happy she can wear shoes. Enc use of support hose and to elevate. Saw cardio and is scheduled for SYDNEY and "stent in her arm" on 11/04 in [facility]. 11/16 Increased edema, Warehouse Associate stopped her lasix and spironolactone due to her kidneys. Respiratory: WNL Except Respiratory Comment: 09/27 Having trouble sleeping because she has to be propped up so high, in order to breath. 10/05 Able to sleep in her own bed without edema and SOB. 10/12 continues to sleep in bed without any SOB 10/29 denies sob but is not doing much activity 11/08 states SHE FEELS A LITTLE sob and dizzy today. dOES NOT HAVE HOME o2.Suggested since they dicussed in [facility] she might call Brigitte and let her know. 11/16 She is on 3L O2 all the time. She feels much better. We discussed O2 saftey in the home. GI: Nutrition: WNL GI Comment: 10/05 enc to avoid leafy greens 10/11 BS are doing ok-was 117 this AM. Try's to keep on low NA+ diabetic diet. 10/29 Not on DM meds. BS 106, 107, 110. 11/08 BS staying stable Wt Gain/Loss: WNL Except Weight Comment: 09/27 She has not weighed since discharge. I reviewed the importance of daily weights, and the red and yellow flags, low Na diet and fluid restriction. 10/05 states is loosing wt and wt q day. doesn't always write the numbers down. When I asked what she'd do if she gained 2# overnight she stated "Call you". Enc her to call Dayana Lucas to avoid having to come to hospital. 10/11 "I don't wt qd but my wt has been staying about the same. Enc her to kennedy Boland if it goes up 2 or more lbs. 10/22 Not weighing daily, but states that weights are stable. I reminded the importance of daily weights. 10/29 wt remains at 135 and wt almost every day 11/08 Wt 130 today 11/16 Not weighing daily, says she is up a few pounds. Constipation?: No : WNL Comment: 09/27 Frequency caused by lasix. 10/29 Saw catering driver and she took her off her bp med and potassium. has US of kidney scheduled at [facility] and sees her again on 11/11 11/16 She has tried to call her catering driver today about her increased edema since stopping the lasix and spironolactone. Musculoskeletal, Exercise: LURDES Musculoskeletal, Excercise Com: 10/29 states she hasn't been doing much. going to [employer] today for meds. enc to increase act daily. says she is going to use 2 soup cans to lift weights with at home 11/08 states "I've been moving around the house bbut feel tired and dizzy today, I'm just going to rest today" Mobility/Falls: WNL Integumentary: WNL Integumentary Comment: 09/27 I encouraged her to watch her legs for skin issues. 10/05 states no bleeding or new bruising and that venipuncture sites were healing 10/11 Nobruising or bleeding- enc her to monitor and if does let Wntay know as this is one of the side effects of Coumadin 10/29 says last INR just over 3. takes 2 pills a day. is gong to hold it for 3 days before procedure with cardio (as instructed) Feeling of Well Being: WNL Socialization: WNL Socialization Comment: 09/27 Son, Jesusita is staying with her. 10/05 Jesusita is gone but Matt is there. States friend went to last appt with her 10/29 friend is taking her to [place] next week but, son from [place] will meet her there Pain/Management: WNL Scheduled Follow-Up with Provi: Yes (11/16 Next Neph appt 12/02) Community Resources/[facility]: 10/05 had INR yesterday (2.8) due 10/08. Saw Juli 10/01 and again 10/04. To service inspector to consider a "clip" on 10/19. To nephrology on 10/13 and/or 11/05 (she is unclear but will verify) 10/29 reports f/u with Brigitte neph and cardio 11/16 her last INR was 7, currently taking 2mg of coumadin as prescribed. Questions for Future PCP Visit: 11/16 need for diuretics? Coumadin follow up. Needed or Pending Tests: Yes (last INRs have been 7-8) Following Discharge Instructio: Yes TCM Discharge Criteria Medication Knowledge: 09/27 Reviewed discharge medications, Lovenox last dose is tomorrow. She has started using a pill digital sales planner, and will not stop taking any medications without talking to her PCP. 10/05 states no change to coumadin daily dose or new bp meds from hosptal. Does bp's rarely. Cant do BS as she doesn't have a working monitor. Reminded her metformin was dc in hospital and suggested she ask her son or pharmacist to help her fix this newmeter or obtain a new one. 10/11 pretty sure glucometer is working OK at this time. States "I'm not taking metformin" 10/29 review home meds: new spironolactone q day, lasix is bid, thyroid, coumadin, carvedilol bid. States she asked Brigitte if she should be on her statin and now she has a new RX for that. Enc her to take meds to MD appts to keep everyone on same page. States she doesn't use a pill digital sales planner but, opens each bottle daily for dosing and follow direction on label Red/Yellow Flags: 09/27 CHF reviewed. Transitional Care Comment: -09/22 Very pleasant, receptive asking lots of questions and taking a lot. States she stopped taking some pills recently due to waiting on labs; will not do that again. States she does BP about once a week and her BS daily and writes it on her calendar; suggest she write daily wt there also. 09/27 Edema is unchanged, we reviewed need for daily weights, low Na diet, fluid restrictions, CHF red and yellow flags, discharge medications. She has appointments tomorrow, but i will call after 1200 and inquire about a home visit. 10/05 INR per orders, f/u with cardio and nephrology. Pleased edema resolved. Review s/s to report early to PCP. Suggest she have someone go to appointments with her as she is little forgetful especially if considering procedure on heart "to make it better". Frequently tired and naps prn but doing better. 10/11 Went over medications and that she needed to follow what Padma tells her as if she is to have another INR tomorrow it won't be accurate since she didn't take her increased coumadin. Also to inquire about Lisinepril 10/19 Unable to contact 10/21 Unable to contact 10/22 She feels well, less edema, better activity tolerace. Is taking 2 coumadin, as instructed by Jessica Muir, though she does not know how may milligrams. F/U with Neph and Concepciono, renal US to be scheduled, and SYDNEY scheduled for 11/04 10/29 Reports new med and changes in previous meds. Enc her to keep list or take pills to each provider to keep current for continuity of care as she reported SBP of <100 on 2 occasions. Review sx to monitor and f/u with providers. Enc to cont to monitor labs, BP, BS wt for MD lerma . Said she wonders if she takes too many meds but on review states she needs all of them. 11/08 Had stint in [facility] last week. They talked about O2 at home but didn't order any. D/t she feels tired, dizzy and SOB along with not slee[ing well last PM, I suggested she call Brigitte and let her know.She states she bought some ALEXIS hose but has not used them yet. She stated she noted her feet were slightly swollen. I suggested whe put them and put her feet up and rest for awhile today.She stated she would cll Brigitte and then rest. 11/16 She is on 3L O2 and feels much better, no dizziness or SOB. Called her catering driver office today about her increased edema and weight since lasix and spironolactone have been stopped. Brigitte is following her INR's and adjusting warfarin. 11/23 unable to contact 12/02 unable to contact-left message! MARYBETH JONES December 02, 2017 13:10
--- NOTE | 2017-12-04 11:34 | Transitional Care Management ---
Assessment Visit Type: Telephone Visit (12/04 Maribel) Cardiac: WNL Except Cardiac Comment: 09/27 Edema is unchanged since discharge. 10/05 states edema is much better; she is able to wear her shoes now. Denies increased SOB or cough, taking lasix q day 10/11 edema about same- wering shoes. Puts legs up when estion-does have some sweelling towards evening. C/o feeeling dizzing in the mornings after she takes her lasix and lisenipril- enc her to take lisinepril at HS. Tke BP when feeling dizzy-has no BP cuff. She was told on Wednesday by Rachana to increase her coumadin but hasn't done so. Enc her to start tht this afternoon. States she is to have another blood draw in AM. I suggested she call Rachana and inquire about waiting a couple more days since she had done so at this time and also about being dizzy. 10/22 Less edema, saw her grocery department manager on 10/19 SYDNEY scheduled for 11/04. She still gets dizzy at times. 10/29 No cough, SOB. Edema, slight, by end of a day but is happy she can wear shoes. Enc use of support hose and to elevate. Saw cardio and is scheduled for SYDNEY and "stent in her arm" on 11/04 in [facility]. 11/16 Increased edema, Keyboard Specialist stopped her lasix and spironolactone due to her kidneys. 12/04 Had appt pau kidney yesterday. He doesn't want me on any diuretic but my swelling gets really bad if I'm not on some. Rachana changed to a new med "don't know what it is at this time. "I try to keep my feet up when sitting./ Respiratory: WNL Except Respiratory Comment: 09/27 Having trouble sleeping because she has to be propped up so high, in order to breath. 10/05 Able to sleep in her own bed without edema and SOB. 10/12 continues to sleep in bed without any SOB 10/29 denies sob but is not doing much activity 11/08 states SHE FEELS A LITTLE sob and dizzy today. dOES NOT HAVE HOME o2.Suggested since they dicussed in [facility] she might call Rachana and let her know. 11/16 She is on 3L O2 all the time. She feels much better. We discussed O2 saftey in the home. 12/04 Continues on O2 01/02 but has decreased to 2 L. It does help me feel better" GI: Nutrition: WNL GI Comment: 10/05 enc to avoid leafy greens 10/11 BS are doing ok-was 117 this AM. Try's to keep on low NA+ diabetic diet. 10/29 Not on DM meds. BS 106, 107, 110. 11/08 BS staying stable 12/04 Have not been on any diabetic meds. Kidney Dr stopped my metformin. Bs was 120 yesterday. Continue to be on Diabetic low Na+, kidney diet laughs "It doesn't leave much" 05 Gain/Loss: WNL Except Weight Comment: 09/27 She has not weighed since discharge. I reviewed the importance of daily weights, and the red and yellow flags, low Na diet and fluid restriction. 10/05 states is loosing wt and wt q day. doesn't always write the numbers down. When I asked what she'd do if she gained 2# overnight she stated "Call you". Enc her to call Dayana Lucas to avoid having to come to hospital. 10/11 "I don't wt qd but my wt has been staying about the same. Enc her to kennedy Boland if it goes up 2 or more lbs. 10/22 Not weighing daily, but states that weights are stable. I reminded the importance of daily weights. 10/29 wt remains at 135 and wt almost every day 11/08 Wt 130 today 11/16 Not weighing daily, says she is up a few pounds. 12/04 Weits about qod but stays around 130. Discussed what to do if gains 3-5 lb in a couple days and she responed "Call the Dr" Constipation?: No : WNL Comment: 09/27 Frequency caused by lasix. 10/29 Saw pattern drafter and she took her off her bp med and potassium. has US of kidney scheduled at [facility] and sees her again on 11/11 11/16 She has tried to call her pattern drafter today about her increased edema since stopping the lasix and spironolactone. 12/04 saw kidney yesterday and he thought she was doing pretty good. Liliane concerned abput edema. Will TT Dr macias this week Musculoskeletal, Exercise: WNL Musculoskeletal, Excercise Com: 10/29 states she hasn't been doing much. going to [facility] today for meds. enc to increase act daily. says she is going to use 2 soup cans to lift weights with at home 11/08 states "I've been moving around the house bbut feel tired and dizzy today, I'm just going to rest today" 12/04 went to [facility] yesterday and feel pretty tired today-I do move around the house and do pretty good" Mobility/Falls: WNL Integumentary: WNL Integumentary Comment: 09/27 I encouraged her to watch her legs for skin issues. 10/05 states no bleeding or new bruising and that venipuncture sites were healing 10/11 Nobruising or bleeding- enc her to monitor and if does let Wndy know as this is one of the side effects of Coumadin 10/29 says last INR just over 3. takes 2 pills a day. is gong to hold it for 3 days before procedure with cardio (as instructed) Feeling of Well Being: WNL Socialization: WN Socialization Comment: 09/27 Son, Jesusita is staying with her. 10/05 Jesusita is gone but Matt is there. States friend went to last appt with her 10/29 friend is taking her to [facility] next week but, son from [place] will meet her there Pain/Management: WNL Scheduled Follow-Up with Provi: Yes (11/16 Next Neph appt 12/02) Community Resources/[facility]: 10/05 had INR yesterday (2.8) due 10/08. Saw [place] 10/01 and again 10/04. To needle control cheniller to consider a "clip" on 10/19. To nephrology on 10/13 and/or 11/05 (she is unclear but will verify) 10/29 reports f/u with Rachana neph and cardio 11/16 her last INR was 7, currently taking 2mg of coumadin as prescribed. Questions for Future PCP Visit: 11/16 need for diuretics? Coumadin follow up. Needed or Pending Tests: Yes (last INRs have been 7-8) Following Discharge Instructio: Yes TCM Discharge Criteria Medication Knowledge: 09/27 Reviewed discharge medications, Lovenox last dose is tomorrow. She has started using a pill meeting planner, and will not stop taking any medications without talking to her PCP. 10/05 states no change to coumadin daily dose or new bp meds from hosptal. Does bp's rarely. Cant do BS as she doesn't have a working monitor. Reminded her metformin was dc in hospital and suggested she ask her son or pharmacist to help her fix this newmeter or obtain a new one. 10/11 pretty sure glucometer is working OK at this time. States "I'm not taking metformin" 10/29 review home meds: new spironolactone q day, lasix is bid, thyroid, coumadin, carvedilol bid. States she asked Rachana if she should be on her statin and now she has a new RX for that. Enc her to take meds to MD appts to keep everyone on same page. States she doesn't use a pill meeting planner but, opens each bottle daily for dosing and follow direction on label Red/Yellow Flags: 09/27 CHF reviewed. Transitional Care Comment: -09/22 Very pleasant, receptive asking lots of questions and taking a lot. States she stopped taking some pills recently due to waiting on labs; will not do that again. States she does BP about once a week and her BS daily and writes it on her calendar; suggest she write daily wt there also. 09/27 Edema is unchanged, we reviewed need for daily weights, low Na diet, fluid restrictions, CHF red and yellow flags, discharge medications. She has appointments tomorrow, but i will call after 1200 and inquire about a home visit. 10/05 INR per orders, f/u with cardio and nephrology. Pleased edema resolved. Review s/s to report early to PCP. Suggest she have someone go to appointments with her as she is little forgetful especially if considering procedure on heart "to make it better". Frequently tired and naps prn but doing better. 10/11 Went over medications and that she needed to follow what Padma tells her as if she is to have another INR tomorrow it won't be accurate since she didn't take her increased coumadin. Also to inquire about Lisinepril 10/19 Unable to contact 10/21 Unable to contact 10/22 She feels well, less edema, better activity tolerace. Is taking 2 coumadin, as instructed by Jessica Muir, though she does not know how may milligrams. F/U with Neph and Marice, renal US to be scheduled, and SYDNEY scheduled for 11/04 10/29 Reports new med and changes in previous meds. Enc her to keep list or take pills to each provider to keep current for continuity of care as she reported SBP of <100 on 2 occasions. Review sx to monitor and f/u with providers. Enc to cont to monitor labs, BP, BS wt for MD lerma . Said she wonders if she takes too many meds but on review states she needs all of them. 11/08 Had stint in [facility] last week. They talked about O2 at home but didn't order any. D/t she feels tired, dizzy and SOB along with not slee[ing well last PM, I suggested she call Rachana and let her know.She states she bought some ALEXIS hose but has not used them yet. She stated she noted her feet were slightly swollen. I suggested whe put them and put her feet up and rest for awhile today.She stated she would cll Rachana and then rest. 11/16 She is on 3L O2 and feels much better, no dizziness or SOB. Called her pattern drafter office today about her increased edema and weight since lasix and spironolactone have been stopped. Rachana is following her INR's and adjusting warfarin. 11/23 unable to contact 12/02 unable to contact-left message! 12.04 Pt seems to be stable and being followed by Dr Irvin Park and kidney Dr feels ok with dcing our program. Copies to: RACHANA MUIRP MARYBETH JONES December 04, 2017 11:34
== END 2017-12-07 07:13 | disposition home or self-care (01) ==
LOC: TCM 13:40
PROVIDERS: ATTEND Nurse Practitioner
DX: Z02.9 Encounter for administrative examinations, unspecified (principal)

== ENCOUNTER → 2017-10-08 | Outpatient (CLI) | payer MEDICARE ==
[~2017-10-08] MED LIST changes: +CAR3.125 PO; +ENOX60DI10 SQ; +METF-410 PO; -METF-411 PO; +POTA-23 PO; +WARF2.5T11 PO
== END ==
LOC: LAB 10:40
PROVIDERS: ATTEND Internal Medicine Cardiovascular Disease
DX: I50.23 Acute on chronic systolic (congestive) heart failure (principal)
CPT/HCPCS: 36415; 82310; 82374; 82435; 82565; 82947; 84132; 84295; 84520

== ENCOUNTER → 2017-11-02 | Outpatient (CLI) | payer MEDICARE ==
--- NOTE | 2017-11-02 11:41 | RADIOLOGY IMAGING REPORT ---
FACILITY: [facility] [place] PATIENT NAME: Maribel Valdovinos : 1940 MR: [id number] V: [id number] EXAM DATE: ORDERING PHYSICIAN: DEVYN PA TECHNOLOGIST: Location: [facility] [place] Patient: Maribel Valdovinos : 1940 Visit/Account:[id number] Date of Sevice: 11/02/2017 KIDNEYS EXAMINATION: Renal ultrasound. History: Chronic kidney disease possible unilateral kidney COMPARISON STUDIES: Renal ultrasound December 27, 2012 FINDINGS: Kidneys: Right kidney- 6.4 x 2.5 x 3.9 cm. The resistive index on the right is 0.61. There is severe cortica l thinning on the right. There are multiple right renal cysts the largest measures 1.5 cm in diamete r in the upper pole Left kidney- 10.8 x 3.2 x 4.6 cm. Resistive index on the left measures 0.64. There is a 1.5 cm cyst medial aspect lower pole of the left kidney Uniform and symmetric blood flow in each kidney by Doppler ultrasound. Hydronephrosis: none Bladder: Prevoid volume 80 mL. Post void residual 5 mL. Bilateral ureteral jets are present. Abdominal aorta and IVC: Not imaged IMPRESSION: Severely atrophic right kidney with multiple cysts, largest measuring 1.5 cm 1.5 cm left renal cyst Report Dictated By: Jing Su MD at 11/02/2017 11:34 AM Report E-Signed By: Jing Su MD at 11/02/2017 11:37 AM WSN:[email or web address]
== END ==
LOC: US 09:54
PROVIDERS: ATTEND Internal Medicine
DX: N28.1 Cyst of kidney, acquired (principal); N18.4 Chronic kidney disease, stage 4 (severe)
CPT/HCPCS: 76705

== ENCOUNTER → 2017-11-18 | Outpatient (CLI) | payer MEDICARE ==
[~2017-11-18] MED LIST changes: -METF-410 PO; +METF-411 PO
== END ==
LOC: LAB 10:06
PROVIDERS: ATTEND Internal Medicine Cardiovascular Disease
DX: I50.23 Acute on chronic systolic (congestive) heart failure (principal)
CPT/HCPCS: 36415; 82310; 82374; 82435; 82565; 82947; 84132; 84295; 84520

== ENCOUNTER 2018-02-25 15:22 | Emergency (ER) | payer MEDICARE ==
[~2018-02-25 15:22] MED LIST changes: +ACET-2031 PO; +AMOX-559 PO; +ATR80PT PO; +CARV12.578 PO; +CEPH-13 PO; +FURO-47 PO; +METO5TAB79 PO; +SPIR25TA76 PO
--- NOTE | 2018-02-25 15:31 | ER Report ---
History and Physical Time Seen By MD: 15:30 HPI/ROS CHIEF COMPLAINT: Wound to right lower leg HISTORY OF PRESENT ILLNESS: 77-year-old female patient presents to the emergency room with complaint of a wound to the right lower leg. Patient is a patient of Anali Lynn DNP, who is at physical therapy today. Physical therapists was doing wound care noted that the leg was swollen, it was red, warm , and tender. She states there was a change from Wednesday when she was evaluated initially. She did apply dressing and then 100 come in for evaluation of a DVT. Patient states that she has had worsening pain. She denies having any fevers, chills, nausea, vomiting or diarrhea. She states that she did have a DVT in both legs in September. She's been taking the anticoagulation therapy as directed. Patient states she's not had any chest pain or shortness of breath. Patient was referred to the ER for evaluation of DVTs. REVIEW OF SYSTEMS: Respiratory: No cough, no dyspnea. Cardiovascular: No chest pain, no palpitations. Gastrointestinal: No vomiting, no abdominal pain. Musculoskeletal: No back pain. Allergies: Coded Allergies: amoxicillin (Verified Allergy, Intermediate, hives, 02/25/18) clavulanic acid (Verified Allergy, Intermediate, hives, 02/25/18) hydrochlorothiazide (Verified Allergy, Intermediate, RASH, 02/25/18) Home Meds Active Scripts Clindamycin Hcl (CLINDAMYCIN HCL) 300 Mg Capsule, 300 MG PO Q6H, #40 CAPSULE Prov:MARCELLUS SONGP 02/25/18 Cephalexin (KEFLEX) 500 Mg Capsule, 1 CAP PO QID, #40 CAP 0 Refills Prov:ANALI LYNN DNP, MEMBERSHIP SECRETARY- 02/14/18 Levothyroxine Sodium (LEVOTHYROXINE SODIUM) 50 Mcg Tablet, 50 MCG PO QDAY, #30 TAB 1 Refill Prov:BLAINE WASSERMAN MD 09/24/17 Reported Medications Nitroglycerin (NITROGLYCERIN) 0.4 Mg Tab.subl, 0.4 MG SL Q5MIN 02/25/18 Carvedilol (CARVEDILOL) 12.5 Mg Tablet, 6.25 MG PO BID, #10 TAB 02/25/18 Metolazone (METOLAZONE) 5 Mg Tablet, 5 MG PO 1 PO mon, wed, and fri, 30 minutes before AM lasix dose 01/28/18 Furosemide (FUROSEMIDE) 40 Mg Tablet, 1 TAB PO BID, TAB 01/28/18 Atorvastatin (LIPITOR) 80 Mg Tab, 1 TAB PO QDAY, TAB 01/28/18 Acetaminophen (ACETAMINOPHEN) 325 Mg Tablet, 1 TAB PO QDAY Y for PAIN, TAB 01/28/18 Discontinued Reported Medications Spironolactone (ALDACTONE) 25 Mg Tablet, 1 TAB PO QDAY, TAB 01/28/18 Carvedilol (CARVEDILOL) 12.5 Mg Tablet, 1 TAB PO BID, TAB 3 Refills 01/28/18 Past Medical/Surgical History Patient has a past medical history of CHF, hypertension, hyperlipidemia, kidney failure, diabetes, hypothyroidism. Patient denies any surgical history. Reviewed Nurses Notes: Yes Hx Smoking: Yes Smoking Status: Former Smoker Hx Substance Use Disorder: No Hx Alcohol Use: No Constitutional Vital Sign - Last 24 Hours 02/25/18 02/25/18 02/25/18 02/25/18 15:22 15:23 15:23 15:27 Temp 97.9 Pulse ??? 83 Resp 18 B/P (MAP) 93/47 100/87 (91) Pulse Ox 96 O2 Delivery Nasal Cannula O2 Flow Rate 2.0 02/25/18 02/25/18 02/25/18 02/25/18 15:30 15:37 15:52 16:07 Pulse 81 81 81 B/P (MAP) 92/67 (75) Pulse Ox 93 95 93 02/25/18 02/25/18 02/25/18 02/25/18 16:12 16:27 16:32 16:37 Pulse 81 83 82 81 Pulse Ox 92 88 90 93 02/25/18 02/25/18 02/25/18 02/25/18 16:42 16:47 16:52 16:57 Pulse 80 84 82 80 Pulse Ox 90 93 96 96 02/25/18 02/25/18 02/25/18 02/25/18 17:00 17:02 17:07 17:12 Pulse 80 80 79 B/P (MAP) 98/73 (81) Pulse Ox 96 96 96 02/25/18 02/25/18 02/25/18 02/25/18 17:17 17:22 17:27 17:30 Pulse 80 80 77 B/P (MAP) 93/58 (70) Pulse Ox 97 98 97 02/25/18 02/25/18 17:32 17:37 Pulse 80 79 Pulse Ox 98 98 Intake and Output 02/25/18 02/25/18 02/26/18 14:59 22:59 06:59 Intake Total 102 ml Balance 102 ml Physical Exam General Appearance: The patient is alert, has no immediate need for airway protection and no current signs of toxicity. Respiratory: Chest is non tender, lungs are clear to auscultation. Cardiac: regular rate and rhythm Gastrointestinal: Abdomen is soft and non tender, no masses, bowel sounds normal. Musculoskeletal: Neck: Neck is supple and non tender. Extremities have full range of motion and are non tender. Skin: No rashes or lesions. Patient has a wound to the right lower extremity, it measures approximately 3 cm in diameter, is erythematous around that, he is slightly warm to the touch, no significant drainage noted. DIFFERENTIAL DIAGNOSIS: After history and physical exam differential diagnosis was considered for DVT, cellulitis. Medical Decision Making Data Points Result Diagram: 02/25/18 1550 02/25/18 1550 Laboratory Hematology Test 02/25/18 15:50 Red Blood Count 3.37 M/uL (4.17-5.56) Mean Corpuscular Volume 92.3 fL (80.0-96.0) Mean Corpuscular Hemoglobin 31.7 pg (26.0-33.0) Mean Corpuscular Hemoglobin Concent 34.4 g/dL (32.0-36.0) Red Cell Distribution Width 16.2 % (11.5-14.5) Mean Platelet Volume 9.0 fL (7.2-11.1) Neutrophils (%) (Auto) 78.8 % (39.4-72.5) Lymphocytes (%) (Auto) 6.2 % (17.6-49.6) Monocytes (%) (Auto) 7.5 % (4.1-12.4) Eosinophils (%) (Auto) 6.7 % (0.4-6.7) Basophils (%) (Auto) 0.8 % (0.3-1.4) Nucleated RBC Relative Count (auto) 0.0 /100WBC Neutrophils # (Auto) 5.2 K/uL (2.0-7.4) Lymphocytes # (Auto) 0.4 K/uL (1.3-3.6) Monocytes # (Auto) 0.5 K/uL (0.3-1.0) Eosinophils # (Auto) 0.4 K/uL (0.0-0.5) Basophils # (Auto) 0.1 K/uL (0.0-0.1) Nucleated RBC Absolute Count (auto) 0.00 K/uL Prothrombin Time 13.9 seconds (12.0-14.4) Prothromb Time International Ratio 1.07 Activated Partial Thromboplast Time 33 seconds (23-35) Sodium Level 137 mmol/L (137-145) Potassium Level 4.1 mmol/L (3.5-5.0) Chloride Level 96 mmol/L (98-107) Carbon Dioxide Level 28 mmol/L (22-31) Blood Urea Nitrogen 77 mg/dl (7-18) Creatinine 2.20 mg/dl (0.52-1.04) Glomerular Filtration Rate Calc 21.8 Random Glucose 211 mg/dl (75-110) Calcium Level 10.4 mg/dl (8.4-10.2) Total Bilirubin 0.7 mg/dl (0.2-1.3) Aspartate Amino Transf (AST/SGOT) 22 U/L (0-35) Alanine Aminotransferase (ALT/SGPT) 29 U/L (0-56) Alkaline Phosphatase 62 U/L (0-126) Total Protein 6.2 g/dl (6.3-8.2) Albumin 3.7 g/dl (3.5-5.0) Chemistry Test 02/25/18 15:50 White Blood Count 6.7 k/uL (4.5-11.0) Red Blood Count 3.37 M/uL (4.17-5.56) Hemoglobin 10.7 g/dL (12.0-16.0) Hematocrit 31.1 % (34.0-47.0) Mean Corpuscular Volume 92.3 fL (80.0-96.0) Mean Corpuscular Hemoglobin 31.7 pg (26.0-33.0) Mean Corpuscular Hemoglobin Concent 34.4 g/dL (32.0-36.0) Red Cell Distribution Width 16.2 % (11.5-14.5) Platelet Count 186 K/uL (150-450) Mean Platelet Volume 9.0 fL (7.2-11.1) Neutrophils (%) (Auto) 78.8 % (39.4-72.5) Lymphocytes (%) (Auto) 6.2 % (17.6-49.6) Monocytes (%) (Auto) 7.5 % (4.1-12.4) Eosinophils (%) (Auto) 6.7 % (0.4-6.7) Basophils (%) (Auto) 0.8 % (0.3-1.4) Nucleated RBC Relative Count (auto) 0.0 /100WBC Neutrophils # (Auto) 5.2 K/uL (2.0-7.4) Lymphocytes # (Auto) 0.4 K/uL (1.3-3.6) Monocytes # (Auto) 0.5 K/uL (0.3-1.0) Eosinophils # (Auto) 0.4 K/uL (0.0-0.5) Basophils # (Auto) 0.1 K/uL (0.0-0.1) Nucleated RBC Absolute Count (auto) 0.00 K/uL Prothrombin Time 13.9 seconds (12.0-14.4) Prothromb Time International Ratio 1.07 Activated Partial Thromboplast Time 33 seconds (23-35) Glomerular Filtration Rate Calc 21.8 Calcium Level 10.4 mg/dl (8.4-10.2) Total Bilirubin 0.7 mg/dl (0.2-1.3) Aspartate Amino Transf (AST/SGOT) 22 U/L (0-35) Alanine Aminotransferase (ALT/SGPT) 29 U/L (0-56) Alkaline Phosphatase 62 U/L (0-126) Total Protein 6.2 g/dl (6.3-8.2) Albumin 3.7 g/dl (3.5-5.0) Coagulation Test 02/25/18 15:50 Prothrombin Time 13.9 seconds Prothromb Time International Ratio 1.07 Activated Partial Thromboplast Time 33 seconds Microbiology Microbiology Date/Time Source Procedure Growth Status 02/25/18 17:00 Leg Right Gram Stain - Final Resulted 02/25/18 17:00 Leg Right Wound Culture Pending Resulted 02/25/18 17:00 Leg Right Anaerobic Culture Pending Resulted EKG/Imaging Imaging Venous Doppler ultrasound right lower extremity Indication: Right leg swelling. Open wound.. Comparison: 09/23/2017. Findings: Duplex Doppler and color flow imaging was performed. The common femoral, femoral, and popliteal veins are all patent and compressible with normal Doppler wave forms. There are normal responses to augmentation. The posterior tibial and peroneal veins are patent in the calf. The proximal greater saphenous vein is also normal. Subcutaneous tissues are unremarkable. IMPRESSION: 1. No evidence of deep venous thrombosis of the right lower extremity. Resolution the previous thrombus. Report Dictated By: Boris Kirk at 02/25/2018 4:59 PM Report E-Signed By: Boris Kirk at 02/25/2018 5:00 PM ED Course/Re-evaluation ED Course Patient was admitted to an exam room, history and physical were obtained. Differential diagnoses were considered. On examination patient does have a 3 cm wound to the medial aspect of the right lower leg. A CBC, CMP were done. Labs were unremarkable for the patient, she did have a creatinine of 2.2 with a GFR of 21%. A ultrasound of the right lower extremity was done which was negative for DVTs. The wound was undressed for the ultrasound, following ultrasound I did go in and get a culture on it. The wound was then redressed by myself using Xeroform and an adhesive dressing. Patient tolerated that well. With a negative DVT study the patient was put on clindamycin 300 mg with first dose being given IV. Prescription was sent into her pharmacy. We will go ahead and have her follow-up with Anali Ortega next week as well as Dr. Queen. She is return to emergency room if condition worsens. Patient verbalized understanding and agreement with plan. Decision to Disposition Date: Feb 25, 2018 Decision to Disposition Time: 17:36 Depart Departure Latest Vital Signs Vital Signs Date Time Temp Pulse Resp B/P (MAP) Pulse Ox O2 Delivery O2 Flow Rate FiO2 02/25/18 17:37 79 98 02/25/18 17:30 93/58 (70) 02/25/18 15:23 97.9 18 Nasal Cannula 02/25/18 15:23 2.0 Impression: Primary Impression: Ulcer of right lower leg Condition: Improved Disposition: HOME OR SELF-CARE New Scripts Clindamycin Hcl (CLINDAMYCIN HCL) 300 Mg Capsule 300 MG PO Q6H, #40 CAPSULE Prov: MARCELLUS SONG 02/25/18 Patient Instructions: Wound Infection (ED) Additional Instructions: Limit activity by pain. Increase fluid intake. Get plenty of rest. Follow up with Anali Lynn next week, call on Wednesday to make an appointment. Change dressing as instructed. Take antibiotics as directed. Return to the ER if condition worsens. Problem Qualifiers Primary Impression: Ulcer of right lower leg Non-pressure ulcer stage: with fat layer exposed Qualified Codes: L97.912 - Non-pressure chronic ulcer of unspecified part of right lower leg with fat layer exposed MARCELLUS SONG Feb 25, 2018 15:30
[2018-02-25] MEDS ORDERED: CARV12.578 PO (15:34)
[2018-02-25] MEDS ORDERED: NITR0.4T3 SL (15:34)
[2018-02-25 16:23] LABS: INR 1.07; PLATELET COUNT, AUTOMATED 186 K/uL (150-450)
[2018-02-25] MEDS ORDERED: CLINDAMYCIN(*) 300 MG/2 ML VI 300 MG in NS(*) 0.9% 100 ML BAG 100 ML IVPB ONE (17:05)
--- NOTE | 2018-02-25 17:05 | RADIOLOGY IMAGING REPORT ---
FACILITY: [facility] PATIENT NAME: Maribel Valdovinos : 1940 MR: [id number] V: [id number] EXAM DATE: ORDERING PHYSICIAN: MARCELLUS SONG TECHNOLOGIST: Location: [facility] [place] Patient: Maribel Valdovinos : 1940 Visit/Account:[id number] Date of Sevice: 02/25/2018 Venous Doppler ultrasound right lower extremity Indication: Right leg swelling. Open wound.. Comparison: 09/23/2017. Findings: Duplex Doppler and color flow imaging was performed. The common femoral, femoral, and popl iteal veins are all patent and compressible with normal Doppler wave forms. There are normal respons es to augmentation. The posterior tibial and peroneal veins are patent in the calf. The proximal greater saphenous vein i s also normal. Subcutaneous tissues are unremarkable. IMPRESSION: 1. No evidence of deep venous thrombosis of the right lower extremity. Resolution the previous thromb us. Report Dictated By: Boris Kirk at 02/25/2018 4:59 PM Report E-Signed By: Boris Kirk at 02/25/2018 5:00 PM WSN:[id number]
[2018-02-25 17:30] VITALS: BP 93/58
[2018-02-25] MEDS ORDERED: CLIN300C99 PO (17:34)
== END 2018-02-25 17:40 | disposition home or self-care (01) ==
LOC: ER 15:33
DX: L97.912 Non-pressure chronic ulcer of unspecified part of right lower leg with fat layer exposed (principal); I13.2 Hypertensive heart and chronic kidney disease with heart failure and with stage 5 chronic kidney disease, or end stage renal disease; I50.9 Heart failure, unspecified; N18.6 End stage renal disease; E11.22 Type 2 diabetes mellitus with diabetic chronic kidney disease; E78.5 Hyperlipidemia, unspecified; E03.9 Hypothyroidism, unspecified; Z87.891 Personal history of nicotine dependence; Z79.01 Long term (current) use of anticoagulants; Z79.899 Other long term (current) drug therapy
CPT/HCPCS: 85025; 85610; 85730; 87070; 87073; 87077; 87186; 87205; 96365; 99283; J3490; J7050; 82040; 82247; 82310; 82374; 82435; 82565; 82947; 84075; 84132; 84155; 84295; 84450; 84460; 84520

== ENCOUNTER 2018-03-04 15:07 | Emergency (ER) | payer MEDICARE ==
[~2018-03-04 15:07] MED LIST changes: +CLIN300C99 PO; +NITR0.4T3 SL
--- NOTE | 2018-03-04 15:34 | ER Report ---
History and Physical Time Seen By MD: 15:33 Hx. of Stated Complaint: PT SENT FROM [facility] TODAY, WOUND ON R LOWER LEG GETTING WORSE, NOT ON ANY ABX HPI/ROS CHIEF COMPLAINT: wound infection, cellulitis HISTORY OF PRESENT ILLNESS: Pt has been treated for r leg wound infection for the past month. Wound initially started as a cat scratch and then progressed into an ulcer. The ulcer has increased in size and depth over the last month. Pt has been seen by Dr. Irizarry for debridement twice and is to see him next week. PT is currently getting wound care twice a week at [facility]. Pt today was sent here from [facility] due to the wound becoming increasingly worse since last evaluation. Pt was on abx which were stopped by Dr. Myers a few days ago. Pt has had a wound culture on prior ed visit 02/25 which shows + pseudomonas growth. PT is concerned due to dm and feels she may need admission. no fevers. + increased redness to area. REVIEW OF SYSTEMS: Constitutional: No fever, no chills. Eyes: No discharge. ENT: No sore throat. Cardiovascular: No chest pain, no palpitations. Respiratory: No cough, no shortness of breath. Gastrointestinal: No abdominal pain, no vomiting. Genitourinary: No hematuria. Musculoskeletal: No back pain. Skin: No rashes. + r leg wound Neurological: No headache. Allergies: Coded Allergies: amoxicillin (Verified Allergy, Intermediate, hives, 03/04/18) clavulanic acid (Verified Allergy, Intermediate, hives, 03/04/18) hydrochlorothiazide (Verified Allergy, Intermediate, RASH, 03/04/18) Home Meds Active Scripts Levothyroxine Sodium (LEVOTHYROXINE SODIUM) 50 Mcg Tablet, 50 MCG PO QDAY, #30 TAB 1 Refill Prov:BLAINE WASSERMAN MD 09/24/17 Reported Medications Nitroglycerin (NITROGLYCERIN) 0.4 Mg Tab.subl, 0.4 MG SL Q5MIN 02/25/18 Carvedilol (CARVEDILOL) 12.5 Mg Tablet, 6.25 MG PO BID, #10 TAB 02/25/18 Metolazone (METOLAZONE) 5 Mg Tablet, 5 MG PO 1 PO mon, wed, and fri, 30 minutes before AM lasix dose 01/28/18 Furosemide (FUROSEMIDE) 40 Mg Tablet, 1 TAB PO BID, TAB 01/28/18 Atorvastatin (LIPITOR) 80 Mg Tab, 1 TAB PO QDAY, TAB 01/28/18 Acetaminophen (ACETAMINOPHEN) 325 Mg Tablet, 1 TAB PO QDAY PRN for PAIN, TAB 01/28/18 Discontinued Reported Medications Spironolactone (ALDACTONE) 25 Mg Tablet, 1 TAB PO QDAY, TAB 01/28/18 Carvedilol (CARVEDILOL) 12.5 Mg Tablet, 1 TAB PO BID, TAB 3 Refills 01/28/18 Discontinued Scripts Clindamycin Hcl (CLINDAMYCIN HCL) 300 Mg Capsule, 300 MG PO Q6H, #40 CAPSULE Prov:MARCELLUS SONG JOB PLACEMENT OFFICER 02/25/18 Cephalexin (KEFLEX) 500 Mg Capsule, 1 CAP PO QID, #40 CAP 0 Refills Prov:ANALI LYNN DNP, JOB PLACEMENT OFFICER-BC 02/14/18 Past Medical/Surgical History Pmhx: hypothyroid, chf, cad, renal failure, dm Pshx: wound debridement Reviewed Nurses Notes: Yes Old Medical Records Reviewed: Yes Hx Smoking: Yes Smoking Status: Former Smoker Hx Substance Use Disorder: No Hx Alcohol Use: No Constitutional Vital Sign - Last 24 Hours 03/04/18 03/04/18 03/04/18 03/04/18 15:10 15:20 15:30 15:37 Temp 97.6 Pulse 96 86 Resp 18 B/P (MAP) 123/76 123/76 (92) 118/79 (92) Pulse Ox 94 97 O2 Delivery Nasal Cannula 03/04/18 03/04/18 03/04/18 16:00 16:07 16:30 Pulse 80 B/P (MAP) 111/74 (86) 113/76 (88) Pulse Ox 96 Physical Exam General Appearance: The patient is alert, has no immediate need for airway protection and no signs of toxicity. Eyes: Pupils equal and round no pallor or injection, EOMI ENT: no pharyngeal erythema or exudates, Mucous membranes are moist Respiratory: There are no retractions, lungs are clear to auscultation. Cardiovascular: Regular rate and rhythm. pulses are equal and symmetrical Gastrointestinal: Abdomen is soft and non tender, no masses, bowel sounds normal, no guarding, no rigidity or rebound Neurological: Cranial nerves II-XII grossly intact, no sensory or motor loss Skin: Warm and dry, + 5x2cm ulceration with some granulation tissue within the wound and surrounding erythema Musculoskeletal: Neck is supple non tender, no vertebral tenderness Extremities are nontender, nonswollen and have full range of motion. DIFFERENTIAL DIAGNOSIS: After history and physical exam differential diagnosis was considered for failure of outpt treatment of wound Medical Decision Making Data Points Result Diagram: 03/04/18 1535 03/04/18 1535 Laboratory Hematology Test 03/04/18 15:35 Red Blood Count 3.66 M/uL (4.17-5.56) Mean Corpuscular Volume 93.1 fL (80.0-96.0) Mean Corpuscular Hemoglobin 30.6 pg (26.0-33.0) Mean Corpuscular Hemoglobin Concent 32.8 g/dL (32.0-36.0) Red Cell Distribution Width 16.2 % (11.5-14.5) Mean Platelet Volume 8.8 fL (7.2-11.1) Neutrophils (%) (Auto) 77.0 % (39.4-72.5) Lymphocytes (%) (Auto) 8.9 % (17.6-49.6) Monocytes (%) (Auto) 8.5 % (4.1-12.4) Eosinophils (%) (Auto) 4.9 % (0.4-6.7) Basophils (%) (Auto) 0.7 % (0.3-1.4) Nucleated RBC Relative Count (auto) 0.1 /100WBC Neutrophils # (Auto) 6.5 K/uL (2.0-7.4) Lymphocytes # (Auto) 0.7 K/uL (1.3-3.6) Monocytes # (Auto) 0.7 K/uL (0.3-1.0) Eosinophils # (Auto) 0.4 K/uL (0.0-0.5) Basophils # (Auto) 0.1 K/uL (0.0-0.1) Nucleated RBC Absolute Count (auto) 0.01 K/uL Sodium Level 138 mmol/L (137-145) Potassium Level 3.7 mmol/L (3.5-5.0) Chloride Level 103 mmol/L (98-107) Carbon Dioxide Level 26 mmol/L (22-31) Blood Urea Nitrogen 61 mg/dl (7-18) Creatinine 1.80 mg/dl (0.52-1.04) Glomerular Filtration Rate Calc 27.4 Random Glucose 185 mg/dl (75-110) Calcium Level 9.6 mg/dl (8.4-10.2) C-Reactive Protein 2.0 mg/dl (<1.0) Chemistry Test 03/04/18 15:35 White Blood Count 8.4 k/uL (4.5-11.0) Red Blood Count 3.66 M/uL (4.17-5.56) Hemoglobin 11.2 g/dL (12.0-16.0) Hematocrit 34.1 % (34.0-47.0) Mean Corpuscular Volume 93.1 fL (80.0-96.0) Mean Corpuscular Hemoglobin 30.6 pg (26.0-33.0) Mean Corpuscular Hemoglobin Concent 32.8 g/dL (32.0-36.0) Red Cell Distribution Width 16.2 % (11.5-14.5) Platelet Count 268 K/uL (150-450) Mean Platelet Volume 8.8 fL (7.2-11.1) Neutrophils (%) (Auto) 77.0 % (39.4-72.5) Lymphocytes (%) (Auto) 8.9 % (17.6-49.6) Monocytes (%) (Auto) 8.5 % (4.1-12.4) Eosinophils (%) (Auto) 4.9 % (0.4-6.7) Basophils (%) (Auto) 0.7 % (0.3-1.4) Nucleated RBC Relative Count (auto) 0.1 /100WBC Neutrophils # (Auto) 6.5 K/uL (2.0-7.4) Lymphocytes # (Auto) 0.7 K/uL (1.3-3.6) Monocytes # (Auto) 0.7 K/uL (0.3-1.0) Eosinophils # (Auto) 0.4 K/uL (0.0-0.5) Basophils # (Auto) 0.1 K/uL (0.0-0.1) Nucleated RBC Absolute Count (auto) 0.01 K/uL Glomerular Filtration Rate Calc 27.4 Calcium Level 9.6 mg/dl (8.4-10.2) C-Reactive Protein 2.0 mg/dl (<1.0) ED Course/Re-evaluation Clinical Indication for ER IV: IV Access ED Course check labs 03/04/2018 4:29:15 pm PTs labs are back. White count is stable but elevated crp. Spoke with pt and she would like to go home if possible and not be admitted. Pt has not been on oral medication this week and has pictures showing the progression of worsening ulceration since off the medication. . Will treat her pseudomonas which is most sensitive to cipro. Pt will require close follow up . Pt has an appt with wound care on wednesday but she said she can move it to Wednesday. Pt is told to return if symptoms worsen prior to her wednesday appointment. IF she fails outpt treatemtn then she will require admission. Decision to Disposition Date: Mar 04, 2018 Decision to Disposition Time: 16:48 Depart Departure Latest Vital Signs Vital Signs Date Time Temp Pulse Resp B/P (MAP) Pulse Ox O2 Delivery O2 Flow Rate FiO2 03/04/18 16:30 113/76 (88) 03/04/18 16:07 80 96 03/04/18 15:10 97.6 18 Nasal Cannula Impression: Primary Impression: Pseudomonas aeruginosa infection Additional Impressions: Skin ulceration Infected open wound Condition: Stable Disposition: HOME OR SELF-CARE Referrals: DEVI MYERS MD New Scripts Ciprofloxacin Hcl (CIPROFLOXACIN HCL) 500 Mg Tablet 500 MG PO Q12H, #20 TAB Prov: NEDA PETIT DO 03/04/18 Patient Instructions: GENERAL ER DISCHARGE INSTRUCTIONS Additional Instructions: We are restarting you on an antibiotic that is specific for the bacteria, pseudomonas, which grew in your wound. You will need to start your antibiotic in the morning and it is twice a day. You will need to have your wound rechecked on Wednesday. If your wound worsens or fevers develop prior to Wednesday then please return to the emergency room for possible admission. Problem Qualifiers Additional Impressions: Skin ulceration Non-pressure ulcer stage: with fat layer exposed Qualified Codes: L98.492 - Non-pressure chronic ulcer of skin of other sites with fat layer exposed NEDA PETIT DO Mar 04, 2018 15:34
[2018-03-04 15:56] LABS: PLATELET COUNT, AUTOMATED 268 K/uL (150-450)
[2018-03-04] MEDS ORDERED: LEVOFLOXACIN/D5W*500 MG/100 ML 100 ML IVPB ONE (16:10)
[2018-03-04] MEDS ORDERED: CIPR-214 PO (16:54)
[2018-03-04 17:29] VITALS: BP 110/72
== END 2018-03-04 17:32 | disposition home or self-care (01) ==
LOC: ER 15:39
DX: B96.5 Pseudomonas (aeruginosa) (mallei) (pseudomallei) as the cause of diseases classified elsewhere (principal); L98.492 Non-pressure chronic ulcer of skin of other sites with fat layer exposed
CPT/HCPCS: 85025; 86140; 87040; 96365; 99283; J1956; 82310; 82374; 82435; 82565; 82947; 84132; 84295; 84520

== ENCOUNTER 2018-03-07 11:41 | Emergency (ER) | payer MEDICARE ==
[~2018-03-07 11:41] MED LIST changes: +METF-411 PO; -METF-450 PO
--- NOTE | 2018-03-07 11:54 | ER Report ---
History and Physical Time Seen By MD: 11:51 HPI/ROS CHIEF COMPLAINT: Sequelae from Bite, leg infection HISTORY OF PRESENT ILLNESS: This is a 77-year-old female who presents to the emergency department with a friend for recurrent wound infection and debridement of a Bite. According this patient approximately 4-6 weeks ago she was scratched by her cat, subsequently developed an infection was evaluated by her primary care provider, started on antibiotics. Did follow up with wound care and [facility], has had evaluation by Dr. Irizarry with some debridement of the wound. Initially there were 2 wounds on the right or medial calf that have coalesced, the patient was seen and evaluated again in the emergency department last Wednesday, was started on Cipro has been taking them regularly as prescribed, was seen and evaluated by wound care at [facility] where they became concerned about the appearance of the wound and subsequently was sent to the emergency department. They also contacted [place] [facility] and they were concerned at the images that were sent and suggested following up as soon as possible in the emergency department. According to the staff that saw her on Wednesday and the redness has improved however at the base of the wound has changed in appearance. There does appear to be an eschar appearance to the wound. The patient is also diabetic. Patient denies fevers or chills. No chest pain or shortness of breath. No headaches. No nausea or vomiting. The right lower extremity is warm to touch but not hot. REVIEW OF SYSTEMS: Constitutional: No fever, no chills. Eyes: No discharge. ENT: No sore throat. Cardiovascular: No chest pain, no palpitations. Respiratory: No cough, no shortness of breath. Gastrointestinal: No abdominal pain, no vomiting. Genitourinary: No hematuria. Musculoskeletal: No back pain. Skin: As above. Neurological: No headache. Allergies: Coded Allergies: amoxicillin (Verified Allergy, Intermediate, hives, 03/07/18) clavulanic acid (Verified Allergy, Intermediate, hives, 03/07/18) hydrochlorothiazide (Verified Allergy, Intermediate, RASH, 03/07/18) Home Meds Active Scripts Ciprofloxacin Hcl (CIPROFLOXACIN HCL) 500 Mg Tablet, 500 MG PO Q12H, #20 TAB Prov:NEDA PETIT DO 03/04/18 Levothyroxine Sodium (LEVOTHYROXINE SODIUM) 50 Mcg Tablet, 50 MCG PO QDAY, #30 TAB 1 Refill Prov:BLAINE WASSERMAN MD 09/24/17 Reported Medications Nitroglycerin (NITROGLYCERIN) 0.4 Mg Tab.subl, 0.4 MG SL Q5MIN 02/25/18 Carvedilol (CARVEDILOL) 12.5 Mg Tablet, 6.25 MG PO BID, #10 TAB 02/25/18 Metolazone (METOLAZONE) 5 Mg Tablet, 5 MG PO 1 PO mon, wed, and fri, 30 minutes before AM lasix dose 01/28/18 Furosemide (FUROSEMIDE) 40 Mg Tablet, 1 TAB PO BID, TAB 01/28/18 Atorvastatin (LIPITOR) 80 Mg Tab, 1 TAB PO QDAY, TAB 01/28/18 Acetaminophen (ACETAMINOPHEN) 325 Mg Tablet, 1 TAB PO QDAY PRN for PAIN, TAB 01/28/18 Discontinued Scripts Clindamycin Hcl (CLINDAMYCIN HCL) 300 Mg Capsule, 300 MG PO Q6H, #40 CAPSULE Prov:MARCELLUS SONG PAINTER APPRENTICE 02/25/18 Cephalexin (KEFLEX) 500 Mg Capsule, 1 CAP PO QID, #40 CAP 0 Refills Prov:ANALI LYNN DNP, PAINTER APPRENTICE-BC 02/14/18 Past Medical/Surgical History The patient has a past medical and surgical history of hypothyroidism, CHF, CAD, renal failure, diabetes mellitus. Surgical history of wound debridement. Reviewed Nurses Notes: Yes Hx Smoking: Yes Smoking Status: Former Smoker Hx Substance Use Disorder: No Hx Alcohol Use: No Constitutional Vital Sign - Last 24 Hours 03/07/18 03/07/18 03/07/18 03/07/18 11:45 11:45 11:48 12:00 Temp 97.9 Pulse 95 Resp 18 B/P (MAP) 122/82 122/82 (95) 120/77 (91) Pulse Ox 97 O2 Delivery Room Air O2 Flow Rate 2.0 03/07/18 03/07/18 03/07/18 03/07/18 12:11 12:30 12:41 13:00 Pulse 89 85 B/P (MAP) 118/80 (93) 126/86 (99) Pulse Ox 98 97 03/07/18 03/07/18 03/07/18 03/07/18 13:11 13:30 13:35 14:00 Pulse 88 B/P (MAP) 127/84 (98) 131/86 (101) Pulse Ox 97 99 03/07/18 03/07/18 03/07/18 03/07/18 14:05 14:10 14:30 14:40 Pulse 91 93 83 B/P (MAP) 133/81 (98) Pulse Ox 100 99 98 03/07/18 03/07/18 03/07/18 03/07/18 15:10 15:30 15:40 16:00 Pulse 90 B/P (MAP) 139/97 (111) 140/95 (110) Pulse Ox 98 100 03/07/18 03/07/18 03/07/18 16:15 16:20 16:30 Pulse 96 97 B/P (MAP) 125/69 (87) Pulse Ox 100 100 Physical Exam General Appearance: The patient is alert, has no immediate need for airway protection and no signs of toxicity. Eyes: Pupils equal and round no pallor or injection. ENT, Mouth: Mucous membranes are moist. Respiratory: There are no retractions, lungs are clear to auscultation, slightly diminished in the right lower base. Cardiovascular: Regular rate and rhythm, very faint systolic murmur, no clicks or rubs. Gastrointestinal: Abdomen is soft and non tender, no masses, bowel sounds normal. Neurological: Alert and oriented 4. Moving all extremities. Following all commands. No focal neuro deficits. Skin and Extremities : At its longest points the wound measures 9 cm x 8.5 cm, with an irregular, eroded, eschar base no drainage no identifiable granulation tissue. The surrounding tissue is reddened which is warm to touch. No palpable right femoral pulse. Very faint palpable dorsalis pedis pulse, no posterior tibial distal to the wound, + Doppler dorsalis and tibial but diminished. 1-2+ pitting edema to the foot, 2+ pitting edema to the left lower leg which is normal for the patient. Musculoskeletal: Neck is supple non tender. DIFFERENTIAL DIAGNOSIS: After history and physical exam differential diagnosis was considered for osteomyelitis, continuation of wound infection, PVD, PAD, failed outpatient wound care and diabetic ulcer. Medical Decision Making Data Points Result Diagram: 03/07/18 1257 03/07/18 1250 Laboratory Hematology Test 03/07/18 12:50 03/07/18 12:57 Sodium Level 137 mmol/L (137-145) Potassium Level 3.5 mmol/L (3.5-5.0) Chloride Level 100 mmol/L (98-107) Carbon Dioxide Level 28 mmol/L (22-31) Blood Urea Nitrogen 57 mg/dl (7-18) Creatinine 2.00 mg/dl (0.52-1.04) Glomerular Filtration Rate Calc 24.3 Random Glucose 164 mg/dl (75-110) Lactate 1.2 mmol/L (0.7-2.1) Calcium Level 10.4 mg/dl (8.4-10.2) Total Bilirubin 0.5 mg/dl (0.2-1.3) Aspartate Amino Transf (AST/SGOT) 16 U/L (0-35) Alanine Aminotransferase (ALT/SGPT) 37 U/L (0-56) Alkaline Phosphatase 70 U/L (0-126) Total Protein 5.9 g/dl (6.3-8.2) Albumin 3.6 g/dl (3.5-5.0) Red Blood Count 3.60 M/uL (4.17-5.56) Mean Corpuscular Volume 92.6 fL (80.0-96.0) Mean Corpuscular Hemoglobin 30.4 pg (26.0-33.0) Mean Corpuscular Hemoglobin Concent 32.9 g/dL (32.0-36.0) Red Cell Distribution Width 16.2 % (11.5-14.5) Mean Platelet Volume 7.8 fL (7.2-11.1) Neutrophils (%) (Auto) 82.0 % (39.4-72.5) Lymphocytes (%) (Auto) 6.5 % (17.6-49.6) Monocytes (%) (Auto) 8.6 % (4.1-12.4) Eosinophils (%) (Auto) 2.1 % (0.4-6.7) Basophils (%) (Auto) 0.8 % (0.3-1.4) Nucleated RBC Relative Count (auto) 0.0 /100WBC Neutrophils # (Auto) 8.1 K/uL (2.0-7.4) Lymphocytes # (Auto) 0.6 K/uL (1.3-3.6) Monocytes # (Auto) 0.9 K/uL (0.3-1.0) Eosinophils # (Auto) 0.2 K/uL (0.0-0.5) Basophils # (Auto) 0.1 K/uL (0.0-0.1) Nucleated RBC Absolute Count (auto) 0.00 K/uL Peripheral Blood Smear No Y/N Chemistry Test 03/07/18 12:50 03/07/18 12:57 Glomerular Filtration Rate Calc 24.3 Lactate 1.2 mmol/L (0.7-2.1) Calcium Level 10.4 mg/dl (8.4-10.2) Total Bilirubin 0.5 mg/dl (0.2-1.3) Aspartate Amino Transf (AST/SGOT) 16 U/L (0-35) Alanine Aminotransferase (ALT/SGPT) 37 U/L (0-56) Alkaline Phosphatase 70 U/L (0-126) Total Protein 5.9 g/dl (6.3-8.2) Albumin 3.6 g/dl (3.5-5.0) White Blood Count 9.9 k/uL (4.5-11.0) Red Blood Count 3.60 M/uL (4.17-5.56) Hemoglobin 10.9 g/dL (12.0-16.0) Hematocrit 33.3 % (34.0-47.0) Mean Corpuscular Volume 92.6 fL (80.0-96.0) Mean Corpuscular Hemoglobin 30.4 pg (26.0-33.0) Mean Corpuscular Hemoglobin Concent 32.9 g/dL (32.0-36.0) Red Cell Distribution Width 16.2 % (11.5-14.5) Platelet Count 275 K/uL (150-450) Mean Platelet Volume 7.8 fL (7.2-11.1) Neutrophils (%) (Auto) 82.0 % (39.4-72.5) Lymphocytes (%) (Auto) 6.5 % (17.6-49.6) Monocytes (%) (Auto) 8.6 % (4.1-12.4) Eosinophils (%) (Auto) 2.1 % (0.4-6.7) Basophils (%) (Auto) 0.8 % (0.3-1.4) Nucleated RBC Relative Count (auto) 0.0 /100WBC Neutrophils # (Auto) 8.1 K/uL (2.0-7.4) Lymphocytes # (Auto) 0.6 K/uL (1.3-3.6) Monocytes # (Auto) 0.9 K/uL (0.3-1.0) Eosinophils # (Auto) 0.2 K/uL (0.0-0.5) Basophils # (Auto) 0.1 K/uL (0.0-0.1) Nucleated RBC Absolute Count (auto) 0.00 K/uL Peripheral Blood Smear No Y/N EKG/Imaging Imaging Location: [facility] [place] Patient: Maribel Valdovinos : 1940 Visit/Account:[id number] Date of Sevice: 03/07/2018 TIBIA FIBULA RIGHT Indication: Can scratch wound, nonhealing Comparison: None available Findings: Two views right tibia and fibula show no acute fracture or dislocation. There is no focal soft tissue abnormality. No evidence of radiopaque foreign body. Extensive vascular calcifications are present. IMPRESSION: No soft tissue abnormality noted. Report Dictated By: Ministerio Stanley at 03/07/2018 2:41 PM Report E-Signed By: Ministerio Stanley at 03/07/2018 2:42 PM WSN:[id number] ED Course/Re-evaluation Clinical Indication for ER IV: Hydration, IV Access ED Course The patient was admitted to room. History physical obtained. Differential diagnoses were considered. An IV was started. A CBC, CMP, blood cultures were obtained. A lactate was obtained. H&H 10.9 and 33.3, BUN 57 creatinine 2.0, blood sugar 164. Lactate 1.2. X-ray of the right larger be showing no soft tissue concerns. I did review these results with the patient. I also consulted Dr. Huang the surgeon concrete bucket loader, he did assess the patient as well, see note below. With the non healing wound that appears to be increasing in size, the eschar we elected to send the patient to [facility] for infectious disease and vascular consult. The patient is in agreement with this and will be transferred by ground to [facility]. No palpable right femoral pulse, and monophasic doppler of the right dorsalis pedis and posterior tibial. 03/07/2018 2:30:46 pm I did speak with Dr. Huang the surgeon on-call, he did assess the patient and felt that she would be better served at [facility] where she has her conceptor Dr. Lai's available and for a possible vascular surgery consult on the right lower leg as there is poor blood flow and have the infectious disease group consult as well. 03/07/2018 3:10:58 pm I did speak with Dr. Cao at [facility], he has accepted the patient into his services, she will likely need a vascular surgical consult for the lower extremity, infectious disease and wound care as well. The patient is in agreement with this. Patient will be transferred to [facility]. Decision to Disposition Date: Mar 07, 2018 Decision to Disposition Time: 15:10 Depart Departure Latest Vital Signs Vital Signs Date Time Temp Pulse Resp B/P (MAP) Pulse Ox O2 Delivery O2 Flow Rate FiO2 03/07/18 16:30 125/69 (87) 03/07/18 16:20 97 100 03/07/18 11:45 2.0 03/07/18 11:45 97.9 18 Room Air Impression: Primary Impression: Ulcer of right lower leg Additional Impressions: Infected open wound Type II diabetes mellitus Condition: Improved Disposition: XFER TO [facility] (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
[2018-03-07 13:02] LABS: PLATELET COUNT, AUTOMATED 275 K/uL (150-450)
--- NOTE | 2018-03-07 14:46 | RADIOLOGY IMAGING REPORT ---
FACILITY: [facility] PATIENT NAME: Maribel Valdovinos : 1940 MR: [id number] V: [id number] EXAM DATE: ORDERING PHYSICIAN: RENETTA STEIN TECHNOLOGIST: Location[place] [facility] [place] Patient: Maribel Valdovinos : 1940 Visit/Account:[id number] Date of Sevice: 03/07/2018 TIBIA FIBULA RIGHT Indication: Can scratch wound, nonhealing Comparison: None available Findings: Two views right tibia and fibula show no acute fracture or dislocation. There is no focal soft tissue abnormality. No evidence of radiopaque foreign body. Extensive vascular calcifications are present. IMPRESSION: No soft tissue abnormality noted. Report Dictated By: Ministerio Stanley at 03/07/2018 2:41 PM Report E-Signed By: Ministerio Stanley at 03/07/2018 2:42 PM WSN:[id number]
[2018-03-07 16:30] VITALS: BP 125/69
== END 2018-03-07 16:37 | disposition short-term general hospital (02) ==
LOC: ER 11:45
DX: L97.913 Non-pressure chronic ulcer of unspecified part of right lower leg with necrosis of muscle (principal); E11.59 Type 2 diabetes mellitus with other circulatory complications; L08.9 Local infection of the skin and subcutaneous tissue, unspecified
CPT/HCPCS: 36415; 82040; 82247; 82310; 82374; 82435; 82565; 82947; 83605; 84075; 84132; 84155; 84295; 84450; 84460; 84520; 85025; 87040; 99283

== ENCOUNTER → 2018-03-07 | Outpatient (CLI) | payer MEDICARE ==
[~2018-03-07] MED LIST changes: +CIPR-214 PO; -METF-411 PO; +METF-450 PO
== END ==
LOC: AMB 16:27
PROVIDERS: ATTEND Nurse Practitioner
DX: S81.802A Unspecified open wound, left lower leg, initial encounter (principal)
CPT/HCPCS: A0425; A0426

== ENCOUNTER → 2018-04-01 | Outpatient (REF) | payer MEDICARE ==
[~2018-04-01] MED LIST changes: -METF-411 PO; +METF-450 PO
== END ==
LOC: ZZSTITCHES 15:34
PROVIDERS: ATTEND Physician Assistant
DX: S81.801A Unspecified open wound, right lower leg, initial encounter (principal); L03.115 Cellulitis of right lower limb; B96.89 Other specified bacterial agents as the cause of diseases classified elsewhere
CPT/HCPCS: 87070; 87077; 87186

== ENCOUNTER 2018-04-08 13:49 | Inpatient (IN) | payer MEDICARE ==
[~2018-04-08] VITALS: Ht 149.9 cm; Wt 54.7 kg
--- NOTE | 2018-04-08 13:59 | ER Report ---
History and Physical Time Seen By MD: 13:59 HPI/ROS CHIEF COMPLAINT: Shortness of breath HISTORY OF PRESENT ILLNESS: 78-year-old female patient presents to emergency room with complaint of shortness of breath. Patient states that she's been fee ling short of breath since last night. She states she's noticed some significant swelling to her lower extremities over the past week. Patient states that she is taking Lasix daily. She states she's been taking that as directed. Her granddaughter who is currently living with her does state that she has not been taking that regularly and states she has missed the last 3 days. She is not been doing daily weight checks keep an eye on her weight. Daughter states the patient is a DO NOT RESUSCITATE, and that she has a wound to the right lower extremity which has been evaluated fully and is just doing dressing changes. She states the patient has been complaining of weakness and dyspnea and fatigue over the last couple days. She was as recent she's not been taking her Lasix as she does not have energy to get up and go the bathroom. REVIEW OF SYSTEMS: Respiratory: As noted above. Cardiovascular: No chest pain, no palpitations. Gastrointestinal: No vomiting, no abdominal pain. Musculoskeletal: No back pain. Allergies: Coded Allergies: amoxicillin (Verified Allergy, Intermediate, hives, 03/07/18) clavulanic acid (Verified Allergy, Intermediate, hives, 03/07/18) hydrochlorothiazide (Verified Allergy, Intermediate, RASH, 03/07/18) Home Meds Active Scripts Levothyroxine Sodium (LEVOTHYROXINE SODIUM) 50 Mcg Tablet, 50 MCG PO QDAY, #30 TAB 1 Refill Prov:BLAINE URENA MD 09/24/17 Reported Medications Clopidogrel Bisulfate (PLAVIX) 75 Mg Tablet, 1 TAB PO QDAY, TAB 04/08/18 Aspirin (ASPIRIN) 81 Mg Tab.chew, 81 MG PO QDAY, TAB.CHEW 04/08/18 Levofloxacin 750 Mg Tab (LEVOFLOXACIN 750 MG TAB) 750 Mg Tablet, 1 TAB PO DAILY 04/08/18 Tramadol Hcl (TRAMADOL HCL) 50 Mg Tablet, 50-100 MG PO Q4-6H, TAB 04/08/18 Nitroglycerin (NITROGLYCERIN) 0.4 Mg Tab.subl, 0.4 MG SL Q5MIN 02/25/18 Carvedilol (CARVEDILOL) 12.5 Mg Tablet, 6.25 MG PO BID, #10 TAB 02/25/18 Metolazone (METOLAZONE) 5 Mg Tablet, 5 MG PO 1 PO mon, wed, and fri, 30 minutes before AM lasix dose 01/28/18 Furosemide (FUROSEMIDE) 40 Mg Tablet, 1 TAB PO DAILY, TAB 01/28/18 Atorvastatin (LIPITOR) 80 Mg Tab, 1 TAB PO QDAY, TAB 01/28/18 Acetaminophen (ACETAMINOPHEN) 325 Mg Tablet, 1 TAB PO QDAY PRN for PAIN, TAB 01/28/18 Discontinued Scripts Ciprofloxacin Hcl (CIPROFLOXACIN HCL) 500 Mg Tablet, 500 MG PO Q12H, #20 TAB Prov:NEDA PETIT V DO 03/04/18 Past Medical/Surgical History Patient has a past medical history of [place], does have heart failure, hypertension, hyperlipidemia, 4 L of oxygen 24 7, cholecystitis which resolved spontaneously, stage IV kidney failure, type 2 diabetes, hypothyroidism, angry and labile lower extremity from cat scratch. Patient denies any pertinent surgical history. Reviewed Nurses Notes: Yes Hx Smoking: Yes Smoking Status: Former Smoker Hx Substance Use Disorder: No Hx Alcohol Use: No Constitutional Vital Sign - Last 24 Hours 04/08/18 04/08/18 04/08/18 04/08/18 13:54 13:57 14:00 14:04 Temp 97.4 Pulse 88 81 Resp 16 23 B/P (MAP) 113/75 113/75 (88) 118/74 (89) Pulse Ox 83 99 O2 Delivery Nasal Cannula 04/08/18 04/08/18 04/08/18 04/08/18 14:19 14:21 14:34 14:49 Pulse 80 82 ??? Resp 18 Pulse Ox 99 96 O2 Flow Rate 3.0 04/08/18 04/08/18 04/08/18 04/08/18 15:04 15:19 15:24 15:30 Pulse 84 78 83 Resp 20 19 23 B/P (MAP) 116/107 (110) Pulse Ox 100 97 99 04/08/18 04/08/18 04/08/18 04/08/18 15:39 15:54 16:09 16:24 Pulse ??? 80 79 80 Resp 04 02 18 Pulse Ox 96 99 99 04/08/18 04/08/18 16:30 16:39 Pulse 82 Resp 12 B/P (MAP) 108/67 (81) Pulse Ox 98 Physical Exam General Appearance: The patient is alert, has no immediate need for airway protection and no current signs of toxicity. Respiratory: Chest is non tender, lungs are clear to auscultation. Cardiac: regular rate and rhythm Gastrointestinal: Abdomen is distended and non tender, no masses, bowel sounds hypoactive. Musculoskeletal: Neck: Neck is supple and non tender. Extremities have full range of motion and are non tender. Skin: No rashes or lesions. DIFFERENTIAL DIAGNOSIS: After history and physical exam differential diagnosis was considered for shortness of breath including but not limited to pulmonary infectious process, COPD, asthma, pulmonary embolus and congestive heart failure. Medical Decision Making Data Points Result Diagram: 04/08/18 1415 04/08/18 1415 Laboratory Hematology Test 04/08/18 14:15 Red Blood Count 3.64 M/uL (4.17-5.56) Mean Corpuscular Volume 90.7 fL (80.0-96.0) Mean Corpuscular Hemoglobin 29.5 pg (26.0-33.0) Mean Corpuscular Hemoglobin Concent 32.5 g/dL (32.0-36.0) Red Cell Distribution Width 17.1 % (11.5-14.5) Mean Platelet Volume 8.6 fL (7.2-11.1) Neutrophils (%) (Auto) 83.9 % (39.4-72.5) Lymphocytes (%) (Auto) 6.7 % (17.6-49.6) Monocytes (%) (Auto) 7.5 % (4.1-12.4) Eosinophils (%) (Auto) 1.2 % (0.4-6.7) Basophils (%) (Auto) 0.7 % (0.3-1.4) Nucleated RBC Relative Count (auto) 0.0 /100WBC Neutrophils # (Auto) 8.3 K/uL (2.0-7.4) Lymphocytes # (Auto) 0.7 K/uL (1.3-3.6) Monocytes # (Auto) 0.7 K/uL (0.3-1.0) Eosinophils # (Auto) 0.1 K/uL (0.0-0.5) Basophils # (Auto) 0.1 K/uL (0.0-0.1) Nucleated RBC Absolute Count (auto) 0.00 K/uL Sodium Level 140 mmol/L (137-145) Potassium Level 3.3 mmol/L (3.5-5.0) Chloride Level 98 mmol/L (98-107) Carbon Dioxide Level 30 mmol/L (22-31) Blood Urea Nitrogen 51 mg/dl (7-18) Creatinine 2.00 mg/dl (0.52-1.04) Glomerular Filtration Rate Calc 24.2 Random Glucose 124 mg/dl (75-110) Calcium Level 10.1 mg/dl (8.4-10.2) Total Bilirubin 0.5 mg/dl (0.2-1.3) Aspartate Amino Transf (AST/SGOT) 18 U/L (0-35) Alanine Aminotransferase (ALT/SGPT) 28 U/L (0-56) Alkaline Phosphatase 81 U/L (0-126) B-Type Natriuretic Peptide 4680 pg/ml (0-100) Total Protein 5.8 g/dl (6.3-8.2) Albumin 3.2 g/dl (3.5-5.0) Chemistry Test 04/08/18 14:15 White Blood Count 9.9 k/uL (4.5-11.0) Red Blood Count 3.64 M/uL (4.17-5.56) Hemoglobin 10.7 g/dL (12.0-16.0) Hematocrit 33.0 % (34.0-47.0) Mean Corpuscular Volume 90.7 fL (80.0-96.0) Mean Corpuscular Hemoglobin 29.5 pg (26.0-33.0) Mean Corpuscular Hemoglobin Concent 32.5 g/dL (32.0-36.0) Red Cell Distribution Width 17.1 % (11.5-14.5) Platelet Count 228 K/uL (150-450) Mean Platelet Volume 8.6 fL (7.2-11.1) Neutrophils (%) (Auto) 83.9 % (39.4-72.5) Lymphocytes (%) (Auto) 6.7 % (17.6-49.6) Monocytes (%) (Auto) 7.5 % (4.1-12.4) Eosinophils (%) (Auto) 1.2 % (0.4-6.7) Basophils (%) (Auto) 0.7 % (0.3-1.4) Nucleated RBC Relative Count (auto) 0.0 /100WBC Neutrophils # (Auto) 8.3 K/uL (2.0-7.4) Lymphocytes # (Auto) 0.7 K/uL (1.3-3.6) Monocytes # (Auto) 0.7 K/uL (0.3-1.0) Eosinophils # (Auto) 0.1 K/uL (0.0-0.5) Basophils # (Auto) 0.1 K/uL (0.0-0.1) Nucleated RBC Absolute Count (auto) 0.00 K/uL Glomerular Filtration Rate Calc 24.2 Calcium Level 10.1 mg/dl (8.4-10.2) Total Bilirubin 0.5 mg/dl (0.2-1.3) Aspartate Amino Transf (AST/SGOT) 18 U/L (0-35) Alanine Aminotransferase (ALT/SGPT) 28 U/L (0-56) Alkaline Phosphatase 81 U/L (0-126) B-Type Natriuretic Peptide 4680 pg/ml (0-100) Total Protein 5.8 g/dl (6.3-8.2) Albumin 3.2 g/dl (3.5-5.0) EKG/Imaging EKG Interpretation 12 lead EKG: Rhythm: normal sinus rhythm with a ventricular rate of 78 beats per minute [place]: normal QRS: normal ST segments: normal Imaging Head CT scan without contrast COMPARISONS: None ADDITIONAL PERTINENT HISTORY: Fall one day ago TECHNIQUE: Multiple axial images were obtained from the skull base to the vertex without IV contrast. One of the following dose optimization techniques was utilized in the performance of this exam: Automated exposure control; adjustment of the mA and/or kV according to the patient's size; or use of an iterative reconstruction technique. Specific details can be referenced in the facility's radiology CT exam operational policy. FINDINGS: Midline shift: Negative Ventricles: Mild enlargement of the lateral and third ventricles. Otherwise negative Brain parenchyma: Patchy hypoattenuation within the periventricular and subcortical white matter, nonspecific but likely representing small vessel ischemic change on a chronic basis. No intraparenchymal hemorrhage or mass effect. Extra-axial spaces: Moderate cerebral atrophy. Intracranial vasculature: Cavernous internal carotid artery calcifications. Otherwise negative Osseous structures: Negative Paranasal sinuses and mastoid air cells: Mild mucosal thickening involving the left maxillary sinus. Surrounding soft tissues and orbits: Negative IMPRESSION: 1. Age related changes as described above. 2. No evidence of acute intracranial pathology. Report Dictated By: Carlos Arriaga MD at 04/08/2018 4:14 PM Report E-Signed By: Carlos Arriaga MD at 04/08/2018 4:17 PM Exam type: CHEST PA AND LAT History: RESP DISTRESS Comparison: September 22, 2017. Findings: There are moderate bilateral pleural effusions present. The thickening bilaterally that appears chronic. There is mild cephalization of the pulmonary vascular markings. Cardiac silhouette appears stable IMPRESSION: 1. Moderate posterior layering bilateral pleural effusions Peribronchial thickening bilaterally Cephalization of the pulmonary vascular markings suggesting mild pulmonary edema Report Dictated By: Jing Su MD at 04/08/2018 3:33 PM Report E-Signed By: Jing Su MD at 04/08/2018 3:34 PM ED Course/Re-evaluation ED Course Patient was admitted to an exam room, history and physical were obtained. Differential diagnoses were considered. On examination patient does have significant swelling to bilateral lower extremities. She is swollen up to the knees. Patient did receive a dose of IV Lasix here in the emergency room. A CBC, CMP, chest x-ray, EKG, troponin, BNP were ordered. Lab work showed a negative troponin of 0.019. EKG showed a normal sinus rhythm. CBC and CMP were unremarkable. BNP was elevated at 4600. Reviewing her previous lab work patient did have an elevated troponin, at that time measuring 2600. Chest x-ray did show mild pulmonary edema. While I was waiting for the chest x-ray to be red patient didn't inform the nurse that she did have a fall last night and hit head. I did go in and reevaluated her. She did not have any neck pain, no head pain. I did go ahead and order a CT scan of the head which was normal. After have the results back I spoke with patient and the family discussing the results. I believe the patient does need to be admitted and diuresed. I spoke with Dr. Nannette Urena, hospitalist, who agreed to get the patient for admission. I discussed this with the patient and their family and they verbalized understanding and agreement with plan. Decision to Disposition Date: Apr 08, 2018 Decision to Disposition Time: 16:43 Depart Departure Latest Vital Signs Vital Signs Date Time Temp Pulse Resp B/P (MAP) Pulse Ox O2 Delivery O2 Flow Rate FiO2 04/08/18 16:39 82 12 98 04/08/18 16:30 108/67 (81) 04/08/18 14:21 3.0 04/08/18 13:54 97.4 Nasal Cannula Impression: Primary Impression: Congestive heart failure (CHF) Condition: Condition Unchanged Disposition: Admitted from ER Problem Qualifiers Primary Impression: Congestive heart failure (CHF) Heart failure type: systolic Heart failure chronicity: acute on chronic Qualified Codes: I50.23 - Acute on chronic systolic (congestive) heart failure MARCELLUS SONG Apr 08, 2018 13:59
[2018-04-08] MEDS ORDERED: LEVO750T27 PO (14:10)
[2018-04-08] MEDS ORDERED: ASPI81TA94 PO (14:10)
[2018-04-08] MEDS ORDERED: TRAM-420 PO (14:10)
[2018-04-08] MEDS ORDERED: FUROSEMIDE 40 MG/4 ML VIAL IVP ONE (14:25)
--- NOTE | 2018-04-08 14:31 | EKG ---
FACILITY: [facility] PATIENT NAME: BAM LOCKWOOD : [id number] MR: [id number] V: [id number] EXAM DATE: ORDERING PHYSICIAN: MARCELLUS SONG TECHNOLOGIST: Test Reason : SOB Blood Pressure : / mmHG Vent. Rate : 078 BPM Atrial Rate : 078 BPM P-R Int : 146 ms QRS Dur : 080 ms QT Int : 392 ms P-R-T Axes : 011 024 067 degrees QTc Int : 446 ms Normal sinus rhythm Normal ECG When compared with ECG of 21-SEP-2017 13:23, Borderline criteria for Anterolateral infarct are no longer present Confirmed by TICO VYAS ([id number]) on 04/08/2018 7:54:29 PM Referred By: Confirmed By:TICO VYAS
[2018-04-08 14:34] LABS: PLATELET COUNT, AUTOMATED 228 K/uL (150-450)
--- NOTE | 2018-04-08 15:39 | RADIOLOGY IMAGING REPORT ---
FACILITY: [facility] PATIENT NAME: Maribel Valdovinos : 1940 MR: [id number] V: [id number] EXAM DATE: ORDERING PHYSICIAN: MARCELLUS SONG TECHNOLOGIST: Location: [facility] Patient: Maribel Valdovinos : 1940 Visit/Account:[id number] Date of Sevice: 04/08/2018 Exam type: CHEST PA AND LAT History: RESP DISTRESS Comparison: September 22, 2017. Findings: There are moderate bilateral pleural effusions present. The thickening bilaterally that appears chronic. There is mild cephalization of the pulmonary vascul ar markings. Cardiac silhouette appears stable IMPRESSION: 1. Moderate posterior layering bilateral pleural effusions Peribronchial thickening bilaterally Cephalization of the pulmonary vascular markings suggesting mild pulmonary edema Report Dictated By: Jing Su MD at 04/08/2018 3:33 PM Report E-Signed By: Jing Su MD at 04/08/2018 3:34 PM WSN:[email or web address]
--- NOTE | 2018-04-08 16:21 | RADIOLOGY IMAGING REPORT ---
FACILITY: [facility] PATIENT NAME: Maribel Valdovinos : 1940 MR: [id number] V: [id number] EXAM DATE: ORDERING PHYSICIAN: MARCELLUS SONG TECHNOLOGIST: [place] [facility] Maribel Valdovinos : 1940 Visit/Account:[id number] Date of Sevice: 04/08/[address] scan without contrast COMPARISONS: None ADDITIONAL PERTINENT HISTORY: Fall one day ago TECHNIQUE: Multiple axial images were obtained from the skull base to the vertex without IV contrast . One of the following dose optimization techniques was utilized in the performance of this exam: Aut omated exposure control; adjustment of the mA and/or kV according to the patient's size; or use of an iterative reconstruction technique. Specific details can be referenced in the facility's radiology CT exam operational policy. FINDINGS: Midline shift: Negative Ventricles: Mild enlargement of the lateral and third ventricles. Otherwise negative Brain parenchyma: Patchy hypoattenuation within the periventricular and subcortical white matter, no nspecific but likely representing small vessel ischemic change on a chronic basis. No intraparenchyma l hemorrhage or mass effect. Extra-axial spaces: Moderate cerebral atrophy. Intracranial vasculature: Cavernous internal carotid artery calcifications. Otherwise negative Osseous structures: Negative Paranasal sinuses and mastoid air cells: Mild mucosal thickening involving the left maxillary sinus. Surrounding soft tissues and orbits: Negative IMPRESSION: 1. Age related changes as described above. 2. No evidence of acute intracranial pathology. Report Dictated By: Carlos Arriaga MD at 04/08/2018 4:14 PM Report E-Signed By: Carlos Arriaga MD at 04/08/2018 4:17 PM WSN:[email or web address]
[2018-04-08 17:21] VITALS: BP 116/71
[2018-04-08] MEDS ORDERED: FLUSH 10 ML SYR IVP PRN (18:15)
[2018-04-08] MEDS ORDERED: POTASSIUM CHL 10 MEQ TABCR PO ONE (18:15)
[2018-04-08] MEDS ORDERED: traMADol 50 MG TAB PO PRN (18:30)
--- NOTE | 2018-04-08 19:00 | History & Physical ---
History of Present Illness Chief Complaint RUQ discomfort and increased LE edema for 1-2 weeks. History of Present Illness The patient is a 78 year old female with PMH significant for CAD, CHF (diastolic, systolic and R heart) and chronic LE edema with chronic R leg wound who presented to [facility] ER today with complaints of RUQ discomfort and increased LE edema for 1-2 weeks. The patient has a known hx of CAD and had a heart catheterization done in September which showed blockage of all of her main arteries per her granddaughters report. There were no blockages amenable to stent placement. Echo done at [facility] in September of this year showed her left systolic function to be severely decreased with an EF of 35%, severe decrease in diastolic function, and mild decrease in RV function, severe pulmonary HTN, and severe mitral regurgitation. The patient then had a stent placed in her R leg at the end of February. She was placed on Plavix after stent placement. The patient has a chronic wound in the RLE which developed after a cat scratch. She is followed by Annmarie, a wound care provider, at [facility]. She has been on multiple antibiotics for this wound. On April 01 she was seen at [facility] and was placed on Levaquin 750mg daily. She also has chronic renal insufficiency with a creatinine of 1.7-2.0 (per review of the EMR). The patient has a DNI/DNR in place per her report. Per the patient's granddaughter, the patient has not been taking her diuretics because she does not like to have to get up out of her recliner to use the restroom. The patient sleeps in her recliner at night as well due to orthopnea. The patient denies missing any of her medications. She is supposed to take Lasix 40mg daily and metolazone 5mg on in addition to the Lasix. The patient has had an increase in LE edema, increase in dyspnea and decrease in appetite over the past 1-2 weeks. She has chronic RUQ pain which comes and goes. This has also been more pronounced over the past few days. The patient attributes this to "water build up". History Problems: (1) CKD (chronic kidney disease) Status: Chronic (2) Congestive heart failure (CHF) Status: Chronic (3) Type II diabetes mellitus Status: Chronic (4) Ulcer of right lower leg Status: Chronic (5) Mitral regurgitation (6) Atrophy of right kidney Status: Chronic (7) HTN (hypertension) Status: Chronic (8) Hypothyroidism Status: Chronic (9) Hyperlipidemia Status: Chronic Home Meds Active Scripts Levothyroxine Sodium (LEVOTHYROXINE SODIUM) 50 Mcg Tablet, 50 MCG PO QDAY, #30 TAB 1 Refill Prov:BLAINE WASSERMAN MD 09/24/17 Reported Medications Aspirin (ASPIRIN) 81 Mg Tab.chew, 81 MG PO QDAY, TAB.CHEW 04/08/18 Levofloxacin 750 Mg Tab (LEVOFLOXACIN 750 MG TAB) 750 Mg Tablet 04/08/18 Tramadol Hcl (TRAMADOL HCL) 50 Mg Tablet, 50-100 MG PO Q4-6H, TAB 04/08/18 Nitroglycerin (NITROGLYCERIN) 0.4 Mg Tab.subl, 0.4 MG SL Q5MIN 02/25/18 Carvedilol (CARVEDILOL) 12.5 Mg Tablet, 6.25 MG PO BID, #10 TAB 02/25/18 Metolazone (METOLAZONE) 5 Mg Tablet, 5 MG PO 1 PO mon, wed, and fri, 30 minutes before AM lasix dose 01/28/18 Furosemide (FUROSEMIDE) 40 Mg Tablet, 1 TAB PO BID, TAB 01/28/18 Atorvastatin (LIPITOR) 80 Mg Tab, 1 TAB PO QDAY, TAB 01/28/18 Acetaminophen (ACETAMINOPHEN) 325 Mg Tablet, 1 TAB PO QDAY PRN for PAIN, TAB 01/28/18 Discontinued Scripts Ciprofloxacin Hcl (CIPROFLOXACIN HCL) 500 Mg Tablet, 500 MG PO Q12H, #20 TAB Prov:NEDA PETIT DO 03/04/18 Allergies: Coded Allergies: amoxicillin (Verified Allergy, Intermediate, hives, 03/07/18) clavulanic acid (Verified Allergy, Intermediate, hives, 03/07/18) hydrochlorothiazide (Verified Allergy, Intermediate, RASH, 03/07/18) Patient History: FH: CAD (coronary artery disease) FATHER FH: hearing loss MOTHER BROTHER OR SISTER FH: rheumatoid arthritis CHILD Other Social/Family Hx The patient lives with her son. She is . She worked for [employer] for 20 years and then for [employer] for 15 years and then worked at [employer] until she retired. Hx Smoking: Yes (Quit at 20years old) Smoking Status: Former Smoker (In HS only.) Hx Alcohol Use: Yes (Quit 1 year ago) Alcohol Use: Occassional Hx Substance Use Disorder: No History of IV Drug Use: No Review of Systems All Systems Reviewed/Normal: Yes, Except as Noted Constitutional: Weight Gain; No Fever Neurological: Weakness Cardiovascular: No Chest Pain, No Palpitations Respiratory: Shortness of Breath Gastrointestinal: No Nausea, No Vomiting; Early Satiety, Abdominal Pain (RUQ pain.) Genitourinary: No Dysuria Exam Vital Signs Vital Signs Date Time Temp Pulse Resp B/P (MAP) Pulse Ox O2 Delivery O2 Flow Rate FiO2 04/08/18 17:21 98.1 77 16 116/71 (86) 99 Nasal Cannula 04/08/18 14:21 3.0 General Appearance: Alert, Awake, No Acute Distress, Afebrile Neuro: No Gross deficits Eyes: PERRLA ENT: Normal Neck: No Masses, Other (Thyroid normal in size and anodular.) Cardiovascular: Regular Rate and Rhythm, Other (3+ pitting edema both LE. Intermittent heart gallop.) Respiratory: Clear to Auscultation GI: Abd Soft and Non-Tender Lymph: Cervical Nodes Benign Extremities: Warm, Perfused, Edema (3+ pitting bilaterally to below the knee.) Integumentary: Other (Large, deep wound RLE. No foul odor. No obvious purulent drainange noted.) Psych: Alert & Oriented X3, Appropriate Mood & Affect Medical Decision Making Data Points Result Diagram: 04/08/18 1415 04/08/18 1415 Item Value Date Time Calcium Level 10.1 mg/dl 04/08/18 1415 Total Bilirubin 0.5 mg/dl 04/08/18 1415 Aspartate Amino Transf (AST/SGOT) 18 U/L 04/08/18 1415 Alanine Aminotransferase (ALT/SGPT) 28 U/L 04/08/18 1415 Alkaline Phosphatase 81 U/L 04/08/18 1415 Total Protein 5.8 g/dl L 04/08/18 1415 Albumin 3.2 g/dl L 04/08/18 1415 Troponin I 0.019 ng/ml 04/08/18 1415 B-Type Natriuretic Peptide 4680 pg/ml H 04/08/18 1415 EKG / Imaging EKG Interpretation FACILITY: [facility] PATIENT NAME: MARIBEL VALDOVINOS : [id number] MR: [id number] V: [id number] EXAM DATE: ORDERING PHYSICIAN: MARCELLUS SONG TECHNOLOGIST: Test Reason : SOB Blood Pressure : / mmHG Vent. Rate : 078 BPM Atrial Rate : 078 BPM P-R Int : 146 ms QRS Dur : 080 ms QT Int : 392 ms P-R-T Axes : 011 024 067 degrees QTc Int : 446 ms Normal sinus rhythm Normal ECG When compared with ECG of 21-SEP-2017 13:23, Borderline criteria for Anterolateral infarct are no longer present Referred By: Confirmed By: [id number] T: / Imaging FACILITY: [facility] PATIENT NAME: Maribel Valdovinos : 1940 MR: [id number] V: [id number] EXAM DATE: ORDERING PHYSICIAN: MARCELLUS SONG TECHNOLOGIST: Location: [facility] Patient: Maribel Valdovinos : 1940 Visit/Account:[id number] Date of Sevice: 04/08/2018 Exam type: CHEST PA AND LAT History: RESP DISTRESS Comparison: September 22, 2017. Findings: There are moderate bilateral pleural effusions present. The thickening bilaterally that appears chronic. There is mild cephalization of the pulmonary vascular markings. Cardiac silhouette appears stable IMPRESSION: 1. Moderate posterior layering bilateral pleural effusions Peribronchial thickening bilaterally Cephalization of the pulmonary vascular markings suggesting mild pulmonary edema Report Dictated By: Jing Su MD at 04/08/2018 3:33 PM Report E-Signed By: Jing Su MD at 04/08/2018 3:34 PM WSN:[email or web address] Pre-Admit Course ED Medications Lasix 40mg IV Medical Record Review: Yes Assessment and Plan Problems: (1) Systolic and diastolic CHF, acute on chronic Status: Acute Assessment & Plan: Likely due to noncompliance. Will admit. Monitor Is and Os, daily weights, electrolytes. Lasix 40mg IV given in ER. Will continue this bid and adjust as needed. (2) Leg edema Status: Chronic Assessment & Plan: Due to above. See above. Elevate legs. (3) Ulcer of right lower leg Status: Chronic Assessment & Plan: She was placed on Levaquin 750mg daily on 04/01. The appropriate dose with her CrCl of 23 would be 750mg q48 hours. Will have wound care evaluate and decide if antibiotics are needed. She sees [facility] for wound care on a regular basis as an OP. (4) CKD (chronic kidney disease) Status: Chronic Assessment & Plan: Creatinine is 1.7-2.0 on review of the EMR. (5) HTN (hypertension) Status: Chronic Assessment & Plan: Continue carvedilol bid. (6) Hypothyroidism Status: Chronic Assessment & Plan: TSH ordered. Continue levothyroxine 50mcg daily. (7) Hyperlipidemia Status: Chronic Assessment & Plan: Continue atorvastatin 80mg at HS. (8) Hypokalemia Status: Acute Assessment & Plan: Oral replacement ordered. Monitor BMP. (9) CAD (coronary artery disease) Status: Chronic Assessment & Plan: Continue carvedilol. Repeat troponin at 1999. She sees Dr. Lai and has a f/u appt. scheduled in April. Time Spent on Plan of Care: < 30 min Venous Thromboembolism Antithrombotics Is Pt On Any Antithrombotics?: Yes Exam Sepsis Risk: No Definite Risk EARL WASSERMAN MD Apr 08, 2018 19:00
[2018-04-08 19:28] VITALS: BP 126/112
[2018-04-08] MEDS ORDERED: CLOP75TA43 PO (19:44)
[2018-04-08] MEDS: ATORVASTATIN 40 MG TAB PO SCH (20:25)
[2018-04-08] MEDS: CARVEDILOL 6.25 MG TAB PO SCH (20:25)
[2018-04-08] MEDS: CALCIUM CARBONATE 500 MG CHEW PO PRN (21:49)
[2018-04-08 22:12] VITALS: Ht 149.9 cm; Wt 54.7 kg
[2018-04-08 23:39] VITALS: BP 99/61
[2018-04-09 03:24] VITALS: BP 97/58
[2018-04-09] MEDS: LEVOTHYROXINE SOD 0.05 MG TAB PO SCH (06:20)
[2018-04-09 06:58] LABS: PLATELET COUNT, AUTOMATED 199 K/uL (150-450)
[2018-04-09 07:48] VITALS: BP 109/68
[2018-04-09] MEDS ORDERED: POTASSIUM CHL 10 MEQ TABCR PO SCH (08:00)
[2018-04-09] MEDS: FUROSEMIDE 40 MG/4 ML VIAL IVP SCH ×2 (08:58→13:48)
[2018-04-09] MEDS: CARVEDILOL 6.25 MG TAB PO SCH ×2 (08:59→20:44)
[2018-04-09] MEDS: POTASSIUM CHL 20 MEQ TABCR PO SCH ×3 (08:59→17:51)
[2018-04-09] MEDS: ENOXAPARIN 40 MG/0.4ML SYR SC SCH (09:00)
[2018-04-09] MEDS: CLOPIDOGREL BISULFATE 75MG TAB PO SCH (09:00)
[2018-04-09 11:38] VITALS: BP 108/66
--- NOTE | 2018-04-09 11:50 | Hospitalist Progress Note ---
Subjective Progress Notes Subjective This patient was admitted for heart failure. She had no acute events overnight. Patient Complains of: Cardiovascular: No: Chest Pain Respiratory: No: Shortness of Breath Physical Exam Vital Signs Date Time Temp Pulse Resp B/P (MAP) Pulse Ox O2 Delivery O2 Flow Rate FiO2 04/09/18 11:38 97.6 74 16 108/66 (80) 97 Nasal Cannula 1.0 Intake and Output 04/09/18 07:00 Intake Total 0 ml Balance 0 ml Intake Oral 0 ml # Voids 3 Cardiovascular: Regular Rate and Rhythm, Other (JVD present.) Respiratory: Clear to Auscultation Extremities: Edema Result Diagram: 04/09/1861604/09/18616 Assessment and Plan Problems: (1) Systolic and diastolic CHF, acute on chronic Status: Acute Assessment & Plan: She did present with increased shortness of breath and edema. She does report that she has been noncompliant with her diuretics. Her last echocardiogram showed an ejection fraction of 35% and severe diastolic failure. She has responded to IV Lasix and her weight is down 2kg since admission. She will remain on IV Lasix through today. (2) Ulcer of right lower leg Status: Chronic Assessment & Plan: She was placed on Levaquin 750mg daily on 04/01. The appropriate dose with her CrCl of 23 would be 750mg q48 hours. Will have wound care evaluate and decide if antibiotics are needed. She sees [facility] for wound care on a regular basis as an OP. (3) HTN (hypertension) Status: Chronic Assessment & Plan: She is on chronic treatment with carvedilol. (4) Hypothyroidism Status: Chronic Assessment & Plan: She is on chronic treatment with Synthroid. A TSH is pending. (5) Hyperlipidemia Status: Chronic Assessment & Plan: She is on chronic treatment with atorvastatin. (6) Hypokalemia Status: Acute Assessment & Plan: Oral replacement ordered. Monitor BMP. (7) Chronic kidney disease (CKD) stage G4/A1, severely decreased glomerular filtration rate (GFR) between 15-29 mL/min/1.73 square meter and albuminuria creatinine ratio less than 30 mg/g Exam Sepsis Risk: No Definite Risk Problem Qualifiers (1) HTN (hypertension): Hypertension type: essential hypertension Qualified Codes: I10 - Essential (primary) hypertension DEVI CARSON DO Apr 09, 2018 11:50
[2018-04-09 15:14] VITALS: BP 115/66
--- NOTE | 2018-04-09 15:31 | Medical Nutrition Therapy ---
Nutrition Anthropometrics Height (Inches): 59.00 Height (Calculated Centimeters: 149.764146 Weight (Pounds): 128 Weight (Calculated Kilograms): 58.060 BMI: 25.9 Néstor Nutrition Score: Adequate Néstor Nutrition Risk Score: 17 Dietary Referral Nutrition Risk Factors: Unplanned Loss >10lbs Nutrition Risk Comment: Physical Findings Physical Appearance: Overweight BMI 25-29 Skin Appearance Skin Appearance: Edema Edema Location Modifier: Both Edema Location: Lower Extremity Type of Edema: Degree of Edema: 3+ Gastrointestinal Symptoms GI Symtoms: Tube Present: Bowel Sounds: Recent Bowel Pattern: Stool Characteristics: Nutrition/Food History No Significant Nutr. HX Nutritional Diagnosis Nutritional Risk Acuity 1: Acute/ES Renal Nutritional Risk Acuity 2: CHF w/Complication Past Medical History: CKD, Congestive heart failure, Type II diabetes mellitus, Ulcer of right lower leg, Mitral regurgitation, Athrophy of right kidney, HTN, Hothyroidism, Hyperlipidemia Nutritional Acuity: 1-High Nutrition Diagnosis: Decreased Nutrient Needs Nutrition Etiology: Physiological Causes Nutrition Problem/Etiology/Sym: Decreased Nutrient Needs r/t heart failure AEB Conditions associated with a diagnosis or treatment that require a specific type and/or amount of nutrient, e.g., heart failure (sodium, fluid) Energy Requirement: 1565 ([place]-St Jeor: Actual BW X 1.6) Adjusted Energy Requirement Re: 58 (Actual BW Kg X 1.0) Nutrition Intervention: Incr diet as tolerated Drug: Diuretics Drug/Nutrition Recommendations: Patient Taking K+ Nutrition Monitoring & Eval Nutrition Goals: Eat 75-100% Meal RD Patient Assessment Time: [address] Assessment Type: RD Assessment Patient Nutrition Acuity: 1-High Follow Up Date: Apr 10, 2018 Nutritional Comment: 04/09/18 Pt admitted for CHF and leg edema. Low H/H, Alb 3.2, BNP 4680, High BUN/Creat, Glu 99. Pt overwt with BMI of 26.5, however may be inaccurate d/t edema. Pt receiving CHF, Diabetes diet and consuming 25-50% of meals. Follow labs, etc., encourage intake. -STEVE CARLSON Apr 09, 2018 15:31
[2018-04-09 20:00] VITALS: BP 118/70
[2018-04-09] MEDS: CALCIUM CARBONATE 500 MG CHEW PO PRN (20:44)
[2018-04-09] MEDS: ATORVASTATIN 40 MG TAB PO SCH (20:44)
[2018-04-10 02:50] VITALS: BP 117/69
[2018-04-10] MEDS: LEVOTHYROXINE SOD 0.05 MG TAB PO SCH (05:32)
[2018-04-10] MEDS: CARVEDILOL 6.25 MG TAB PO SCH ×2 (09:42→20:56)
[2018-04-10] MEDS: CLOPIDOGREL BISULFATE 75MG TAB PO SCH (09:42)
[2018-04-10] MEDS: POTASSIUM CHL 10 MEQ TABCR PO SCH ×3 (09:42→17:34)
[2018-04-10] MEDS: ENOXAPARIN 40 MG/0.4ML SYR SC SCH (09:42)
[2018-04-10] MEDS: FUROSEMIDE 40 MG TAB PO SCH ×2 (09:44→13:49)
[2018-04-10 11:19] VITALS: BP 97/52
[2018-04-10] MEDS ORDERED: GLYCERIN ADULT SUPP PR ONE (11:45)
[2018-04-10] MEDS ORDERED: GLYCERIN ADULT SUPP PR PRN (13:15)
--- NOTE | 2018-04-10 15:28 | Hospitalist Progress Note ---
Subjective Progress Notes Subjective No new complaints. Physical Exam Vital Signs Date Time Temp Pulse Resp B/P (MAP) Pulse Ox O2 Delivery O2 Flow Rate FiO2 04/10/18 11:19 97.6 93 16 97/52 (67) 94 Nasal Cannula 1.5 Intake and Output 04/10/18 07:00 Intake Total 120 ml Balance 120 ml Intake Oral 120 ml # Voids 16 # Bowel Movements 3 General Appearance: Alert, Awake, No Acute Distress Eyes: PERRLA Cardiovascular: Regular Rate and Rhythm Respiratory: Clear to Auscultation GI: Soft and Non-Tender Extremities: Warm, Perfused, Other (1-2+ pitting edema both LE to below the knee.) Integumentary: Other (Large wound RLE bandaged.) Psych: Appropriate Mood & Affect Result Diagram: 04/09/1861604/10/18526 Assessment and Plan Problems: (1) Systolic and diastolic CHF, acute on chronic Status: Acute Assessment & Plan: She did present with increased shortness of breath and edema. She does report that she has been noncompliant with her diuretics. Her last echocardiogram showed an ejection fraction of 35% and severe diastolic failure. She has responded to IV Lasix and her weight is steadily decreasing. Her creatinine increased slightly today. Will switch from IV to oral Lasix. (2) Ulcer of right lower leg Status: Chronic Assessment & Plan: She was placed on Levaquin 750mg daily on 04/01. The appropriate dose with her CrCl of 23 would be 750mg q48 hours. Will have wound care evaluate and decide if antibiotics are needed. She sees [facility] for wound care on a regular basis as an OP. (3) HTN (hypertension) Status: Chronic Assessment & Plan: She is on chronic treatment with carvedilol. (4) Hypothyroidism Status: Chronic Assessment & Plan: She is on chronic treatment with Synthroid. A TSH is pending. (5) Hyperlipidemia Status: Chronic Assessment & Plan: She is on chronic treatment with atorvastatin. (6) Hypokalemia Status: Acute Assessment & Plan: Oral replacement ordered. Monitor BMP. (7) Chronic kidney disease (CKD) stage G4/A1, severely decreased glomerular filtration rate (GFR) between 15-29 mL/min/1.73 square meter and albuminuria creatinine ratio less than 30 mg/g Time Spent on Plan of Care: < 30 min Exam Sepsis Risk: No Definite Risk Problem Qualifiers (1) HTN (hypertension): Hypertension type: essential hypertension Qualified Codes: I10 - Essential (primary) hypertension EARL WASSERMAN MD Apr 10, 2018 15:28
--- NOTE | 2018-04-10 15:28 | Medical Nutrition Therapy ---
Nutrition Anthropometrics Height (Inches): 59.00 Height (Calculated Centimeters: 149.549888 Weight (Pounds): 128 Weight (Calculated Kilograms): 58.060 BMI: 25.9 Néstor Nutrition Score: Adequate Néstor Nutrition Risk Score: 18 Dietary Referral Nutrition Risk Factors: Unplanned Loss >10lbs Nutrition Risk Comment: Physical Findings Physical Appearance: Overweight BMI 25-29 Skin Appearance Skin Appearance: Edema Edema Location Modifier: Both Edema Location: Lower Extremity Type of Edema: Degree of Edema: 3+ Gastrointestinal Symptoms GI Symtoms: Constipation, Change in Bowel Pattern Tube Present: Bowel Sounds: Recent Bowel Pattern: Stool Characteristics: Nutritional Diagnosis Nutritional Risk Acuity 1: Acute/ES Renal Nutritional Risk Acuity 2: CHF w/Complication Nutritional Risk Acuity 3: Fair Appetite Past Medical History: CKD, Congestive heart failure, Type II diabetes mellitus, Ulcer of right lower leg, Mitral regurgitation, Athrophy of right kidney, HTN, Hothyroidism, Hyperlipidemia Nutritional Acuity: 1-High Nutrition Diagnosis: Decreased Nutrient Needs Nutrition Etiology: Physiological Causes Nutrition Problem/Etiology/Sym: Decreased Nutrient Needs r/t heart failure AEB Conditions associated with a diagnosis or treatment that require a specific type and/or amount of nutrient, e.g., heart failure (sodium, fluid) Energy Requirement: 1565 ([place]-St Jeor: Actual BW X 1.6) Adjusted Energy Requirement Re: 58 (Actual BW Kg X 1.0) Diet Type: CHF Diet, Diabetic Nutrition Intervention: Cont diet as ordered, Check glucose Drug: Diuretics Drug/Nutrition Recommendations: Patient Taking K+ Nutrition Monitoring & Eval Nutrition Goals: Eat 75-100% Meal RD Patient Assessment Time: [address] Assessment Type: RD Re-Assessment Patient Nutrition Acuity: 1-High Follow Up Date: Apr 13, 2018 Nutritional Comment: 04/09/18 Pt admitted for CHF and leg edema. Low H/H, Alb 3.2, BNP 4680, High BUN/Creat, Glu 99. Pt overwt with BMI of 26.5, however may be inaccurate d/t edema. Pt receiving CHF, Diabetes diet and consuming 25-50% of meals. Follow labs, etc., encourage intake. -DRT 04/10/18 Low H/H, Glu 150, High BUN/Creat, K+ 3.3. No changes in appetite as intake continues at 25-50%. Encourage intake, etc. -DRT AMAURI-TINGEY,STEVE Apr 10, 2018 15:28
[2018-04-10 15:40] VITALS: BP 115/78
--- NOTE | 2018-04-10 16:01 | Miscellaneous Provider Note ---
Miscellaneous Provider Note Note The patient's son and POA, Jesusita, has toured the [facility]. The patient has been accepted there and the family would like her to discharge there tomorrow. Arrangements had been made prior to admission. EARL WASSERMAN MD Apr 10, 2018 16:01
[2018-04-10 20:25] VITALS: BP 120/80
[2018-04-10] MEDS: ATORVASTATIN 40 MG TAB PO SCH (20:57)
[2018-04-11 00:10] VITALS: BP 96/67
[2018-04-11 05:40] VITALS: BP 93/54
[2018-04-11] MEDS: LEVOTHYROXINE SOD 0.05 MG TAB PO SCH (05:44)
[2018-04-11 07:10] VITALS: BP 104/64
[2018-04-11] MEDS: FUROSEMIDE 40 MG TAB PO SCH (08:34)
[2018-04-11] MEDS: CARVEDILOL 6.25 MG TAB PO SCH (08:34)
[2018-04-11] MEDS: CLOPIDOGREL BISULFATE 75MG TAB PO SCH (08:34)
[2018-04-11] MEDS: ENOXAPARIN 40 MG/0.4ML SYR SC SCH (08:35)
[2018-04-11] MEDS: POTASSIUM CHL 10 MEQ TABCR PO SCH (08:35)
[2018-04-11] MEDS ORDERED: INFLUENZA VIRUS VAC 0.5ML SYR IM ONLY ONE (09:00)
--- NOTE | 2018-04-11 09:32 | General Surgery Consultation ---
History of Present Illness Chief Complaint Right leg wound History of Present Illness 78-year-old female who is known to me as I have seen her a couple times a my office with a right leg wound suffered after a cat scratch. It had progressively become more gangrenous and ultimately she came into the ER over a month ago and was found to have a poor femoral pulse and so she was [facility] where she underwent a interventional radiology endovascular procedure to revascularize her leg. Since then the wound has continued to get worse with increasing size and depth and increasing gangrene. She has been admitted to the hospital with worse CHF. History Problems: (1) Gout Status: Chronic (2) CKD (chronic kidney disease) stage 3, GFR 30-59 ml/min Status: Chronic (3) Type II diabetes mellitus Status: Chronic (4) Atrophy of right kidney Status: Chronic (5) CAD (coronary artery disease) Status: Chronic (6) Hyperlipidemia Status: Chronic (7) Hypothyroidism Status: Chronic (8) Leg edema Status: Chronic (9) CKD (chronic kidney disease) Status: Chronic (10) Congestive heart failure (CHF) Status: Chronic (11) Ulcer of right lower leg Status: Chronic (12) HTN (hypertension) Status: Chronic Home Meds Active Scripts Levothyroxine Sodium (LEVOTHYROXINE SODIUM) 50 Mcg Tablet, 50 MCG PO QDAY, #30 TAB 1 Refill Prov:BLAINE WASSERMAN MD 09/24/17 Reported Medications Clopidogrel Bisulfate (PLAVIX) 75 Mg Tablet, 1 TAB PO QDAY, TAB 04/08/18 Aspirin (ASPIRIN) 81 Mg Tab.chew, 81 MG PO QDAY, TAB.CHEW 04/08/18 Levofloxacin 750 Mg Tab (LEVOFLOXACIN 750 MG TAB) 750 Mg Tablet, 1 TAB PO DAILY 04/08/18 Tramadol Hcl (TRAMADOL HCL) 50 Mg Tablet, 50-100 MG PO Q4-6H, TAB 04/08/18 Nitroglycerin (NITROGLYCERIN) 0.4 Mg Tab.subl, 0.4 MG SL Q5MIN 02/25/18 Carvedilol (CARVEDILOL) 12.5 Mg Tablet, 6.25 MG PO BID, #10 TAB 02/25/18 Metolazone (METOLAZONE) 5 Mg Tablet, 5 MG PO 1 PO mon, wed, and fri, 30 minutes before AM lasix dose 01/28/18 Furosemide (FUROSEMIDE) 40 Mg Tablet, 1 TAB PO DAILY, TAB 01/28/18 Atorvastatin (LIPITOR) 80 Mg Tab, 1 TAB PO QDAY, TAB 01/28/18 Acetaminophen (ACETAMINOPHEN) 325 Mg Tablet, 1 TAB PO QDAY PRN for PAIN, TAB 01/28/18 Discontinued Scripts Ciprofloxacin Hcl (CIPROFLOXACIN HCL) 500 Mg Tablet, 500 MG PO Q12H, #20 TAB Prov:LAURORA,NEDA V DO 03/04/18 Allergies: Coded Allergies: amoxicillin (Verified Allergy, Intermediate, hives, 03/07/18) clavulanic acid (Verified Allergy, Intermediate, hives, 03/07/18) hydrochlorothiazide (Verified Allergy, Intermediate, RASH, 03/07/18) Family History: FH: CAD (coronary artery disease) FATHER FH: hearing loss MOTHER BROTHER OR SISTER FH: rheumatoid arthritis CHILD Review of Systems All Systems Reviewed/Normal: Yes, Except as Noted Exam Vital Signs Vital Signs Date Time Temp Pulse Resp B/P (MAP) Pulse Ox O2 Delivery O2 Flow Rate FiO2 04/11/18 08:43 96 Nasal Cannula 1.5 04/11/18 07:10 97.7 14 104/64 (77) 04/11/18 05:40 88 General Appearance: Alert, Awake, No Acute Distress, Afebrile Medical Decision Making Data Points Result Diagram: 04/09/18 0617 04/11/18 0553 Assessment and Plan Problems: (1) Ulcer of right lower leg Status: Chronic Assessment & Plan: 04/11/18: I had a long discussion with this patient this morning about her options. We had an appointment to see her last week in the office but she did not show up for it and we called her it was indicated to my nurse that she wanted to be comfort measures only and was not interested in any aggressive surgical management of this wound. Over the weekend, Carissa with wound care and physical therapy, contacted me and had a discussion with the patient and let her know that she was discussing options with me over the phone and the patient complied to her that she wanted to discuss surgical options which may include surgical debridement and possibly even amputation depending on how deep the wound is after debridement, if it is to the bone and then amputation would be necessary but if there is healthy soft tissue at the base then wound VAC treatment would be a possibility. She told the patient that I would be in today to discuss these options with her. When I discussed the options with her today, she explicitly says that she would like [place] [facility]. She and her family have apparently discussed this at length and this is what she would like to do and she is very clear and telling me this morning that she does not wish to have any surgical debridement or possible amputation. I discussed what hospice means, that no further treatment other than basic wound care would be performed and that all efforts would be focused on her comfort but not on prolonging her life or getting the wound to heal necessarily. I also told her that in general, hospice means that we are predicting a 6 month or less remaining estimated lifespan which I don't know how we can determine this in her. She indicates her understanding of this but continues to reiterate that this is what she has decided although she mentions that it is possible she could change her mind at some point. Her son, who is in the room and present during this conversation mention several times during this discussion that they are in agreement with this plan. I will back off from a surgical standpoint but if she changes her mind and wishes surgical debridement or possible amputation then let me know so I can reevaluate her and rediscuss these options with her. Condition Stable Time Spent: < 30 min Venous Thromboembolism Antithrombotics Is Pt On Any Antithrombotics?: Yes Problem Qualifiers (1) Ulcer of right lower leg: Non-pressure ulcer stage: unspecified non-pressure ulcer stage Qualified Codes: L97.919 - Non-pressure chronic ulcer of unspecified part of right lower leg with unspecified severity DEVI MYERS MD Apr 11, 2018 09:32
--- NOTE | 2018-04-11 10:22 | Hospitalist Depart ---
Discharge Summary Reason for Hosp/Final Diag: (1) Systolic and diastolic CHF, acute on chronic Status: Acute Hospital Course & Plan: She did present with increased shortness of breath and edema. She does report that she has been noncompliant with her diuretics. Her last echocardiogram showed an ejection fraction of 35% and severe diastolic failure. She has responded to IV Lasix and her weight is steadily decreasing. Her creatinine was increased slightly yesterday. She was switched from IV to oral Lasix. The patient and her family have decided to pursue hospice care. She will be discharged to [facility]. (2) Ulcer of right lower leg Status: Chronic Hospital Course & Plan: She was placed on Levaquin 750mg daily on 04/01. The appropriate dose with her CrCl of 23 would be 750mg q48 hours. She sees [facility] for wound care on a regular basis as an OP. She will stop antibiotic coverage, as she has opted for no treatment of the wound and will go to hospice house today. (3) HTN (hypertension) Status: Chronic Hospital Course & Plan: She is on chronic treatment with carvedilol. (4) Hypothyroidism Status: Chronic Hospital Course & Plan: She is on chronic treatment with Synthroid. A TSH is 23.5, but she is opting for hospice care. We will make no changes at this time. (5) Hyperlipidemia Status: Chronic Hospital Course & Plan: She is on chronic treatment with atorvastatin. (6) Hypokalemia Status: Acute Hospital Course & Plan: Oral replacement was ordered. Resolved. (7) Chronic kidney disease (CKD) stage G4/A1, severely decreased glomerular filtration rate (GFR) between 15-29 mL/min/1.73 square meter and albuminuria cr eatinine ratio less than 30 mg/g Departure Latest Vital Signs Vital Signs 04/11/18 04/11/18 05:40 08:43 Pulse 88 Pulse Ox 96 O2 Delivery Nasal Cannula O2 Flow Rate 1.5 Weight (Pounds): 120 Weight (Ounces): 9.0 Result Diagram: 04/09/18 0617 04/11/18 0553 Condition: Improved Discharge: Hospice Discharge Instructions Home Meds Active Scripts Levothyroxine Sodium (LEVOTHYROXINE SODIUM) 50 Mcg Tablet, 50 MCG PO QDAY, #30 TAB 1 Refill Prov:BLAINE WASSERMAN MD 09/24/17 Reported Medications Clopidogrel Bisulfate (PLAVIX) 75 Mg Tablet, 1 TAB PO QDAY, TAB 04/08/18 Aspirin (ASPIRIN) 81 Mg Tab.chew, 81 MG PO QDAY, TAB.CHEW 04/08/18 Tramadol Hcl (TRAMADOL HCL) 50 Mg Tablet, 50-100 MG PO Q4-6H, TAB 04/08/18 Nitroglycerin (NITROGLYCERIN) 0.4 Mg Tab.subl, 0.4 MG SL Q5MIN 02/25/18 Carvedilol (CARVEDILOL) 12.5 Mg Tablet, 6.25 MG PO BID, #10 TAB 02/25/18 Metolazone (METOLAZONE) 5 Mg Tablet, 5 MG PO 1 PO mon, wed, and fri, 30 minutes before AM lasix dose 01/28/18 Furosemide (FUROSEMIDE) 40 Mg Tablet, 1 TAB PO DAILY, TAB 01/28/18 Atorvastatin (LIPITOR) 80 Mg Tab, 1 TAB PO QDAY, TAB 01/28/18 Acetaminophen (ACETAMINOPHEN) 325 Mg Tablet, 1 TAB PO QDAY PRN for PAIN, TAB 01/28/18 Discontinued Reported Medications Levofloxacin 750 Mg Tab (LEVOFLOXACIN 750 MG TAB) 750 Mg Tablet, 1 TAB PO DAILY 04/08/18 Discontinued Scripts Ciprofloxacin Hcl (CIPROFLOXACIN HCL) 500 Mg Tablet, 500 MG PO Q12H, #20 TAB Prov:NEDA PETIT V 03/04/18 Diet: Regular Activity: As Tolerated Copies to: RACHANA CHRISTY ; Venous Thromboembolism Antithrombotics Is Pt On Any Antithrombotics?: Yes Problem Qualifiers (1) Ulcer of right lower leg: Non-pressure ulcer stage: unspecified non-pressure ulcer stage Qualified Codes: L97.919 - Non-pressure chronic ulcer of unspecified part of right lower leg with unspecified severity (2) HTN (hypertension): Hypertension type: essential hypertension Qualified Codes: I10 - Essential (primary) hypertension MARIO RINALDI [employer] Apr 11, 2018 10:22
== END 2018-04-11 11:50 | disposition hospice, home (50) | DRG 291 ==
LOC: ER 13:52 → MED 16:47
PROVIDERS: ADMIT Internal Medicine; ATTEND Internal Medicine
DX: I13.0 Hypertensive heart and chronic kidney disease with heart failure and stage 1 through stage 4 chronic kidney disease, or unspecified chronic kidney disease (principal); I50.43 Acute on chronic combined systolic (congestive) and diastolic (congestive) heart failure; N18.4 Chronic kidney disease, stage 4 (severe); L97.919 Non-pressure chronic ulcer of unspecified part of right lower leg with unspecified severity; E11.22 Type 2 diabetes mellitus with diabetic chronic kidney disease; Z51.5 Encounter for palliative care; I25.110 Atherosclerotic heart disease of native coronary artery with unstable angina pectoris; T50.2X6A Underdosing of carbonic-anhydrase inhibitors, benzothiadiazides and other diuretics, initial encounter; E78.5 Hyperlipidemia, unspecified; Z66 Do not resuscitate; I27.20 Pulmonary hypertension, unspecified; I34.0 Nonrheumatic mitral (valve) insufficiency; N26.1 Atrophy of kidney (terminal); E87.6 Hypokalemia; E03.9 Hypothyroidism, unspecified; Z91.128 Patient's intentional underdosing of medication regimen for other reason; W19.XXXA Unspecified fall, initial encounter; Z88.0 Allergy status to penicillin; Z88.8 Allergy status to other drugs, medicaments and biological substances; I25.2 Old myocardial infarction; Z99.81 Dependence on supplemental oxygen; Z87.891 Personal history of nicotine dependence
CPT/HCPCS: 36415; 70450; 71046; 82040; 82247; 82310; 82374; 82435; 82565; 82947; 83735; 83880; 84075; 84132; 84155; 84295; 84443; 84450; 84460; 84484; 84520; 85025; 93005; 96374; 97161; 97163; 99285; J1650; J1940

== ENCOUNTER 2018-04-11 03:46 | Outpatient (RCR) | payer MEDICARE ==
[2018-04-08 22:12] VITALS: BMI 26.5
[~2018-04-11 03:46] MED LIST changes: +ASPI81TA94 PO; +CLOP75TA43 PO; +LEVO750T27 PO; +TRAM-420 PO
== END 2018-04-11 11:07 | disposition home or self-care (01) ==
LOC: TCM 03:46
PROVIDERS: ATTEND Nurse Practitioner
DX: Z02.9 Encounter for administrative examinations, unspecified (principal)